=== PATIENT | female | born 1960 | race Caucasian/White ===

== ENCOUNTER 2020-06-02 10:41 | Outpatient (NON) | payer MEDICARE, SELFPAY ==
[2020-06-02 11:04] LABS: Alanine Aminotransferase 19 U/L (14-59); Albumin Level 3.4 g/dL (3.4-5.0); Alkaline Phosphatase 88 U/L (46-116); Anion Gap 3 mmol/L (8-16); Aspartate Amino Transferase < 10 U/L (15-37); Bilirubin,Total 0.4 mg/dL (0.00-1.00); Blood Urea Nitrogen 13 mg/dL (7-18); Calcium 9.2 mg/dL (8.5-10.1); Carbon Dioxide 35 mmol/L (21-32); Chloride 99 mmol/L (98-108); Estimated Glomerular Filt Rate 60; Glucose 216 mg/dL (70-99); Osmolality Calculated 291 mOsm/kg (285-295); Sodium 137 mmol/L (136-145); Total Protein 6.9 g/dL (6.4-8.2)
== END 2020-06-02 10:42 ==
LOC: CHSLAB 10:44
PROVIDERS: Visit Provider Family Medicine
DX: I87.333 Chronic venous hypertension (idiopathic) with ulcer and inflammation of bilateral lower extremity (principal); E11.9 Type 2 diabetes mellitus without complications; I11.0 Hypertensive heart disease with heart failure; I50.42 Chronic combined systolic (congestive) and diastolic (congestive) heart failure
CPT/HCPCS: 36415; 80053

== ENCOUNTER 2020-07-12 10:24 | Outpatient (CLI) | payer MEDICARE, OTHER, SELFPAY ==
--- NOTE | ~2020-07-12 | US_ITS ---
EXAMINATION: US pelvic complete w TV DATE: 07/12/2020 11:36 INDICATION: Personal history of other diseases of the female genital tract, postmenopausal bleeding TECHNIQUE: Multiple transabdominal and endovaginal sonographic images of the pelvis were obtained. COMPARISON: None. FINDINGS: The uterus measures 3.3 x 1.6 x 3.5 cm. The endometrial complex measures 5 mm. The ovaries are not visualized however no adnexal abnormality is seen. There is no free fluid in the pelvis. IMPRESSION: 1. No sonographic correlate for the patient's symptoms. Reviewed, dictated and finalized at location A.
== END 2020-07-12 10:25 | disposition home or self-care (01) ==
LOC: CHSIMG 10:25
PROVIDERS: PCP Family Medicine; Visit Provider Student in an Organized Health Care Education/Training Program
DX: Z87.42 Personal history of other diseases of the female genital tract (principal)
CPT/HCPCS: 76830; 76856

== ENCOUNTER 2020-08-30 09:57 | Outpatient (CLI) | payer MEDICARE, OTHER, SELFPAY ==
--- NOTE | ~2020-08-30 | MM_ITS ---
EXAMINATION: MM screening neno BI w marce HISTORY: Screening mammogram TECHNIQUE: Craniocaudal and mediolateral oblique 3-D tomosynthesis images were obtained and synthetic 2-D images were generated. CAD analysis was submitted and interpreted. COMPARISON: 08/02/2019 BREAST PARENCHYMAL COMPOSITION: The breasts are almost entirely fatty. FINDINGS: There is no evidence of suspicious mass, calcification, or architectural distortion to sugg est malignancy in either breast. There has been no suspicious interval change. IMPRESSION: 1. No mammographic evidence of malignancy. 2. Recommend routine screening mammography in one year. BI-RADS Category 1: Negative Reviewed, dictated and finalized at location A.
== END 2020-08-30 09:58 | disposition home or self-care (01) ==
LOC: CHSIMG 09:59
PROVIDERS: PCP Family Medicine; Visit Provider Student in an Organized Health Care Education/Training Program
DX: Z12.31 Encounter for screening mammogram for malignant neoplasm of breast (principal)
CPT/HCPCS: 77063; 77067

== ENCOUNTER 2020-10-31 09:01 | Outpatient (CLI) | payer SELFPAY | END 2020-10-31 09:02 | disposition home or self-care (01) | PROVIDERS: PCP Family Medicine; Visit Provider Family Medicine | DX: E11.9 Type 2 diabetes mellitus without complications (principal); Z71.3 Dietary counseling and surveillance | CPT/HCPCS: 99199 ==

== ENCOUNTER 2020-11-07 09:35 | Outpatient (CLI) | payer MEDICARE, OTHER, SELFPAY ==
[2020-11-07 15:16] LABS: SARS-CoV-2 RNA PCR Positive (Negative)
== END 2020-11-07 09:36 | disposition home or self-care (01) ==
LOC: CHSLAB 09:38
PROVIDERS: PCP Family Medicine; Visit Provider Family Medicine
DX: U07.1 COVID-19 (principal)
CPT/HCPCS: C9803; U0003; U0005

== ENCOUNTER 2020-11-12 18:30 | Emergency (ER) | payer MEDICARE, OTHER, SELFPAY ==
[2020-11-12] VITALS (11 sets, daily range): BP systolic 100–163; BP diastolic 68–108; PULSE 83–94; RESP 18–32; TEMP 37.1; O2SAT 90–100
--- NOTE | ~2020-11-12 | CT_ITS ---
EXAMINATION: CT diagnostic chest wo con DATE: 11/12/2020 21:04 INDICATION: Shortness of breath. Covid-positive. TECHNIQUE: Computed tomography (CT) of the chest was performed without intravenous contrast. Automate d exposure control and iterative reconstruction technique were employed. Exam dose: 1111.52 mGy-cm t otal exam DLP. COMPARISON: 03/11/2021 view chest FINDINGS: Cardiomegaly. No pericardial or pleural effusion. There is bilateral hilar and mediastinal lymph node prominence, likely reactive. There are prominent bilateral patchy consolidating pulmonary infiltrates suggesting bilateral pneumonia. Degenerative changes of the thoracic spine. No suspicious osteolytic or osteoblastic lesions are note d. IMPRESSION: Extensive patchy bilateral pulmonary consolidating infiltrates consistent with bilateral pneumonia, with probable reactive bilateral hilar or mediastinal adenopathy Cardiomegaly Reviewed, dictated and finalized at Location [facility]. Reviewed, dictated and finalized at location A. IMPRESSION: Extensive patchy bilateral pulmonary consolidating infiltrates con sistent with bilateral pneumonia, with probable reactive bilateral hilar or med iastinal adenopathy Cardiomegaly
--- NOTE | 2020-11-12 18:55 | ECG_ITS ---
Measurements Intervals [place] Rate: 88 P: -14 MO: 176 QRS: -52 QRSD: 82 T: 33 QT: 322 QTc: 391 Interpretive Statements SINUS RHYTHM LOW QRS VOLTAGE IN PRECORDIAL LEADS ANTEROSEPTAL INFARCT, AGE INDETERMINATE INFERIOR INFARCT, AGE INDETERMINATE BASELINE ARTIFACT- I, II, III, AVR, AVL, AVF, V1-V6 ABNORMAL ECG Electronically Signed On 11-13-2020 6:06:50 CDT by Channing Jonas D.O.
[2020-11-12] MEDS: SODIUM CHLORIDE 0.9% IV 500 ML (19:40)
[2020-11-12] MEDS: methylPREDNISolone SOD SUCC 125 MG VIAL IV PUSH (19:40)
[2020-11-12] MEDS: ALBUTEROL SULFATE (*SP) INHALER 2 PUFF INHALATION (20:02)
[2020-11-12 20:05] LABS: Basophils Absolute Auto 0.01 K/mm3 (0.00-0.10); Basophils Percent Auto 0.1 % (0.0-1.0); Eosinophils Absolute Auto 0.01 K/mm3 (0.02-0.50); Eosinophils Percent Auto 0.1 % (1.0-6.0); Hematocrit 40.7 % (35.0-49.0); Hemoglobin 13.1 g/dL (12.0-15.0); Immature Granulocyte Absolute 0.07 K/mm3 (0.00-0.00); Immature Granulocyte Percent A 0.9 % (0.0-0.0); Lymphocytes Percent Auto 8.8 % (18.0-42.0); Mean Corpuscular HGB Conc 32.2 g/dL (32.0-36.0); Mean Corpuscular Hemoglobin 30.8 pg (27.0-31.0); Mean Corpuscular Volume 95.5 fL (78.0-102.0); Monocytes Absolute Auto 0.68 K/mm3 (0.10-0.90); Monocytes Percent Auto 8.5 % (2.0-11.0); Neutrophils Absolute Auto 6.5 K/mm3 (1.7-7.2); Neutrophils Percent Auto 81.6 % (50.0-70.0); Platelet Count Result 243 K/mm3 (150-420); Red Blood Count 4.26 M/mm3 (4.20-5.40); Red Cell Distribution Width 14.3 % (11.6-14.4)
[2020-11-12 20:17] LABS: Alanine Aminotransferase 22 U/L (14-59); Albumin Level 2.8 g/dL (3.4-5.0); Alkaline Phosphatase 58 U/L (46-116); Aspartate Amino Transferase 95 U/L (15-37); Bilirubin,Total 0.5 mg/dL (0.00-1.00); Blood Urea Nitrogen 49 mg/dL (7-18); Calcium 7.8 mg/dL (8.5-10.1); Carbon Dioxide 32 mmol/L (21-32); Estimated CRCL calculation 31 ml/min; Estimated Glomerular Filt Rate 22; Glucose 105 mg/dL (70-99); Total Protein 6.9 g/dL (6.4-8.2)
[2020-11-12] MEDS: AZITHROMYCIN 250 MG TABLET 500 MG PO (22:28)
[2020-11-12] MEDS: cloNIDine HCL 0.2 MG TABLET PO (22:29)
[2020-11-12] MEDS: CALCIUM CARBONATE (TUMS) 500 MG (200 MG ELEMENTAL) 1000 MG PO (22:29)
[2020-11-12 22:35] LABS: Sodium 131 mmol/L (136-145)
[2020-11-12 22:36] LABS: Osmolality Calculated 285 mOsm/kg (285-295); Potassium 4.9 mmol/L (3.5-5.1)
[2020-11-12 22:37] LABS: Anion Gap 8 mmol/L (8-16); Chloride 91 mmol/L (98-108)
--- NOTE | 2020-11-12 23:11 | PC.NURSE ---
2300 PT SWITCHED TO N/C FOR AMBULANCE TRANSFER SAO2 92%
--- NOTE | 2020-11-12 23:26 | ED.SOB ---
HPI - SOB/Dyspnea General Chief Complaint: Shortness of Breath/Dyspnea Stated Complaint: SOB Time Seen by Provider: 11/12/20 18:32 Source: patient, EMS and RN notes reviewed Mode of arrival: EMS Limitations: no limitations History of Present Illness MD elicited complaint: shortness of breath Pertinent past history: pneumonia and other (covid +) Onset (ago): hour(s) (4) Severity: severe Exacerbating factors: nothing Relieving factors: oxygen and bronchodilators Associated symptoms: chest pain and wheezing Treatment prior to arrival: oxygen and bronchodilator Related Data Home oxygen amount: none Home Medications Medication Instructions Recorded Confirmed albuterol sulfate 90 mcg/actuation 2 puff INHALATION Q4H PRN 07/26/20 11/12/20 aerosol inhaler cholecalciferol (vitamin D3) 25 50 mcg PO DAILY 07/26/20 11/12/20 mcg (1,000 unit) capsule clonidine HCl 0.2 mg tablet 0.2 mg PO BID 07/26/20 11/12/20 docusate sodium 100 mg capsule 100 mg PO TID 07/26/20 11/12/20 famotidine 20 mg tablet 20 mg PO BID 07/26/20 11/12/20 fluticasone propionate 50 1 spray INTRANASAL DAILY 07/26/20 11/12/20 mcg/actuation nasal spray,suspension levothyroxine 25 mcg capsule 275 mcg PO DAILY 07/26/20 11/12/20 losartan 100 mg tablet 100 mg PO DAILY 07/26/20 11/12/20 nitrofurantoin macrocrystal 50 mg 50 mg PO DAILY 07/26/20 11/12/20 capsule potassium chloride 20 mEq 40 meq PO BID 07/26/20 11/12/20 tablet,extended release ranolazine 500 mg tablet,extended 1,000 mg PO Q12H 07/26/20 11/12/20 release,12 hr risperidone 4 mg tablet 4 mg PO HS 07/26/20 11/12/20 trazodone 100 mg tablet 200 mg PO QHS PRN 07/26/20 11/12/20 cyanocobalamin (vitamin B-12) 1,000 mcg PO DAILY 11/12/20 11/12/20 duloxetine 90 mg PO DAILY 11/12/20 11/12/20 fluocinolone acetonide oil 3 - 5 drp EACH EAR BID PRN 11/12/20 11/12/20 isosorbide mononitrate 30 mg PO DAILY 11/12/20 11/12/20 lamotrigine 100 mg PO DAILY 11/12/20 11/12/20 lamotrigine 200 mg PO HS 11/12/20 11/12/20 metoprolol tartrate 25 mg PO BID 11/12/20 11/12/20 mupirocin 1 applic TOPICAL BID 11/12/20 11/12/20 nitroglycerin See Rx Instructions .ROUTE .COMPLEX 11/12/20 11/12/20 rosuvastatin 20 mg PO HS 11/12/20 11/12/20 sitagliptin [Januvia] 50 mg PO DAILY 11/12/20 11/12/20 torsemide 20 mg PO BID 11/12/20 11/12/20 Allergies Allergy/AdvReac Type Severity Reaction Status Date / Time dapagliflozin [From [facility]] Allergy Intermediate Unknown Verified 11/12/20 19:54 Penicillins Allergy Unknown Unknown Verified 11/12/20 19:54 Sulfa (Sulfonamide Allergy Unknown Unknown Verified 11/12/20 19:54 Antibiotics) Review of Systems Review of Systems: All systems reviewed & are unremarkable except as noted in HPI and below Respiratory: Respiratory: Reports dyspnea and Reports wheezing PMFSH Past Medical History Medical History Acid reflux Anxiety Arthritis Asthma COPD (chronic obstructive pulmonary disease) Deviated septum Diabetes Heart disease Hypertension Thyroid disorder Surgical History Surgical History History of dilation and curettage History of sinus surgery History of tonsillectomy and adenoidectomy Family History Family History Father Hypertension Heart disease Skin cancer Mother Asthma Diabetes mellitus Hypertension Depression Heart disease Thyroid disorder Sibling Asthma Diabetes mellitus Hypertension Depression Heart disease Son Depression Other Family history of arthritis Family history of chronic obstructive pulmonary disease Family history of mental disorder Social History Social History Smoking status: Former smoker Alcohol intake: current Substance use: never Gender identity (if verbalized by the patient): Female Agree to blood
--- NOTE | 2020-11-12 23:33 | PC.NURSE ---
2320 pt loaded to ems cot with maxislide. tolerated well.
== END 2020-11-12 23:30 | disposition short-term general hospital (02) ==
LOC: CHSED 18:34
PROVIDERS: Emergency Provider Emergency Medicine; PCP Family Medicine
DX: U07.1 COVID-19 (principal); J18.9 Pneumonia, unspecified organism; J44.9 Chronic obstructive pulmonary disease, unspecified; E11.9 Type 2 diabetes mellitus without complications; I10 Essential (primary) hypertension; Z87.891 Personal history of nicotine dependence
CPT/HCPCS: 36415; 36600; 71250; 80053; 85025; 93005; 94640; 96361; 96365; 96375; 99285; A9270; J0696; J2930; J7040

== ENCOUNTER 2020-11-13 01:11 | Inpatient (IN) | payer MEDICARE, OTHER, SELFPAY ==
[2020-11-12 23:50] VITALS: BP 127/58; PULSE 77; RESP 22; TEMP 37; O2SAT 90; BMI 60.8
[2020-11-13] VITALS (24 sets, daily range): BP systolic 102–140; BP diastolic 55–104; PULSE 58–86; RESP 15–32; TEMP 36.1–37; O2SAT 91–98; BMI 60.8
--- NOTE | ~2020-11-13 | XR_ITS ---
EXAMINATION: XR chest 1V portable DATE: 11/15/2020 05:46 INDICATION: Shortness of breath. COVID-19 pneumonia. TECHNIQUE: A single frontal view of the chest was obtained. COMPARISON: Chest 2 views 116/20, chest CT 11/12/2020 FINDINGS: There are patchy airspace opacities in all lung zones bilaterally. No pleural effusion or p neumothorax. Cardiomegaly is noted. IMPRESSION: 1. Diffuse lung disease, consistent with COVID-19 pneumonia. 2. Cardiomegaly. Reviewed, dictated and finalized at location A.
--- NOTE | 2020-11-13 02:02 | ADMGEN ---
This patient, Judy Panchal, was admitted to IMU Room 214-01 at 2350. Patient/family oriented to hospital policies and general routines including ID bracelet, bed and alarms, visiting hours, pain management, procedures, bathroom and other care routines, personal items, smoking policy, room service/diet, and visiting hours. Information on how to activate the Rapid Response Team has been discussed. Patient/Family are encouraged to report perceived risks to care and to ask questions if they do not understand what they are told or what they should do.
--- NOTE | 2020-11-13 02:23 | PM.IMHP ---
H&P: HPI History of Present Illness Date/Time: 11/13/20 02:23 Chief Complaint: Shortness of breath Narrative: This is a 60-year-old female with past medical history significant for morbid obesity, obstructive sleep apnea noncompliant with CPAP machine, type 2 diabetes mellitus, hypertension, hypothyroidism, chronic kidney disease GERD, COPD. Patient comes as a direct transfer from [facility] Emergency Room after the patient presented there due to shortness of breath she tested positive for COVID-19 roughly 5-7 days ago patient is very obtunded and confused on Airvo can not give any history. Patient was found to have diffuse infiltrates on CT of the chest and with acute hypoxic respiratory failure was transferred to our facility due to tenuous respiratory status and for possible ventilator support as needed. Review of Systems Review of Systems: ROS unobtainable: Yes unobtainable due to mental status (Obtunded) PMFSH Past Medical History Medical History Acid reflux Anxiety Arthritis Asthma COPD (chronic obstructive pulmonary disease) Deviated septum Diabetes Heart disease Hypertension Thyroid disorder Surgical History Surgical History History of dilation and curettage History of sinus surgery History of tonsillectomy and adenoidectomy Family History Family History Father Hypertension Heart disease Skin cancer Mother Asthma Diabetes mellitus Hypertension Depression Heart disease Thyroid disorder Sibling Asthma Diabetes mellitus Hypertension Depression Heart disease Son Depression Other Family history of arthritis Family history of chronic obstructive pulmonary disease Family history of mental disorder Social History Social History Smoking packs per day: 1 Smoking cigarettes per day: 20.0 Years smoked: 6 Smoking pack-years: 6.00 Smoking status: Former smoker Tobacco type: cigarettes Alcohol intake: current Drinks per week: 2 Substance use: never Substance use type: does not use Gender identity (if verbalized by the patient): Female Spiritual care concerns: No Agree to blood products: Yes Meds Home Medications and Allergies Home Medications Medication Instructions Recorded Confirmed Type albuterol sulfate 90 mcg/actuation 2 puff INHALATION Q4H PRN 07/26/20 11/13/20 History aerosol inhaler cholecalciferol (vitamin D3) 25 50 mcg PO DAILY 07/26/20 11/13/20 History mcg (1,000 unit) capsule clonidine HCl 0.2 mg tablet 0.2 mg PO BID 07/26/20 11/13/20 History docusate sodium 100 mg capsule 100 mg PO TID 07/26/20 11/13/20 History famotidine 20 mg tablet 20 mg PO BID 07/26/20 11/13/20 History fluticasone propionate 50 1 spray INTRANASAL DAILY 07/26/20 11/13/20 History mcg/actuation nasal spray,suspension levothyroxine 25 mcg capsule 275 mcg PO DAILY 07/26/20 11/13/20 History losartan 100 mg tablet 100 mg PO DAILY 07/26/20 11/13/20 History nitrofurantoin macrocrystal 50 mg 50 mg PO DAILY 07/26/20 11/13/20 History capsule potassium chloride 20 mEq 40 meq PO BID 07/26/20 11/13/20 History tablet,extended release ranolazine 500 mg tablet,extended 1,000 mg PO BID 07/26/20 11/13/20 History release,12 hr risperidone 4 mg tablet 4 mg PO HS 07/26/20 11/13/20 History trazodone 100 mg tablet 200 mg PO HS 07/26/20 11/13/20 History cyanocobalamin (vitamin B-12) 1,000 mcg PO DAILY 11/12/20 11/13/20 History duloxetine 90 mg PO DAILY 11/12/20 11/13/20 History fluocinolone acetonide oil 3 - 5 drp EACH EAR BID PRN 11/12/20 11/13/20 History isosorbide mononitrate 30 mg PO DAILY 11/12/20 11/13/20 History lamotrigine 100 mg PO QAM 11/12/20 11/13/20 History lamotrigine 200 mg PO HS 11/12/20 11/13/20 History metoprolol tartrate 25 mg PO Q1
[2020-11-13 02:49] LABS: Alveolar/Arterial O2 Gradient 407.5 mmHg; Base Excess ABG 0.8 mEq/l (+/-2.0); Carboxyhemoglobin 0.3 % THb (0-2.0); Fractional Inspired Oxygen 80 %; Methemoglobin ABG 0.1 %THb (0-1.5); Modified Allen's Test Pass; Oxygen Content ABG 18.2 %vol (16.0-22.0); Oxygen Saturation ABG 97.8 % (95.0-100.0); Oxyhemoglobin 96.7 % THb (90.0-100.0); PCO2 ABG 49.7 mmHg (35.0-45.0); PO2 ABG 110.7 mmHg (80.0-100.0); PO2 FiO2 Ratio Arterial Blood 1.38 %; Reduced Hemoglobin 2.9 %THb (0-5.0); Site Drawn LEFT RADIAL; Total Hemoglobin 13.3 g/dL (12.0-18.0); pH ABG 7.353 (7.350-7.450)
[2020-11-13 02:50] LABS: Device BIPAP
[2020-11-13 02:52] LABS: Expiratory Pressure 8 cmH2O; Inspiratory Pressure 18 cmH2O
[2020-11-13 02:53] LABS: Hematocrit 39.6 % (37.0-47.0); Hemoglobin 12.8 g/dL (12.0-15.0); Mean Corpuscular HGB Conc 32.3 g/dl (32-36); Mean Corpuscular Hemoglobin 31.3 pg (26-34); Mean Corpuscular Volume 96.8 fl (80-100); Mean Platelet Volume 9.9 fl (7.4-10.4); Platelet Count Result 239 k/mm3 (150-375); Red Blood Count 4.09 M/mm3 (4.2-5.4); Red Cell Distribution Width 14.5 % (11.5-14.5); White Blood Count 6.9 K/mm3 (4.5-10.0)
[2020-11-13 03:08] LABS: Anion Gap 10 mmol/L (8-16); Blood Urea Nitrogen 52 mg/dL (7-17); Calcium 7.7 mg/dL (8.4-10.2); Carbon Dioxide 31 mmol/L (22-30); Chloride 91 mmol/L (98-107); Estimated CRCL calculation 40 ml/min; Estimated Glomerular Filt Rate 29; Glucose 200 mg/dL (65-110); Potassium 4.8 mmol/L (3.4-5.0); Sodium 132 mmol/L (137-145)
[2020-11-13 03:12] LABS: Prothrombin Time 12.6 Seconds (11.1-14.7)
[2020-11-13 03:18] LABS: Alanine Aminotransferase 19 U/L (4-35)
[2020-11-13] MEDS: REMDESIVIR 200 MG/NS 250 ML 200 MG/250 ML BAG 250 MG IVPB (04:12)
--- NOTE | 2020-11-13 05:36 | PHAR ---
REMDESEVIR - DISCUSSED RISK/REWARD WITH DR. CAMPA. PATIENT GFR IS 29, BUT STILL DECIDED TO GO AHEAD WITH TREATMENT DUE TO SEVERITY OF ILLNESS.
[2020-11-13] MEDS: HEPARIN SODIUM 5,000 UNITS/ML VIAL 5000 UNITS SUB-Q ×3 (06:48→21:42)
[2020-11-13 09:20] LABS: Glucose Point of Care 233 mg/dl (65-105)
[2020-11-13] MEDS: FAMOTIDINE 20 MG TABLET PO ×2 (09:30→17:37)
[2020-11-13] MEDS: CHOLECALCIFEROL 1,000 UNITS TABLET 2000 UNITS PO (09:30)
[2020-11-13] MEDS: CYANOCOBALAMIN 1,000 MCG TABLET 1000 MCG PO (09:30)
[2020-11-13] MEDS: RANOLAZINE 500 MG TAB.ER.12H 1000 MG PO ×2 (09:30→17:36)
[2020-11-13] MEDS: DOCUSATE SODIUM 100 MG CAPSULE PO (09:30)
[2020-11-13] MEDS: DULoxetine HCL 30 MG CAPSULE.DR 90 MG PO (09:30)
[2020-11-13] MEDS: lamoTRIgine 100 MG TABLET PO (09:31)
[2020-11-13] MEDS: ISOSORBIDE MONONITRATE 30 MG TAB.ER.24H PO (09:31)
[2020-11-13] MEDS: NITROFURANTOIN MACROCRYSTALS 50 MG CAP PO (09:31)
[2020-11-13] MEDS: cloNIDine HCL 0.2 MG TABLET PO ×2 (09:31→17:36)
[2020-11-13] MEDS: METOPROLOL TARTRATE 25 MG TABLET PO ×2 (09:31→20:35)
[2020-11-13] MEDS: FLUTICASONE PROPIONATE 0.05% NA SPR 16 GM BTL (*BKC) 1 SPRAY NASAL (09:31)
[2020-11-13] MEDS: TOLNAFTATE 1% POWDER 45 GM BTL 1 APPLIC TOPICAL ×2 (09:31→20:36)
[2020-11-13 12:32] LABS: Hemoglobin A1C 7.1 % (<5.7)
[2020-11-13] MEDS: INSULIN ASPART (*BKC) 100 UNITS/ML SUB-Q ×2 (13:01→17:37)
[2020-11-13 14:32] LABS: Glucose Point of Care 259 mg/dl (65-105)
[2020-11-13 17:06] LABS: Glucose Point of Care 269 mg/dl (65-105)
--- NOTE | 2020-11-13 18:12 | PM.IMPN ---
Progress Note: A&P Assessment and Plan (1) Acute on chronic respiratory failure with hypoxia and hypercapnia: Code(s): J96.21 - Acute and chronic respiratory failure with hypoxia; J96.22 - Acute and chronic respiratory failure with hypercapnia Status: Acute Assessment and Plan: The patient is currently on Airvo Will place patient on BiPAP Try and keep oxygen saturation at 92% (2) Pneumonia due to COVID-19 virus: Code(s): U07.1 - COVID-19; J12.82 - Pneumonia due to coronavirus disease 2018 Status: Acute Assessment and Plan: Started on remdesivir and dexamethasone Rocephin and Zithromax for added antibacterial coverage Await cultures (3) Morbid obesity with BMI of 60.0-69.9, adult: Code(s): E66.01 - Morbid (severe) obesity due to excess calories; Z68.44 - Body mass index [BMI] 60.0-69.9, adult Status: Acute Assessment and Plan: Currently NPO Lifestyle and diet modifications (4) Obstructive sleep apnea: Code(s): G47.33 - Obstructive sleep apnea (adult) (pediatric) Status: Acute Assessment and Plan: Noncompliance with CPAP (5) COPD (chronic obstructive pulmonary disease): Code(s): J44.9 - Chronic obstructive pulmonary disease, unspecified Status: Acute Assessment and Plan: Breathing treatments (6) Venous stasis dermatitis of both lower extremities: Code(s): I87.2 - Venous insufficiency (chronic) (peripheral) Status: Acute Assessment and Plan: Compression stockings (7) Hypertension: Code(s): I10 - Essential (primary) hypertension Status: Acute Assessment and Plan: Continue to monitor (8) GERD (gastroesophageal reflux disease): Code(s): K21.9 - Gastro-esophageal reflux disease without esophagitis Status: Acute Assessment and Plan: PPI as needed (9) Intertriginous candidiasis: Code(s): B37.2 - Candidiasis of skin and nail Status: Acute Assessment and Plan: Local care (10) Type 2 diabetes mellitus: Code(s): E11.9 - Type 2 diabetes mellitus without complications Status: Acute Assessment and Plan: Currently NPO Insulin sliding scale as needed Holding Januvia (11) Acute renal failure: Code(s): N17.9 - Acute kidney failure, unspecified Status: Acute Assessment and Plan: Unknown patient's baseline Will be holding losartan and torsemide Beltran catheter in Daily a strict intake and output Daily BMP Continue to monitor Avoid nephrotoxins Subjective Date/time seen: 11/13/20 18:12 Chief Complaint: Shortness of breath Narrative: This is a 60-year-old female with past medical history significant for morbid obesity, obstructive sleep apnea noncompliant with CPAP machine, type 2 diabetes mellitus, hypertension, hypothyroidism, chronic kidney disease GERD, COPD. Patient comes as a direct transfer from [facility] Emergency Room after the patient presented there due to shortness of breath she tested positive for COVID-19 roughly 5-7 days ago patient is very obtunded and confused on Airvo can not give any history. Patient was found to have diffuse infiltrates on CT of the chest and with acute hypoxic respiratory failure was transferred to our facility due to tenuous respiratory status and for possible ventilator support as needed. interval history patient remains clinically stable states feeling much compared to when she arrived not a short of breath, patient is being treated with dexamethasone and remdesivir, will continue to monitor. suspect patient may have community-acquired pneumonia and being treated with Rocephin and azithromycin Review of Systems Review of Systems: All systems reviewed & are unremarkable except as noted in HPI and below Exam Narrative: morbidly obese Patient is comfortable, NAD HEENT: eyes are clear and none icteric LUNGS: normal respiratory effort ABD: distended Lower extremities: no
[2020-11-13] MEDS: ROSUVASTATIN 10 MG TABLET 20 MG PO (20:34)
[2020-11-13] MEDS: lamoTRIgine 100 MG TABLET 200 MG PO (20:34)
[2020-11-13] MEDS: risperiDONE 1 MG TABLET 4 MG PO (20:35)
[2020-11-13] MEDS: INSULIN GLARGINE (*BKC) 100 UNITS/ML 10 UNITS SUB-Q (20:36)
[2020-11-13 21:53] LABS: Glucose Point of Care 292 mg/dl (65-105)
[2020-11-14] VITALS (18 sets, daily range): BP systolic 102–126; BP diastolic 45–80; PULSE 53–72; RESP 20–24; TEMP 36.2–37.1; O2SAT 90–100
[2020-11-14] MEDS: HEPARIN SODIUM 5,000 UNITS/ML VIAL 5000 UNITS SUB-Q ×3 (05:49→22:00)
[2020-11-14] MEDS: LEVOTHYROXINE SODIUM 125 MCG TABLET PO (05:49)
[2020-11-14] MEDS: LEVOTHYROXINE SODIUM 150 MCG TABLET PO (05:49)
[2020-11-14 06:26] LABS: Alanine Aminotransferase 19 U/L (4-35); Estimated CRCL calculation 55 ml/min; Estimated Glomerular Filt Rate 42; Prothrombin Time 12.8 Seconds (11.1-14.7)
[2020-11-14] MEDS: TOLNAFTATE 1% POWDER 45 GM BTL 1 APPLIC TOPICAL ×2 (09:41→20:24)
[2020-11-14] MEDS: FLUTICASONE PROPIONATE 0.05% NA SPR 16 GM BTL (*BKC) 1 SPRAY NASAL (09:41)
[2020-11-14] MEDS: RANOLAZINE 500 MG TAB.ER.12H 1000 MG PO ×2 (09:42→16:53)
[2020-11-14] MEDS: FAMOTIDINE 20 MG TABLET PO ×2 (09:43→16:53)
[2020-11-14] MEDS: cloNIDine HCL 0.2 MG TABLET PO ×2 (09:43→16:53)
[2020-11-14] MEDS: METOPROLOL TARTRATE 25 MG TABLET PO ×2 (09:43→20:15)
[2020-11-14] MEDS: CYANOCOBALAMIN 1,000 MCG TABLET 1000 MCG PO (09:43)
[2020-11-14] MEDS: CHOLECALCIFEROL 1,000 UNITS TABLET 2000 UNITS PO (09:43)
[2020-11-14] MEDS: lamoTRIgine 100 MG TABLET PO (09:43)
[2020-11-14] MEDS: DULoxetine HCL 30 MG CAPSULE.DR 90 MG PO (09:43)
[2020-11-14] MEDS: ISOSORBIDE MONONITRATE 30 MG TAB.ER.24H PO (09:43)
[2020-11-14] MEDS: NITROFURANTOIN MACROCRYSTALS 50 MG CAP PO (09:44)
[2020-11-14] MEDS: INSULIN ASPART (*BKC) 100 UNITS/ML SUB-Q ×3 (09:44→16:53)
[2020-11-14 09:45] LABS: Glucose Point of Care 211 mg/dl (65-105)
[2020-11-14 11:52] LABS: Glucose Point of Care 271 mg/dl (65-105)
[2020-11-14] MEDS: REMDESIVIR 100 MG/NS 250 ML 100 MG/250 ML BAG 250 MG IVPB (14:39)
[2020-11-14 16:39] LABS: Glucose Point of Care 267 mg/dl (65-105)
--- NOTE | 2020-11-14 16:56 | PM.IMPN ---
Progress Note: A&P Assessment and Plan (1) Acute on chronic respiratory failure with hypoxia and hypercapnia: Code(s): J96.21 - Acute and chronic respiratory failure with hypoxia; J96.22 - Acute and chronic respiratory failure with hypercapnia Status: Acute Assessment and Plan: The patient is currently on Airvo Will place patient on BiPAP Try and keep oxygen saturation at 92% order CXr tomorrow (2) Pneumonia due to COVID-19 virus: Code(s): U07.1 - COVID-19; J12.82 - Pneumonia due to coronavirus disease 2019 Status: Acute Assessment and Plan: Started on remdesivir and dexamethasone Rocephin and Zithromax for added antibacterial coverage Await cultures (3) Morbid obesity with BMI of 60.0-69.9, adult: Code(s): E66.01 - Morbid (severe) obesity due to excess calories; Z68.44 - Body mass index [BMI] 60.0-69.9, adult Status: Acute Assessment and Plan: Currently NPO Lifestyle and diet modifications (4) Obstructive sleep apnea: Code(s): G47.33 - Obstructive sleep apnea (adult) (pediatric) Status: Acute Assessment and Plan: Noncompliance with CPAP (5) COPD (chronic obstructive pulmonary disease): Code(s): J44.9 - Chronic obstructive pulmonary disease, unspecified Status: Acute Assessment and Plan: Breathing treatments (6) Venous stasis dermatitis of both lower extremities: Code(s): I87.2 - Venous insufficiency (chronic) (peripheral) Status: Acute Assessment and Plan: Compression stockings (7) Hypertension: Code(s): I10 - Essential (primary) hypertension Status: Acute Assessment and Plan: Continue to monitor (8) GERD (gastroesophageal reflux disease): Code(s): K21.9 - Gastro-esophageal reflux disease without esophagitis Status: Acute Assessment and Plan: PPI as needed (9) Intertriginous candidiasis: Code(s): B37.2 - Candidiasis of skin and nail Status: Acute Assessment and Plan: Local care (10) Type 2 diabetes mellitus: Code(s): E11.9 - Type 2 diabetes mellitus without complications Status: Acute Assessment and Plan: Currently NPO Insulin sliding scale as needed Holding Januvia (11) Acute renal failure: Code(s): N17.9 - Acute kidney failure, unspecified Status: Acute Assessment and Plan: Unknown patient's baseline Will be holding losartan and torsemide Beltran catheter in Daily a strict intake and output Daily BMP Continue to monitor Avoid nephrotoxins Subjective Date/time seen: 11/14/20 16:56 Interval history: 60-year-old female with past medical history significant for morbid obesity, obstructive sleep apnea noncompliant with CPAP machine, type 2 diabetes mellitus, hypertension, hypothyroidism, chronic kidney disease GERD, COPD. Patient comes as a direct transfer from [facility] Emergency Room after the patient presented there due to shortness of breath she tested positive for COVID-19 roughly 5-7 days ago patient is very obtunded and confused on Airvo can not give any history. Pt is currently being treated for covid Review of Systems Review of Systems: All systems reviewed & are unremarkable except as noted in HPI and below Exam Narrative: morbidly obese Patient on high flow oxygen HEENT: eyes are clear and none icteric LUNGS: normal respiratory effort ABDO: distended Lower extremities: no edema SKIN:red sores on her abdominal folds and groin area Neuro: grossly intact normal speech. Objective Data Vital Signs Vital Signs: Vital Signs - 24 hr 11/13/20 18:00 11/13/20 20:00 11/13/20 21:00 Temperature 37.0 C Pulse Rate 74 71 69 Respiratory Rate 25 H 20 Blood Pressure 139/89 Pulse Oximetry 94 94 11/14/20 00:00 11/14/20 02:44 11/14/20 04:00 Temperature 37.1 C 36.4 C Pulse Rate 58 L 59 L 53 L Respiratory Rate 24 H 21 H 22 H Blood Pressure 126/80 102/52 L Pulse
[2020-11-14] MEDS: risperiDONE 1 MG TABLET 4 MG PO (20:13)
[2020-11-14] MEDS: lamoTRIgine 100 MG TABLET 200 MG PO (20:13)
[2020-11-14] MEDS: ROSUVASTATIN 10 MG TABLET 20 MG PO (20:15)
[2020-11-14] MEDS: INSULIN GLARGINE (*BKC) 100 UNITS/ML 10 UNITS SUB-Q (20:17)
[2020-11-14 20:33] LABS: Glucose Point of Care 288 mg/dl (65-105)
[2020-11-15] VITALS (19 sets, daily range): BP systolic 102–138; BP diastolic 50–89; PULSE 55–115; RESP 20–22; TEMP 36.2–36.7; O2SAT 93–99
[2020-11-15] MEDS: LEVOTHYROXINE SODIUM 125 MCG TABLET PO (05:10)
[2020-11-15] MEDS: LEVOTHYROXINE SODIUM 150 MCG TABLET PO (05:10)
[2020-11-15 05:39] LABS: INR 0.9; Prothrombin Time 12.3 Seconds (11.1-14.7)
[2020-11-15 05:54] LABS: Alanine Aminotransferase 21 U/L (4-35); Estimated CRCL calculation 71 ml/min; Estimated Glomerular Filt Rate 56
[2020-11-15] MEDS: HEPARIN SODIUM 5,000 UNITS/ML VIAL 5000 UNITS SUB-Q ×3 (06:14→21:44)
[2020-11-15] MEDS: SALINE 0.65% NAS SOLN 44 ML BTL 1 SPRAY NASAL (08:08)
[2020-11-15] MEDS: TOLNAFTATE 1% POWDER 45 GM BTL 1 APPLIC TOPICAL ×2 (08:09→21:52)
[2020-11-15] MEDS: RANOLAZINE 500 MG TAB.ER.12H 1000 MG PO ×3 (08:09→21:47)
[2020-11-15] MEDS: lamoTRIgine 100 MG TABLET PO (08:10)
[2020-11-15] MEDS: FLUTICASONE PROPIONATE 0.05% NA SPR 16 GM BTL (*BKC) 1 SPRAY NASAL (08:10)
[2020-11-15] MEDS: METOPROLOL TARTRATE 25 MG TABLET PO ×2 (08:10→21:57)
[2020-11-15] MEDS: CHOLECALCIFEROL 1,000 UNITS TABLET 2000 UNITS PO (08:11)
[2020-11-15] MEDS: DULoxetine HCL 30 MG CAPSULE.DR 90 MG PO (08:11)
[2020-11-15] MEDS: FAMOTIDINE 20 MG TABLET PO ×2 (08:11→16:52)
[2020-11-15] MEDS: NITROFURANTOIN MACROCRYSTALS 50 MG CAP PO (08:12)
[2020-11-15 08:52] LABS: Glucose Point of Care 242 mg/dl (65-105)
[2020-11-15] MEDS: INSULIN ASPART (*BKC) 100 UNITS/ML SUB-Q ×3 (09:48→16:51)
[2020-11-15] MEDS: REMDESIVIR 100 MG/NS 250 ML 100 MG/250 ML BAG 250 MG IVPB (11:50)
[2020-11-15] MEDS: ISOSORBIDE MONONITRATE 30 MG TAB.ER.24H PO (11:50)
[2020-11-15] MEDS: cloNIDine HCL 0.2 MG TABLET PO ×2 (11:51→16:52)
[2020-11-15] MEDS: CYANOCOBALAMIN 1,000 MCG TABLET 1000 MCG PO (11:51)
[2020-11-15 13:09] LABS: Glucose Point of Care 325 mg/dl (65-105)
--- NOTE | 2020-11-15 16:10 | PM.IMPN ---
Progress Note: A&P Assessment and Plan (1) Acute on chronic respiratory failure with hypoxia and hypercapnia: Code(s): J96.21 - Acute and chronic respiratory failure with hypoxia; J96.22 - Acute and chronic respiratory failure with hypercapnia Status: Acute Assessment and Plan: The patient is currently on Airvo Will place patient on BiPAP Try and keep oxygen saturation at 92% order CXr tomorrow (2) Pneumonia due to COVID-19 virus: Code(s): U07.1 - COVID-19; J12.82 - Pneumonia due to coronavirus disease 2019 Status: Acute Assessment and Plan: Started on remdesivir and dexamethasone Rocephin and Zithromax for added antibacterial coverage Await cultures (3) Morbid obesity with BMI of 60.0-69.9, adult: Code(s): E66.01 - Morbid (severe) obesity due to excess calories; Z68.44 - Body mass index [BMI] 60.0-69.9, adult Status: Acute Assessment and Plan: Currently NPO Lifestyle and diet modifications (4) Obstructive sleep apnea: Code(s): G47.33 - Obstructive sleep apnea (adult) (pediatric) Status: Acute Assessment and Plan: Noncompliance with CPAP (5) COPD (chronic obstructive pulmonary disease): Code(s): J44.9 - Chronic obstructive pulmonary disease, unspecified Status: Acute Assessment and Plan: Breathing treatments (6) Venous stasis dermatitis of both lower extremities: Code(s): I87.2 - Venous insufficiency (chronic) (peripheral) Status: Acute Assessment and Plan: Compression stockings (7) Hypertension: Code(s): I10 - Essential (primary) hypertension Status: Acute Assessment and Plan: Continue to monitor (8) GERD (gastroesophageal reflux disease): Code(s): K21.9 - Gastro-esophageal reflux disease without esophagitis Status: Acute Assessment and Plan: PPI as needed (9) Intertriginous candidiasis: Code(s): B37.2 - Candidiasis of skin and nail Status: Acute Assessment and Plan: Local care (10) Type 2 diabetes mellitus: Code(s): E11.9 - Type 2 diabetes mellitus without complications Status: Acute Assessment and Plan: Currently NPO Insulin sliding scale as needed Holding Januvia (11) Acute renal failure: Code(s): N17.9 - Acute kidney failure, unspecified Status: Acute Assessment and Plan: Unknown patient's baseline Will be holding losartan and torsemide Beltran catheter in Daily a strict intake and output Daily BMP Continue to monitor Avoid nephrotoxins 11/15/2020 Respiratory status rapidly improving Continue current medical regimen for coronavirus 19 DC Beltran catheter when able Consult PT OT Encourage mobilization of patient Subjective Date/time seen: 11/15/20 17:10 pt improved able to be weaned from airvo now on 12L Exam Narrative: morbidly obese HEENT: eyes are clear and none icteric, EOMI LUNGS: normal respiratory effort, speaking in full sentences without distress ABD: soft, NT, ND Lower extremities: no edema Neuro: CN grossly intact normal speech. no no focal neurological deficits appreciated Objective Data Vital Signs Vital Signs: Vital Signs - 24 hr 11/14/20 22:19 11/14/20 23:46 11/14/20 23:47 Temperature 97.8 F Pulse Rate 67 Respiratory Rate 22 H Blood Pressure 106/53 L Pulse Oximetry 93 96 91 11/15/20 00:00 11/15/20 04:00 11/15/20 04:22 Temperature 97.9 F Pulse Rate 55 L 56 L Respiratory Rate 22 H Blood Pressure 102/50 L Pulse Oximetry 95 94 11/15/20 05:43 11/15/20 08:00 11/15/20 09:36 Temperature 97.1 F L Pulse Rate 65 66 Respiratory Rate 20 Blood Pressure 130/87 Pulse Oximetry 95 95 11/15/20 10:00 11/15/20 12:00 11/15/20 12:41 Temperature 97.6 F Pulse Rate 59 L 61 58 L Respiratory Rate Blood Pressure 121/81 Pulse Oximetry 99 99 11/15/20 14:00 11/15/20 15:44 11/15/20 15:59 Temperature 97.6 F Puls
[2020-11-15 16:38] LABS: Glucose Point of Care 313 mg/dl (65-105)
[2020-11-15 20:21] LABS: Glucose Point of Care 329 mg/dl (65-105)
[2020-11-15] MEDS: lamoTRIgine 100 MG TABLET 200 MG PO (21:45)
[2020-11-15] MEDS: INSULIN GLARGINE (*BKC) 100 UNITS/ML 10 UNITS SUB-Q (21:46)
[2020-11-15] MEDS: ROSUVASTATIN 10 MG TABLET 20 MG PO (21:56)
[2020-11-15] MEDS: risperiDONE 1 MG TABLET 4 MG PO (21:57)
[2020-11-15] MEDS: SODIUM CHLORIDE NASAL GEL 14.1 GM 1 APPLIC NASAL (21:58)
[2020-11-15 23:51] LABS: Glucose Point of Care 258 mg/dl (65-105)
[2020-11-16] VITALS (17 sets, daily range): BP systolic 104–154; BP diastolic 54–88; PULSE 56–78; RESP 12–20; TEMP 36.4–37.1; O2SAT 92–100
[2020-11-16 05:41] LABS: INR 0.9; Prothrombin Time 12.5 Seconds (11.1-14.7)
[2020-11-16 05:47] LABS: Alanine Aminotransferase 18 U/L (4-35); Estimated CRCL calculation 78 ml/min; Estimated Glomerular Filt Rate > 60
[2020-11-16] MEDS: LEVOTHYROXINE SODIUM 125 MCG TABLET PO (05:49)
[2020-11-16] MEDS: LEVOTHYROXINE SODIUM 150 MCG TABLET PO (05:49)
[2020-11-16] MEDS: HEPARIN SODIUM 5,000 UNITS/ML VIAL 5000 UNITS SUB-Q ×3 (05:50→22:24)
--- NOTE | 2020-11-16 09:23 | PCDIET ---
Nutrition Follow-Up Complete: Nutrition Diagnosis: Predicted suboptimal oral intake related to COVID as evidenced by minimal oral intake thus far. Nutrition Goal: Patient to meet estimated nutritional needs. Goal met. Patient consuming 75-100% of meals and reports very good appetite. Spoke with patient via phone due to isolation precautions. Patient denies nutrition related concerns or complaints at this time. Last recorded weight is 145.4 kg which is slightly down from last review. -I/O. Bowel Motility: Last documented BM on 11/14/20 x 2. Labs Reviewed: Glu (258) Meds Noted: Zithromax, Rocephin, Catapres, Vitamin B12, Decadron, Pepcid, Novolog, Lantus, Imdur, Synthroid, Lopressor, Macrodantin, Ranexa, Remdesivir, Risperdal, Crestor, Vitamin D Additional Notes: Deep tissue area to sacrum. Lower abdomen and groin macerated. Will continue to monitor with same goal. Nutrition Monitoring and Evaluation: Follow up every 7 days.
[2020-11-16 09:27] LABS: Glucose Point of Care 152 mg/dl (65-105)
[2020-11-16] MEDS: FLUTICASONE PROPIONATE 0.05% NA SPR 16 GM BTL (*BKC) 1 SPRAY NASAL (09:29)
[2020-11-16] MEDS: FAMOTIDINE 20 MG TABLET PO ×2 (09:30→18:00)
[2020-11-16] MEDS: CHOLECALCIFEROL 1,000 UNITS TABLET 2000 UNITS PO (09:30)
[2020-11-16] MEDS: METOPROLOL TARTRATE 25 MG TABLET PO ×2 (09:30→22:25)
[2020-11-16] MEDS: CYANOCOBALAMIN 1,000 MCG TABLET 1000 MCG PO (09:31)
[2020-11-16] MEDS: NITROFURANTOIN MACROCRYSTALS 50 MG CAP PO (09:31)
[2020-11-16] MEDS: ISOSORBIDE MONONITRATE 30 MG TAB.ER.24H PO (09:31)
[2020-11-16] MEDS: cloNIDine HCL 0.2 MG TABLET PO ×2 (09:31→18:00)
[2020-11-16] MEDS: DULoxetine HCL 30 MG CAPSULE.DR 90 MG PO (09:31)
[2020-11-16] MEDS: TOLNAFTATE 1% POWDER 45 GM BTL 1 APPLIC TOPICAL ×2 (09:32→22:30)
[2020-11-16] MEDS: ALBUTEROL SULFATE (*SP) AEROSOL 1 PUFF 2 PUFF INHALATION (10:43)
[2020-11-16] MEDS: REMDESIVIR 100 MG/NS 250 ML 100 MG/250 ML BAG 250 MG IVPB (11:22)
[2020-11-16] MEDS: INSULIN ASPART (*BKC) 100 UNITS/ML SUB-Q ×2 (12:41→17:59)
[2020-11-16 12:42] LABS: Glucose Point of Care 247 mg/dl (65-105)
[2020-11-16] MEDS: lamoTRIgine 100 MG TABLET PO (12:42)
[2020-11-16 17:07] LABS: Glucose Point of Care 302 mg/dl (65-105)
[2020-11-16] MEDS: RANOLAZINE 500 MG TAB.ER.12H 1000 MG PO (18:00)
--- NOTE | 2020-11-16 18:46 | PM.IMPN ---
Progress Note: A&P Assessment and Plan (1) Acute on chronic respiratory failure with hypoxia and hypercapnia: Code(s): J96.21 - Acute and chronic respiratory failure with hypoxia; J96.22 - Acute and chronic respiratory failure with hypercapnia Status: Acute Assessment and Plan: The patient is currently on Airvo Will place patient on BiPAP Try and keep oxygen saturation at 92% order CXr tomorrow (2) Pneumonia due to COVID-19 virus: Code(s): U07.1 - COVID-19; J12.82 - Pneumonia due to coronavirus disease 2019 Status: Acute Assessment and Plan: Started on remdesivir and dexamethasone Rocephin and Zithromax for added antibacterial coverage Await cultures (3) Morbid obesity with BMI of 60.0-69.9, adult: Code(s): E66.01 - Morbid (severe) obesity due to excess calories; Z68.44 - Body mass index [BMI] 60.0-69.9, adult Status: Acute Assessment and Plan: Currently NPO Lifestyle and diet modifications (4) Obstructive sleep apnea: Code(s): G47.33 - Obstructive sleep apnea (adult) (pediatric) Status: Acute Assessment and Plan: Noncompliance with CPAP (5) COPD (chronic obstructive pulmonary disease): Code(s): J44.9 - Chronic obstructive pulmonary disease, unspecified Status: Acute Assessment and Plan: Breathing treatments (6) Venous stasis dermatitis of both lower extremities: Code(s): I87.2 - Venous insufficiency (chronic) (peripheral) Status: Acute Assessment and Plan: Compression stockings (7) Hypertension: Code(s): I10 - Essential (primary) hypertension Status: Acute Assessment and Plan: Continue to monitor (8) GERD (gastroesophageal reflux disease): Code(s): K21.9 - Gastro-esophageal reflux disease without esophagitis Status: Acute Assessment and Plan: PPI as needed (9) Intertriginous candidiasis: Code(s): B37.2 - Candidiasis of skin and nail Status: Acute Assessment and Plan: Local care (10) Type 2 diabetes mellitus: Code(s): E11.9 - Type 2 diabetes mellitus without complications Status: Acute Assessment and Plan: Currently NPO Insulin sliding scale as needed Holding Januvia (11) Acute renal failure: Code(s): N17.9 - Acute kidney failure, unspecified Status: Acute Assessment and Plan: Unknown patient's baseline Will be holding losartan and torsemide Sherman catheter in Daily a strict intake and output Daily BMP Continue to monitor Avoid nephrotoxins 11/15/2020 Respiratory status rapidly improving Continue current medical regimen for coronavirus 19 DC Sherman catheter when able Consult PT OT Encourage mobilization of patient 11/16/20 4L NC doing very well still w sherman catheter anticipate dc cath in am and up to chair and bedside commode dc planning Subjective Date/time seen: 11/16/20 18:46 pt doing ok asks about dc planning and risk of relapse, pt is advised we have had some pts return to hospital after dc requiring ongoing care after initial treatment concluded but this is not very common. Exam Narrative: morbidly obese HEENT: eyes are clear and none icteric, EOMI LUNGS: normal respiratory effort, speaking in full sentences without distress no on NC ABD: soft, NT, ND Lower extremities: no edema chronic venous stasis changes Neuro: CN grossly intact normal speech. no no focal neurological deficits appreciated Objective Data Vital Signs Vital Signs: Vital Signs - 24 hr 11/15/20 20:00 11/15/20 20:52 11/15/20 21:57 Temperature 97.9 F Pulse Rate 67 60 64 Respiratory Rate 20 Blood Pressure 130/70 Pulse Oximetry 96 99 11/15/20 22:00 11/15/20 23:51 11/16/20 00:00 Temperature 98.0 F Pulse Rate 64 115 H 56 L Respiratory Rate 20 Blood Pressure 131/89 Pulse Oximetry 96 96 11/16/20 02:00 11/16/20 02:25 11/16/20 04:00 Temperature 98.0 F Pulse Rate 6
[2020-11-16 20:49] LABS: Glucose Point of Care 338 mg/dl (65-105)
[2020-11-16] MEDS: INSULIN GLARGINE (*BKC) 100 UNITS/ML 10 UNITS SUB-Q (22:23)
[2020-11-16] MEDS: risperiDONE 1 MG TABLET 4 MG PO (22:25)
[2020-11-16] MEDS: lamoTRIgine 100 MG TABLET 200 MG PO (22:26)
[2020-11-16] MEDS: ROSUVASTATIN 10 MG TABLET 20 MG PO (22:27)
[2020-11-16] MEDS: SODIUM CHLORIDE NASAL GEL 14.1 GM 1 APPLIC NASAL (22:28)
[2020-11-17] VITALS (10 sets, daily range): BP systolic 129–165; BP diastolic 80–98; PULSE 57–74; RESP 18–20; TEMP 36.1–37.2; O2SAT 91–96
[2020-11-17 05:16] LABS: Prothrombin Time 13.1 Seconds (11.1-14.7)
[2020-11-17 05:17] LABS: Alanine Aminotransferase 17 U/L (4-35); Estimated CRCL calculation 98 ml/min; Estimated Glomerular Filt Rate > 60
[2020-11-17] MEDS: LEVOTHYROXINE SODIUM 125 MCG TABLET PO (05:49)
[2020-11-17] MEDS: LEVOTHYROXINE SODIUM 150 MCG TABLET PO (05:49)
[2020-11-17] MEDS: HEPARIN SODIUM 5,000 UNITS/ML VIAL 5000 UNITS SUB-Q ×3 (05:49→22:38)
--- NOTE | 2020-11-17 07:02 | PC.NURSE ---
Report given to SARAH Sebastian at 0650. All questions answered and plan of care reviewed. Patient to go to room 310.
[2020-11-17] MEDS: cloNIDine HCL 0.2 MG TABLET PO ×2 (08:59→16:45)
[2020-11-17] MEDS: NITROFURANTOIN MACROCRYSTALS 50 MG CAP PO (08:59)
[2020-11-17] MEDS: CHOLECALCIFEROL 1,000 UNITS TABLET 2000 UNITS PO (08:59)
[2020-11-17] MEDS: CYANOCOBALAMIN 1,000 MCG TABLET 1000 MCG PO (08:59)
[2020-11-17] MEDS: FAMOTIDINE 20 MG TABLET PO ×2 (08:59→16:45)
[2020-11-17] MEDS: DULoxetine HCL 30 MG CAPSULE.DR 90 MG PO (08:59)
[2020-11-17] MEDS: FLUTICASONE PROPIONATE 0.05% NA SPR 16 GM BTL (*BKC) 1 SPRAY NASAL (09:00)
[2020-11-17] MEDS: METOPROLOL TARTRATE 25 MG TABLET PO ×2 (09:00→20:17)
[2020-11-17] MEDS: lamoTRIgine 100 MG TABLET PO (09:00)
[2020-11-17] MEDS: ISOSORBIDE MONONITRATE 30 MG TAB.ER.24H PO (09:00)
[2020-11-17] MEDS: RANOLAZINE 500 MG TAB.ER.12H 1000 MG PO ×2 (09:00→16:46)
[2020-11-17 09:02] LABS: Glucose Point of Care 136 mg/dl (65-105)
--- NOTE | 2020-11-17 09:08 | PM.IMPN ---
Progress Note: A&P Assessment and Plan (1) Acute on chronic respiratory failure with hypoxia and hypercapnia: Code(s): J96.21 - Acute and chronic respiratory failure with hypoxia; J96.22 - Acute and chronic respiratory failure with hypercapnia Status: Acute Assessment and Plan: The patient is currently on Airvo Will place patient on BiPAP Try and keep oxygen saturation at 92% order CXr tomorrow (2) Pneumonia due to COVID-19 virus: Code(s): U07.1 - COVID-19; J12.82 - Pneumonia due to coronavirus disease 2019 Status: Acute Assessment and Plan: Started on remdesivir and dexamethasone Rocephin and Zithromax for added antibacterial coverage Await cultures (3) Morbid obesity with BMI of 60.0-69.9, adult: Code(s): E66.01 - Morbid (severe) obesity due to excess calories; Z68.44 - Body mass index [BMI] 60.0-69.9, adult Status: Acute Assessment and Plan: Currently NPO Lifestyle and diet modifications (4) Obstructive sleep apnea: Code(s): G47.33 - Obstructive sleep apnea (adult) (pediatric) Status: Acute Assessment and Plan: Noncompliance with CPAP (5) COPD (chronic obstructive pulmonary disease): Code(s): J44.9 - Chronic obstructive pulmonary disease, unspecified Status: Acute Assessment and Plan: Breathing treatments (6) Venous stasis dermatitis of both lower extremities: Code(s): I87.2 - Venous insufficiency (chronic) (peripheral) Status: Acute Assessment and Plan: Compression stockings (7) Hypertension: Code(s): I10 - Essential (primary) hypertension Status: Acute Assessment and Plan: Continue to monitor (8) GERD (gastroesophageal reflux disease): Code(s): K21.9 - Gastro-esophageal reflux disease without esophagitis Status: Acute Assessment and Plan: PPI as needed (9) Intertriginous candidiasis: Code(s): B37.2 - Candidiasis of skin and nail Status: Acute Assessment and Plan: Local care (10) Type 2 diabetes mellitus: Code(s): E11.9 - Type 2 diabetes mellitus without complications Status: Acute Assessment and Plan: Currently NPO Insulin sliding scale as needed Holding Januvia (11) Acute renal failure: Code(s): N17.9 - Acute kidney failure, unspecified Status: Acute Assessment and Plan: Unknown patient's baseline Will be holding losartan and torsemide Sherman catheter in Daily a strict intake and output Daily BMP Continue to monitor Avoid nephrotoxins 11/15/2020 Respiratory status rapidly improving Continue current medical regimen for coronavirus 19 DC Sherman catheter when able Consult PT OT Encourage mobilization of patient 11/16/20 4L NC doing very well still w sherman catheter anticipate dc cath in am and up to chair and bedside commode dc planning 11/17/20 cont to improve O2 requirements down to 2.5L cont to wean as able bedside commode dc sherman catheter mobilize pt c/s PT OT c/s CM for SNF placement Subjective Date/time seen: 11/17/20 09:08 Patient continues to improve now down to 2.5 L via nasal cannula. When discussed with patient her overall general improvement and decreasing oxygen requirements patient affect and mood seem to be noncongruent to news of improvement. pt would like to be evaluated for SNF Exam Narrative: morbidly obese HEENT: eyes are clear and none icteric, EOMI LUNGS: normal respiratory effort, speaking in full sentences without distress no on NC ABD: soft, NT, ND Lower extremities: no edema chronic venous stasis changes Neuro: CN grossly intact normal speech. no no focal neurological deficits appreciated Objective Data Vital Signs Vital Signs: Vital Signs - 24 hr 11/16/20 10:00 11/16/20 10:04 11/16/20 10:36 Temperature Pulse Rate 63 Respiratory Rate Blood Pressure Pulse Oximetry 97 93 11/16/20 12:00 11/16/20 14:00
[2020-11-17] MEDS: TOLNAFTATE 1% POWDER 45 GM BTL 1 APPLIC TOPICAL ×2 (09:15→20:33)
[2020-11-17] MEDS: REMDESIVIR 100 MG/NS 250 ML 100 MG/250 ML BAG 250 MG IVPB (11:45)
[2020-11-17] MEDS: INSULIN ASPART (*BKC) 100 UNITS/ML SUB-Q ×2 (11:45→18:39)
[2020-11-17 12:14] LABS: Glucose Point of Care 289 mg/dl (65-105)
--- NOTE | 2020-11-17 16:36 | PCRCNOTE ---
home o2 eval was done in place of 6 min walk. pt is not able to walk, up to edge of bed required 4 L. 2 L at Rest and 4 L with exertion. No home o2 has been set up on pt with DME at this time. Unsure of discharge destination? Spoke to charge nurse, no D/C anticipated at this time. Home O2 Eval at 1615 is as follows: 87% R/A sat , Increased to 2 L 93% Activity to edge of bed, 87% on 2L, increased to 4L, sat 91% recover, resting sat on 2l 94% Resting requires 2 L, Activity 4L.
[2020-11-17 16:57] LABS: Glucose Point of Care 240 mg/dl (65-105)
[2020-11-17] MEDS: lamoTRIgine 100 MG TABLET 200 MG PO (20:17)
[2020-11-17] MEDS: risperiDONE 1 MG TABLET 4 MG PO (20:17)
[2020-11-17] MEDS: ROSUVASTATIN 10 MG TABLET 20 MG PO (20:18)
[2020-11-17 22:47] LABS: Glucose Point of Care 259 mg/dl (65-105)
[2020-11-18] VITALS (11 sets, daily range): BP systolic 111–156; BP diastolic 57–96; PULSE 54–75; RESP 12–20; TEMP 36.5–36.8; O2SAT 93–96
[2020-11-18] MEDS: LEVOTHYROXINE SODIUM 150 MCG TABLET PO (06:30)
[2020-11-18] MEDS: LEVOTHYROXINE SODIUM 125 MCG TABLET PO (06:30)
[2020-11-18] MEDS: HEPARIN SODIUM 5,000 UNITS/ML VIAL 5000 UNITS SUB-Q ×3 (06:30→21:38)
[2020-11-18 07:43] LABS: Glucose Point of Care 134 mg/dl (65-105)
[2020-11-18] MEDS: FLUTICASONE PROPIONATE 0.05% NA SPR 16 GM BTL (*BKC) 1 SPRAY NASAL (08:30)
[2020-11-18] MEDS: AZITHROMYCIN 250 MG TABLET 500 MG PO (08:30)
[2020-11-18] MEDS: METOPROLOL TARTRATE 25 MG TABLET PO ×2 (08:31→21:37)
[2020-11-18] MEDS: CHOLECALCIFEROL 1,000 UNITS TABLET 2000 UNITS PO (08:31)
[2020-11-18] MEDS: cloNIDine HCL 0.2 MG TABLET PO ×2 (08:32→17:37)
[2020-11-18] MEDS: lamoTRIgine 100 MG TABLET PO (08:32)
[2020-11-18] MEDS: CYANOCOBALAMIN 1,000 MCG TABLET 1000 MCG PO (08:32)
[2020-11-18] MEDS: FAMOTIDINE 20 MG TABLET PO ×2 (08:32→17:37)
[2020-11-18] MEDS: DULoxetine HCL 30 MG CAPSULE.DR 90 MG PO (08:32)
[2020-11-18] MEDS: RANOLAZINE 500 MG TAB.ER.12H 1000 MG PO ×2 (08:32→17:36)
[2020-11-18] MEDS: ISOSORBIDE MONONITRATE 30 MG TAB.ER.24H PO (08:32)
[2020-11-18] MEDS: NITROFURANTOIN MACROCRYSTALS 50 MG CAP PO (08:32)
[2020-11-18] MEDS: TOLNAFTATE 1% POWDER 45 GM BTL 1 APPLIC TOPICAL (08:35)
[2020-11-18 10:32] LABS: Basophils Absolute Auto 0.1 K/mm3 (0.0-0.1); Basophils Percent Auto 0.7 % (0.2-1.2); Eosinophils Absolute Auto 0.1 K/mm3 (0-0.3); Eosinophils Percent Auto 1.3 % (0-4.4); Hematocrit 40.3 % (37.0-47.0); Hemoglobin 13.1 g/dL (12.0-15.0); Immature Granulocyte Absolute 0.48 K/mm3 (0.00-0.031); Immature Granulocyte Percent A 6.3 % (0-0.5); Lymphocytes Absolute Auto 0.86 K/mm3 (0.9-3.2); Lymphocytes Percent Auto 11.4 % (18.3-44.2); Mean Corpuscular HGB Conc 32.5 g/dl (32-36); Mean Corpuscular Hemoglobin 31.9 pg (26-34); Mean Corpuscular Volume 98.1 fl (80-100); Mean Platelet Volume 9.2 fl (7.4-10.4); Monocytes Absolute Auto 0.5 K/mm3 (0.1-0.6); Monocytes Percent Auto 7.1 % (2.6-8.5); Neutrophils Absolute Auto 5.5 K/mm3 (1.3-6.7); Neutrophils Percent Auto 73.2 % (45.5-73.1); Platelet Count Result 325 k/mm3 (150-375); Red Blood Count 4.11 M/mm3 (4.2-5.4); Red Cell Distribution Width 14.2 % (11.5-14.5); White Blood Count 7.6 K/mm3 (4.5-10.0)
[2020-11-18 10:49] LABS: D Dimer 1.52 ug/mL (<0.48)
[2020-11-18 10:52] LABS: Alanine Aminotransferase 18 U/L (4-35); Albumin Level 3.3 g/dL (3.5-5.1); Alkaline Phosphatase 57 U/L (38-126); Anion Gap 6 mmol/L (8-16); Aspartate Amino Transferase 26 U/L (14-36); Bilirubin,Total 0.4 mg/dL (0.2-1.3); Blood Urea Nitrogen 16 mg/dL (7-17); CRP 2.6 mg/dL (<1.0); Calcium 8.2 mg/dL (8.4-10.2); Carbon Dioxide 35 mmol/L (22-30); Chloride 96 mmol/L (98-107); Estimated CRCL calculation 100 ml/min; Estimated Glomerular Filt Rate > 60; Glucose 243 mg/dL (65-110); Magnesium 1.8 mg/dL (1.6-2.3); Potassium 4.4 mmol/L (3.4-5.0); Sodium 137 mmol/L (137-145)
[2020-11-18 11:52] LABS: Glucose Point of Care 251 mg/dl (65-105)
[2020-11-18] MEDS: INSULIN ASPART (*BKC) 100 UNITS/ML SUB-Q ×2 (12:43→17:36)
[2020-11-18 17:11] LABS: Glucose Point of Care 282 mg/dl (65-105)
--- NOTE | 2020-11-18 18:30 | PM.IMPN ---
Progress Note: A&P Assessment and Plan (1) Acute on chronic respiratory failure with hypoxia and hypercapnia: Code(s): J96.21 - Acute and chronic respiratory failure with hypoxia; J96.22 - Acute and chronic respiratory failure with hypercapnia Status: Acute Assessment and Plan: The patient is currently on Airvo Will place patient on BiPAP Try and keep oxygen saturation at 92% order CXr tomorrow (2) Pneumonia due to COVID-19 virus: Code(s): U07.1 - COVID-19; J12.82 - Pneumonia due to coronavirus disease 2019 Status: Acute Assessment and Plan: Started on remdesivir and dexamethasone Rocephin and Zithromax for added antibacterial coverage Await cultures (3) Morbid obesity with BMI of 60.0-69.9, adult: Code(s): E66.01 - Morbid (severe) obesity due to excess calories; Z68.44 - Body mass index [BMI] 60.0-69.9, adult Status: Acute Assessment and Plan: Currently NPO Lifestyle and diet modifications (4) Obstructive sleep apnea: Code(s): G47.33 - Obstructive sleep apnea (adult) (pediatric) Status: Acute Assessment and Plan: Noncompliance with CPAP (5) COPD (chronic obstructive pulmonary disease): Code(s): J44.9 - Chronic obstructive pulmonary disease, unspecified Status: Acute Assessment and Plan: Breathing treatments (6) Venous stasis dermatitis of both lower extremities: Code(s): I87.2 - Venous insufficiency (chronic) (peripheral) Status: Acute Assessment and Plan: Compression stockings (7) Hypertension: Code(s): I10 - Essential (primary) hypertension Status: Acute Assessment and Plan: Continue to monitor (8) GERD (gastroesophageal reflux disease): Code(s): K21.9 - Gastro-esophageal reflux disease without esophagitis Status: Acute Assessment and Plan: PPI as needed (9) Intertriginous candidiasis: Code(s): B37.2 - Candidiasis of skin and nail Status: Acute Assessment and Plan: Local care (10) Type 2 diabetes mellitus: Code(s): E11.9 - Type 2 diabetes mellitus without complications Status: Acute Assessment and Plan: Currently NPO Insulin sliding scale as needed Holding Januvia (11) Acute renal failure: Code(s): N17.9 - Acute kidney failure, unspecified Status: Acute Assessment and Plan: Unknown patient's baseline Will be holding losartan and torsemide Sherman catheter in Daily a strict intake and output Daily BMP Continue to monitor Avoid nephrotoxins 11/15/2020 Respiratory status rapidly improving Continue current medical regimen for coronavirus 19 DC Sherman catheter when able Consult PT OT Encourage mobilization of patient 11/16/20 4L NC doing very well still w sherman catheter anticipate dc cath in am and up to chair and bedside commode dc planning 11/17/20 cont to improve O2 requirements down to 2.5L cont to wean as able bedside commode dc sherman catheter mobilize pt c/s PT OT c/s CM for SNF placement 11/18/20 pt now on RA doing well BG not at goal cont to monitor encouraged to work w PT to SNF soon Subjective Date/time seen: 11/18/20 18:30 pt doing very well on RA with her NC next to her ear. discussed w RN will wean pt and monitor overnight Exam Narrative: morbidly obese HEENT: eyes are clear and none icteric, EOMI LUNGS: normal respiratory effort, speaking in full sentences without distress not on NC ABD: soft, NT, ND Lower extremities: no edema chronic venous stasis changes Neuro: CN grossly intact normal speech. no focal neurological deficits appreciated Objective Data Vital Signs Vital Signs: Vital Signs - 24 hr 11/17/20 20:00 11/18/20 00:00 11/18/20 04:00 Temperature 96.9 F L 97.7 F Pulse Rate 67 54 L 54 L Respiratory Rate 18 18 Blood Pressure 141/82 H 152/83 H Pulse Oximetry 91 96 11/18/20 06:00 11/18/20 07:52 11/18/20 08:30 Temperatu
[2020-11-18] MEDS: lamoTRIgine 100 MG TABLET 200 MG PO (21:37)
[2020-11-18] MEDS: risperiDONE 1 MG TABLET 4 MG PO (21:37)
[2020-11-18] MEDS: ROSUVASTATIN 10 MG TABLET 20 MG PO (21:37)
[2020-11-18] MEDS: NIFEdipine 30 MG TAB.ER.24 PO (21:38)
[2020-11-18] MEDS: INSULIN GLARGINE (*BKC) 100 UNITS/ML 12 UNITS SUB-Q (21:44)
[2020-11-19] VITALS (9 sets, daily range): BP systolic 124–166; BP diastolic 67–92; PULSE 59–72; RESP 12–20; TEMP 36.1–36.6; O2SAT 90–97
[2020-11-19 04:10] LABS: Glucose Point of Care 245 mg/dl (65-105)
[2020-11-19] MEDS: LEVOTHYROXINE SODIUM 150 MCG TABLET PO (05:22)
[2020-11-19] MEDS: LEVOTHYROXINE SODIUM 125 MCG TABLET PO (05:22)
[2020-11-19] MEDS: HEPARIN SODIUM 5,000 UNITS/ML VIAL 5000 UNITS SUB-Q ×2 (05:22→13:43)
[2020-11-19 07:59] LABS: Glucose Point of Care 131 mg/dl (65-105)
--- NOTE | 2020-11-19 08:06 | PM.IMPN ---
Progress Note: A&P Assessment and Plan (1) Acute on chronic respiratory failure with hypoxia and hypercapnia: Code(s): J96.21 - Acute and chronic respiratory failure with hypoxia; J96.22 - Acute and chronic respiratory failure with hypercapnia Status: Acute Assessment and Plan: The patient is currently on Airvo Will place patient on BiPAP Try and keep oxygen saturation at 92% order CXr tomorrow (2) Pneumonia due to COVID-19 virus: Code(s): U07.1 - COVID-19; J12.82 - Pneumonia due to coronavirus disease 2019 Status: Acute Assessment and Plan: Started on remdesivir and dexamethasone Rocephin and Zithromax for added antibacterial coverage Await cultures (3) Morbid obesity with BMI of 60.0-69.9, adult: Code(s): E66.01 - Morbid (severe) obesity due to excess calories; Z68.44 - Body mass index [BMI] 60.0-69.9, adult Status: Acute Assessment and Plan: Currently NPO Lifestyle and diet modifications (4) Obstructive sleep apnea: Code(s): G47.33 - Obstructive sleep apnea (adult) (pediatric) Status: Acute Assessment and Plan: Noncompliance with CPAP (5) COPD (chronic obstructive pulmonary disease): Code(s): J44.9 - Chronic obstructive pulmonary disease, unspecified Status: Acute Assessment and Plan: Breathing treatments (6) Venous stasis dermatitis of both lower extremities: Code(s): I87.2 - Venous insufficiency (chronic) (peripheral) Status: Acute Assessment and Plan: Compression stockings (7) Hypertension: Code(s): I10 - Essential (primary) hypertension Status: Acute Assessment and Plan: Continue to monitor (8) GERD (gastroesophageal reflux disease): Code(s): K21.9 - Gastro-esophageal reflux disease without esophagitis Status: Acute Assessment and Plan: PPI as needed (9) Intertriginous candidiasis: Code(s): B37.2 - Candidiasis of skin and nail Status: Acute Assessment and Plan: Local care (10) Type 2 diabetes mellitus: Code(s): E11.9 - Type 2 diabetes mellitus without complications Status: Acute Assessment and Plan: Currently NPO Insulin sliding scale as needed Holding Januvia (11) Acute renal failure: Code(s): N17.9 - Acute kidney failure, unspecified Status: Acute Assessment and Plan: Unknown patient's baseline Will be holding losartan and torsemide Sherman catheter in Daily a strict intake and output Daily BMP Continue to monitor Avoid nephrotoxins 11/15/2020 Respiratory status rapidly improving Continue current medical regimen for coronavirus 19 DC Sherman catheter when able Consult PT OT Encourage mobilization of patient 11/16/20 4L NC doing very well still w sherman catheter anticipate dc cath in am and up to chair and bedside commode dc planning 11/17/20 cont to improve O2 requirements down to 2.5L cont to wean as able bedside commode dc sherman catheter mobilize pt c/s PT OT c/s CM for SNF placement 11/18/20 pt now on RA doing well BG not at goal cont to monitor encouraged to work w PT to SNF soon Subjective Date/time seen: 11/19/20 08:06 Exam Narrative: morbidly obese HEENT: eyes are clear and none icteric, EOMI LUNGS: normal respiratory effort, speaking in full sentences without distress not on NC ABD: soft, NT, ND Lower extremities: no edema chronic venous stasis changes Neuro: CN grossly intact normal speech. no focal neurological deficits appreciated Objective Data Vital Signs Vital Signs: Vital Signs - 24 hr 11/18/20 08:30 11/18/20 08:31 11/18/20 11:59 Temperature 97.8 F Pulse Rate 67 72 62 Respiratory Rate 12 Blood Pressure 156/92 H Pulse Oximetry 93 93 11/18/20 12:00 11/18/20 16:00 11/18/20 16:41 Temperature 98.0 F Pulse Rate 60 71 68 Respiratory Rate 12 Blood Pressure 153/96 H Pulse Oximetry 96 11/18/20 20:00 09
[2020-11-19] MEDS: lamoTRIgine 100 MG TABLET PO (09:11)
[2020-11-19] MEDS: FLUTICASONE PROPIONATE 0.05% NA SPR 16 GM BTL (*BKC) 1 SPRAY NASAL (09:11)
[2020-11-19] MEDS: NIFEdipine 30 MG TAB.ER.24 PO (09:12)
[2020-11-19] MEDS: CYANOCOBALAMIN 1,000 MCG TABLET 1000 MCG PO (09:12)
[2020-11-19] MEDS: CHOLECALCIFEROL 1,000 UNITS TABLET 2000 UNITS PO (09:12)
[2020-11-19] MEDS: ISOSORBIDE MONONITRATE 30 MG TAB.ER.24H PO (09:12)
[2020-11-19] MEDS: RANOLAZINE 500 MG TAB.ER.12H 1000 MG PO ×2 (09:12→16:35)
[2020-11-19] MEDS: AZITHROMYCIN 250 MG TABLET 500 MG PO (09:12)
[2020-11-19] MEDS: METOPROLOL TARTRATE 25 MG TABLET PO ×2 (09:12→20:57)
[2020-11-19] MEDS: DULoxetine HCL 30 MG CAPSULE.DR 90 MG PO (09:12)
[2020-11-19] MEDS: FAMOTIDINE 20 MG TABLET PO ×2 (09:13→16:35)
[2020-11-19] MEDS: cloNIDine HCL 0.2 MG TABLET PO ×2 (09:13→16:34)
[2020-11-19] MEDS: NITROFURANTOIN MACROCRYSTALS 50 MG CAP PO (09:13)
[2020-11-19] MEDS: TOLNAFTATE 1% POWDER 45 GM BTL 1 APPLIC TOPICAL ×2 (09:17→20:58)
[2020-11-19] MEDS: INSULIN GLARGINE (*BKC) 100 UNITS/ML 12 UNITS SUB-Q ×2 (09:19→20:49)
--- NOTE | 2020-11-19 11:02 | PM.DS ---
DS: Admitting Diagnosis Discharge Date 11/19/20 Admitting Diagnosis (1) Acute on chronic respiratory failure with hypoxia and hypercapnia: Code(s): J96.21 - Acute and chronic respiratory failure with hypoxia; J96.22 - Acute and chronic respiratory failure with hypercapnia Status: Acute Assessment and Plan: The patient is currently on Airvo Will place patient on BiPAP Try and keep oxygen saturation at 92% (2) Pneumonia due to COVID-19 virus: Code(s): U07.1 - COVID-19; J12.82 - Pneumonia due to coronavirus disease 2019 Status: Acute Assessment and Plan: Started on remdesivir and dexamethasone Rocephin and Zithromax for added antibacterial coverage Await cultures (3) Morbid obesity with BMI of 60.0-69.9, adult: Code(s): E66.01 - Morbid (severe) obesity due to excess calories; Z68.44 - Body mass index [BMI] 60.0-69.9, adult Status: Acute Assessment and Plan: Currently NPO Lifestyle and diet modifications (4) Obstructive sleep apnea: Code(s): G47.33 - Obstructive sleep apnea (adult) (pediatric) Status: Acute Assessment and Plan: Noncompliance with CPAP (5) COPD (chronic obstructive pulmonary disease): Code(s): J44.9 - Chronic obstructive pulmonary disease, unspecified Status: Acute Assessment and Plan: Breathing treatments (6) Venous stasis dermatitis of both lower extremities: Code(s): I87.2 - Venous insufficiency (chronic) (peripheral) Status: Acute Assessment and Plan: Compression stockings (7) Hypertension: Code(s): I10 - Essential (primary) hypertension Status: Acute Assessment and Plan: Continue to monitor (8) GERD (gastroesophageal reflux disease): Code(s): K21.9 - Gastro-esophageal reflux disease without esophagitis Status: Acute Assessment and Plan: PPI as needed (9) Intertriginous candidiasis: Code(s): B37.2 - Candidiasis of skin and nail Status: Acute Assessment and Plan: Local care (10) Type 2 diabetes mellitus: Code(s): E11.9 - Type 2 diabetes mellitus without complications Status: Acute Assessment and Plan: Currently NPO Insulin sliding scale as needed Holding Januvia (11) Acute renal failure: Code(s): N17.9 - Acute kidney failure, unspecified Status: Acute Assessment and Plan: Unknown patient's baseline Will be holding losartan and torsemide Bel[place]an catheter in Daily a strict intake and output Daily BMP Continue to monitor Avoid nephrotoxins DS: Discharge Diagnosis Discharge Diagnosis (1) Acute renal failure: Code(s): N17.9 - Acute kidney failure, unspecified Status: Acute (2) GERD (gastroesophageal reflux disease): Code(s): K21.9 - Gastro-esophageal reflux disease without esophagitis Status: Acute (3) Obstructive sleep apnea: Code(s): G47.33 - Obstructive sleep apnea (adult) (pediatric) Status: Acute (4) COPD (chronic obstructive pulmonary disease): Code(s): J44.9 - Chronic obstructive pulmonary disease, unspecified Status: Acute (5) Hypertension: Code(s): I10 - Essential (primary) hypertension Status: Acute (6) Venous stasis dermatitis of both lower extremities: Code(s): I87.2 - Venous insufficiency (chronic) (peripheral) Status: Acute (7) Intertriginous candidiasis: Code(s): B37.2 - Candidiasis of skin and nail Status: Acute (8) Pneumonia due to COVID-19 virus: Code(s): U07.1 - COVID-19; J12.82 - Pneumonia due to coronavirus disease 2019 Status: Acute (9) Morbid obesity with BMI of 60.0-69.9, adult: Code(s): E66.01 - Morbid (severe) obesity due to excess calories; Z68.44 - Body mass index [BMI] 60.0-69.9, adult Status: Acute (10) Type 2 diabetes mellitus: Code(s): E11.9 - Type 2 diabetes mellitus without complications Status: Acute (11) Acute on chronic respiratory fa
[2020-11-19 12:17] LABS: Glucose Point of Care 294 mg/dl (65-105)
[2020-11-19] MEDS: INSULIN ASPART (*BKC) 100 UNITS/ML SUB-Q ×2 (12:27→17:40)
[2020-11-19 16:50] LABS: Glucose Point of Care 250 mg/dl (65-105)
[2020-11-19] MEDS: ROSUVASTATIN 10 MG TABLET 20 MG PO (20:57)
[2020-11-19] MEDS: lamoTRIgine 100 MG TABLET 200 MG PO (20:57)
[2020-11-19] MEDS: risperiDONE 1 MG TABLET 4 MG PO (20:57)
[2020-11-19] MEDS: SODIUM CHLORIDE NASAL GEL 14.1 GM 1 APPLIC NASAL (20:58)
[2020-11-19 21:15] LABS: Glucose Point of Care 270 mg/dl (65-105)
[2020-11-20] VITALS: BP 114/70; PULSE 65; RESP 18; TEMP 36.4; O2SAT 94
[2020-11-20 04:00] VITALS: BP 157/86; PULSE 68; RESP 20; TEMP 36.6; O2SAT 91
[2020-11-20] MEDS: LEVOTHYROXINE SODIUM 125 MCG TABLET PO (06:18)
[2020-11-20] MEDS: HEPARIN SODIUM 5,000 UNITS/ML VIAL 5000 UNITS SUB-Q (06:18)
[2020-11-20] MEDS: LEVOTHYROXINE SODIUM 150 MCG TABLET PO (06:18)
--- NOTE | 2020-11-20 07:40 | PC.NURSE ---
patient was supposed to go via EMS. EMS gave new time of 2am last night. Facility stated that they could not take patient until 8am. [facility] called and rescheduled for 8am. Patient notified and agrees with plan/
[2020-11-20 07:52] LABS: Glucose Point of Care 111 mg/dl (65-105)
[2020-11-20] MEDS: lamoTRIgine 100 MG TABLET PO (07:55)
[2020-11-20] MEDS: CHOLECALCIFEROL 1,000 UNITS TABLET 2000 UNITS PO (07:55)
[2020-11-20] MEDS: RANOLAZINE 500 MG TAB.ER.12H 1000 MG PO (07:55)
[2020-11-20] MEDS: DULoxetine HCL 30 MG CAPSULE.DR 90 MG PO (07:55)
[2020-11-20] MEDS: FAMOTIDINE 20 MG TABLET PO (07:55)
[2020-11-20] MEDS: cloNIDine HCL 0.2 MG TABLET PO (07:55)
[2020-11-20] MEDS: NITROFURANTOIN MACROCRYSTALS 50 MG CAP PO (07:55)
[2020-11-20 07:56] VITALS: PULSE 74
[2020-11-20] MEDS: NIFEdipine 30 MG TAB.ER.24 PO (07:56)
[2020-11-20] MEDS: ISOSORBIDE MONONITRATE 30 MG TAB.ER.24H PO (07:56)
[2020-11-20] MEDS: AZITHROMYCIN 250 MG TABLET 500 MG PO (07:56)
[2020-11-20] MEDS: METOPROLOL TARTRATE 25 MG TABLET PO (07:56)
[2020-11-20] MEDS: FLUTICASONE PROPIONATE 0.05% NA SPR 16 GM BTL (*BKC) 1 SPRAY NASAL (07:56)
[2020-11-20] MEDS: CYANOCOBALAMIN 1,000 MCG TABLET 1000 MCG PO (07:56)
[2020-11-20] MEDS: INSULIN GLARGINE (*BKC) 100 UNITS/ML 12 UNITS SUB-Q (08:04)
[2020-11-20] MEDS: TOLNAFTATE 1% POWDER 45 GM BTL 1 APPLIC TOPICAL (08:06)
== END 2020-11-20 08:23 | DRG 177 ==
LOC: ANHIMU 14:30 → ANH3MEDSUR 11-19 11:02 → ANHIMU 11-22 16:16
PROVIDERS: Family Medicine; Admitting Provider Internal Medicine; PCP Family Medicine; Visit Provider Hospitalist
DX: U07.1 COVID-19 (principal); J12.82 Pneumonia due to coronavirus disease 2019; J96.21 Acute and chronic respiratory failure with hypoxia; J96.22 Acute and chronic respiratory failure with hypercapnia; Z68.44 Body mass index [BMI] 60.0-69.9, adult; N17.9 Acute kidney failure, unspecified; I12.9 Hypertensive chronic kidney disease with stage 1 through stage 4 chronic kidney disease, or unspecified chronic kidney disease; E11.22 Type 2 diabetes mellitus with diabetic chronic kidney disease; N18.9 Chronic kidney disease, unspecified; E66.01 Morbid (severe) obesity due to excess calories; G47.33 Obstructive sleep apnea (adult) (pediatric); J44.9 Chronic obstructive pulmonary disease, unspecified; I87.2 Venous insufficiency (chronic) (peripheral); K21.9 Gastro-esophageal reflux disease without esophagitis; B37.2 Candidiasis of skin and nail; E11.9 Type 2 diabetes mellitus without complications; Z91.19 Patient's noncompliance with other medical treatment and regimen; E03.9 Hypothyroidism, unspecified
CPT/HCPCS: 36415; 36600; 71045; 80048; 80053; 82375; 82565; 82805; 82948; 83036; 83050; 83735; 84460; 85025; 85027; 85380; 85610; 86140; 87040; 87086; 87088; 94002; 94003; 94640; 97110; 97161; 97165; 97530; A9270; J0456; J0696; J1100; J1644; J1815

== ENCOUNTER 2021-07-03 13:03 | Outpatient (CLI) | payer MEDICARE, OTHER, SELFPAY ==
--- NOTE | ~2021-07-03 | US_ITS ---
EXAMINATION: US pelvic complete w TV DATE: 07/03/2021 14:16 INDICATION: Postmenopausal bleeding. Comparison:Ultrasound dated 07/12/2020 TECHNIQUE: Multiple transabdominal and endovaginal sonographic images of the pelvis performed. FINDINGS: The uterus measures 10.4 x 2.5 x 3.2 cm. The endometrial complex measures 5 mm. The right ovary measures 2 x 1.9 x 1.5 cm and the left ovary is not visualized. No adnexal masses are seen. There are small follicles in each ovary. Normal doppler signal in both ovaries. There is no free fluid in the pelvis. There are no abnormal masses seen on either side. IMPRESSION: 1. Thickened endomtrial complex. The differential diagnosis includes endometrial hyperplasia, polyp a nd carcinoma. Biopsy is recommended. Reviewed, dictated and finalized at location A. IMPRESSION: 1. Thickened endomtrial complex. The differential diagnosis includes endometria l hyperplasia, polyp and carcinoma. Biopsy is recommended.
== END 2021-07-03 13:04 | disposition home or self-care (01) ==
LOC: CHSIMG 13:05
PROVIDERS: PCP Family Medicine; Visit Provider Student in an Organized Health Care Education/Training Program
DX: N95.0 Postmenopausal bleeding (principal)
CPT/HCPCS: 76830; 76856

== ENCOUNTER 2021-08-16 10:13 | Outpatient (CLI) | payer SELFPAY | END 2021-08-16 10:14 | disposition home or self-care (01) | PROVIDERS: PCP Family Medicine; Visit Provider Family Medicine | DX: E11.9 Type 2 diabetes mellitus without complications (principal) | CPT/HCPCS: 99199 ==

== ENCOUNTER 2021-09-07 06:57 | Inpatient (IN) | payer MEDICARE, OTHER, SELFPAY ==
[2021-09-07] VITALS (7 sets, daily range): BP systolic 118–198; BP diastolic 48–96; PULSE 67–84; RESP 16–20; TEMP 36.6–37.3; O2SAT 90–99; BMI 56.8
--- NOTE | ~2021-09-07 | CT_ITS ---
EXAMINATION: CT brain wo con DATE: 09/07/2021 07:22 INDICATION: Altered mental status. TECHNIQUE: Computed tomography (CT) of the head was performed without intravenous contrast. The mA wa s adjusted according to patient size. Iterative reconstruction technique was employed. The dose-lengt h product was 605.33 mGy-cm. COMPARISON: None FINDINGS: There is no intracranial hemorrhage, acute infarction, or abnormal intracranial mass lesion . The ventricles are normal in size. The orbits are normal. There is mild mucosal thickening in the p aranasal sinuses. The mastoid air cells are normal. IMPRESSION: 1. Normal brain. Reviewed, dictated and finalized at location A. IMPRESSION: 1. Normal brain.
--- NOTE | ~2021-09-07 | XR_ITS ---
EXAMINATION: XR chest 1V portable DATE: 09/07/2021 10:35 INDICATION: Congestive heart failure TECHNIQUE: frontal view of the chest was obtained. COMPARISON: Chest radiograph dated 11/15/2020 FINDINGS: Focal mild airspace opacity at the left lower lung zone along the left heart border. No other airspac e opacities, pleural effusion or pneumothorax. Cardiomegaly. IMPRESSION: 1. Mild airspace opacity left lower lung zone which could represent atelectasis, pneumonia or asymmet yolie mild pulmonary edema. 2. Cardiomegaly. Reviewed, dictated and finalized at location B. IMPRESSION: 1. Mild airspace opacity left lower lung zone which could represent atelectasis , pneumonia or asymmetric mild pulmonary edema. 2. Cardiomegaly.
--- NOTE | ~2021-09-07 | XR_ITS ---
EXAMINATION: XR chest 1V portable Exam Date/Time: 09/09/2021 8:30 CDT HISTORY: hypoxia Comparison: 09/07/2021. RESULT: Lines, tubes, and devices: None. Lungs and pleura: Increasing bibasilar opacities with some evidence of volume loss. Cardiomediastinal silhouette: Stable cardiomediastinal silhouette. Other: No acute osseous or upper abdominal finding. IMPRESSION: Worsening bibasilar opacities, may reflect atelectasis and/or the consolidation of pneumonia, includi ng atypical/viral infection. Reviewed, dictated and finalized at location K. IMPRESSION: Worsening bibasilar opacities, may reflect atelectasis and/or the consolidation of pneumonia, including atypical/viral infection.
--- NOTE | ~2021-09-07 | CT_ITS ---
EXAMINATION: CT abdomen pelvis wo con DATE: 09/09/2021 08:18 INDICATION: Nausea and vomiting TECHNIQUE: Computed tomography (CT) of the abdomen and pelvis was performed without intravenous contr ast. Automated exposure control and iterative reconstruction technique were employed. Exam dose: 153 1.38 mGy-cm total exam DLP. COMPARISON: None. FINDINGS: There is bilateral posterior basilar lower lobe infiltrate and/or atelectasis. Limited evaluation of the lower lung zones due to considerable respiratory motion. Cardiomegaly. No pericardial or pleural effusion. There is streak artifact from the upper extremities which overlie the abdomen, also limiting the exam ination. No apparent hepatic, splenic, pancreatic, adrenal or renal space-occupying mass lesion is evident. No bile duct or pancreatic duct dilatation is detected. No urinary tract calculus or hydroureteronephrosis. Normal caliber of the abdominal aorta. No intraperitoneal or retroperitoneal or pelvic mass lesion or adenopathy or ascites is noted. There is a Beltran catheter within the urinary bladder evacuation of t he bladder, which is not optimally evaluated. The uterus and adnexal areas are unremarkable. There are diverticula of the colon; no CT evidence of diverticulitis. There is a large lower midline ventral abdominal wall hernia containing nonobstructed small bowel. No bowel obstruction or intraperitoneal free air. No suspicious osteolytic or osteoblastic lesions. Degenerative changes of the thoracic and lumbar spine and bilateral hip osteoarthritis. IMPRESSION: Large lower midline ventral abdominal wall hernia containing small bowel, without adolph ulation or obstruction Cardiomegaly Diverticulosis of the colon Posterior basilar bilateral lower lobe infiltrate and/atelectasis Reviewed, dictated and finalized at Location A. Reviewed, dictated and finalized at location A. IMPRESSION: Large lower midline ventral abdominal wall hernia containing small bowel, without strangulation or obstruction Cardiomegaly Diverticulosis of the colon Posterior basilar bilateral lower lobe infiltrate and/atelectasis
--- NOTE | 2021-09-07 07:03 | ECG_ITS ---
Measurements Intervals [place] Rate: 76 P: -6 VT: 196 QRS: -34 QRSD: 93 T: 12 QT: 385 QTc: 435 Interpretive Statements SINUS RHYTHM LOW QRS VOLTAGE IN PRECORDIAL LEADS ANTEROSEPTAL INFARCT, AGE INDETERMINATE INFERIOR INFARCT, AGE INDETERMINATE ABNORMAL ECG Electronically Signed On 09-07-2021 18:44:00 CDT by Channing Jonas D.O.
--- NOTE | 2021-09-07 07:04 | ED.GENADULT ---
HPI - General Adult General Chief complaint: Weakness Stated complaint: AMBULANCE History of Present Illness HPI narrative: Judy presented to the ED via EMS for AMS and weakness. for the last few days she has had progressive weakness and confusion and has not taken her meds. She reports chills and mild dysuria. She kristina CP, SOB, N/V and diarrhea. Related Data Home Medications Medication Instructions Recorded Confirmed albuterol sulfate 90 mcg/actuation 2 puff inhalation Q4H PRN 07/26/20 09/07/21 aerosol inhaler Shortness Of Breath cholecalciferol (vitamin D3) 25 50 mcg PO DAILY 07/26/20 09/07/21 mcg (1,000 unit) capsule clonidine HCl 0.2 mg tablet 0.2 mg PO BID 07/26/20 09/07/21 docusate sodium 100 mg capsule 100 mg PO TID 07/26/20 09/07/21 (Colace) famotidine 20 mg tablet 20 mg PO BID 07/26/20 09/07/21 fluticasone propionate 50 1 spray intranasal DAILY 07/26/20 09/07/21 mcg/actuation nasal spray,suspension losartan 100 mg tablet 100 mg PO DAILY 07/26/20 09/07/21 nitrofurantoin macrocrystal 50 mg 50 mg PO DAILY 07/26/20 09/07/21 capsule potassium chloride 20 mEq 40 meq PO BID 07/26/20 09/07/21 tablet,extended release ranolazine 500 mg tablet,extended 1,000 mg PO BID 07/26/20 09/07/21 release,12 hr risperidone 4 mg tablet 4 mg PO HS 07/26/20 09/07/21 trazodone 100 mg tablet 200 mg PO HS 07/26/20 09/07/21 cyanocobalamin (vitamin B-12) 1,000 mcg PO DAILY 11/12/20 09/07/21 1,000 mcg capsule duloxetine 30 mg capsule,delayed 90 mg PO DAILY 11/12/20 09/07/21 release fluocinolone acetonide oil 0.01 % 3 - 5 drp EACH EAR BID PRN Itching 11/12/20 09/07/21 ear drops isosorbide mononitrate 30 mg 30 mg PO DAILY 11/12/20 09/07/21 tablet,extended release 24 hr lamotrigine 100 mg tablet 100 mg PO QAM 11/12/20 09/07/21 lamotrigine 100 mg tablet 200 mg PO HS 11/12/20 09/07/21 metoprolol tartrate 25 mg tablet 25 mg PO Q12H 11/12/20 09/07/21 nitroglycerin 0.4 mg sublingual 0.4 mg sublingual Q5M PRN Chest 11/12/20 09/07/21 tablet Pain rosuvastatin 20 mg tablet 20 mg PO HS 11/12/20 09/07/21 sitagliptin 100 mg tablet (Januvia) 50 mg PO DAILY 11/12/20 09/07/21 torsemide 20 mg tablet 40 mg PO DAILY 11/12/20 09/07/21 Alkalol Nasal Wash See Rx Instructions .Route .COMPLEX 11/13/20 09/07/21 aspirin 81 mg tablet 81 mg PO DAILY 09/07/21 09/07/21 fluticasone 250 mcg-salmeterol 50 1 inh inhalation Q12H 09/07/21 09/07/21 mcg/dose blistr powdr for inhalation (Advair Diskus) levothyroxine 175 mcg tablet 175 mcg PO DAILY 09/07/21 09/07/21 loratadine 10 mg tablet (Claritin) 10 mg PO DAILY PRN Allergy Symptoms 09/07/21 09/07/21 Allergies Allergy/AdvReac Type Severity Reaction Status Date / Time dapagliflozin [From [facility]] Allergy Intermediate Unknown Verified 09/07/21 07:12 Penicillins Allergy Unknown Unknown Verified 09/07/21 07:12 Sulfa (Sulfonamide Allergy Unknown Unknown Verified 09/07/21 07:12 Antibiotics) Review of Systems Constitutional: Constitutional: Reports no additional constitutional complaints Eyes: Eyes: Reports no additional eye complaints ENT: Reports system reviewed and no additional complaints, except as documented Cardiovascular: Cardiovascular: Reports no additional cardiovascular complaints Respiratory: Respiratory: Reports no additional respiratory complaints Gastrointestinal: Gastrointestinal: Reports no additional gastrointestinal complaints Genitourinary: Genitourinary: Reports no additional female genitourinary complaints Musculoskeletal: Musculoskeletal: Reports no additional musculoskeletal complaints Integumentary/Breasts: Skin/Breast: Reports system reviewed and no additional complaints, except as docu Neurologic: Reports system reviewed and no additional complaints, except as documented Psychiatric: Psychiatric: Reports no additional psychiatric complaints Endocrine: Endocrine: Reports no additional endocrine complaints Hematologic/Lymphatic: Hematologic/Lymphatic: R
[2021-09-07 07:31] LABS: Basophils Absolute Auto 0.04 K/mm3 (0.00-0.10); Basophils Percent Auto 0.4 % (0.0-1.0); Eosinophils Absolute Auto 0.24 K/mm3 (0.02-0.50); Eosinophils Percent Auto 2.3 % (1.0-6.0); Hematocrit 45.9 % (35.0-49.0); Hemoglobin 14.8 g/dL (12.0-15.0); Immature Granulocyte Absolute 0.06 K/mm3 (0.00-0.00); Immature Granulocyte Percent A 0.6 % (0.0-0.0); Lymphocytes Absolute Auto 0.82 K/mm3 (1.10-4.50); Mean Corpuscular HGB Conc 32.2 g/dL (32.0-36.0); Mean Corpuscular Hemoglobin 30.5 pg (27.0-31.0); Mean Corpuscular Volume 94.6 fL (78.0-102.0); Mean Platelet Volume 9.5 fl (9.2-11.8); Monocytes Absolute Auto 1.15 K/mm3 (0.10-0.90); Monocytes Percent Auto 11.2 % (2.0-11.0); Neutrophils Percent Auto 77.5 % (50.0-70.0); Platelet Count Result 238 K/mm3 (150-420); Red Blood Count 4.85 M/mm3 (4.20-5.40); Red Cell Distribution Width 14.2 % (11.6-14.4); White Blood Count 10.3 K/mm3 (4.8-10.8)
[2021-09-07 07:50] LABS: Lactic Acid Reflex 1.1 mmol/L (0.4-2.0)
--- NOTE | 2021-09-07 08:00 | PC.NURSE ---
pt repositioned. moist bright pink areas noted under left breast, right groin, sup. pubic region, and alicia area. all sites cleaned with patient bath wipes.
[2021-09-07 08:02] LABS: Add Urine Microscopic? YES; Bilirubin Urine 1+ (Negative); Blood Urine 1+ (Negative); Color Urine Light Yellow (Yellow); Glucose Urine UA Negative (Negative); Ketones Urine 1+ (Negative); Leukocyte Esterase Ur 3+ (Negative); Nitrate Urine Positive (Negative); Protein Urine Trace (Negative); Urobilinogen Urine 0.2 mg/dL (0.2-1.0)
[2021-09-07 08:02] LABS: Alanine Aminotransferase 14 U/L (14-59); Albumin Level 3.6 g/dL (3.4-5.0); Alkaline Phosphatase 73 U/L (46-116); Ammonia 12 umol/L (11-32); Anion Gap 7 mmol/L (8-16); Aspartate Amino Transferase 11 U/L (15-37); Bilirubin,Total 0.6 mg/dL (0.00-1.00); Blood Urea Nitrogen 18 mg/dL (7-18); Carbon Dioxide 30 mmol/L (21-32); Chloride 100 mmol/L (98-108); Creatine Kinase 375 U/L (26-192); Estimated Glomerular Filt Rate 51; Glucose 125 mg/dL (70-99); Lipase 36 U/L (73-393); Magnesium 1.9 mg/dL (1.8-2.4); NT Pro B Type Natriuretic Pept 250 pg/mL (0-125); Osmolality Calculated 286 mOsm/kg (285-295); Potassium 4.3 mmol/L (3.5-5.1); Sodium 137 mmol/L (136-145)
[2021-09-07 08:03] LABS: Ethanol < 3 mg/dL (0-6); Troponin I 8.4 ng/L (0.00-60.4)
[2021-09-07 08:03] LABS: Thyroid Stimulating Hormone 20.97 uIU/mL (0.36-3.74)
[2021-09-07] MEDS: MICONAZOLE NITRATE 2% CREAM 30 GM TUBE 1 APPLIC TOPICAL ×2 (08:06→20:58)
[2021-09-07 08:07] LABS: Appearance Urine Cloudy (Clear); Squamous Epithelial Cell Urine Rare /hpf (Few); WBC Urine >75 /hpf (0-3)
[2021-09-07 08:08] LABS: Bacteria Urine 2+ /hpf
[2021-09-07 08:11] LABS: Amphetamine Screen Urine Negative (Negative); Barbiturate Screen Urine Negative (Negative); Benzodiazepines Screen Urine Negative (Negative); Cannabinoid Screen Urine Negative (Negative); Cocaine Screen Urine Negative (Negative); Methadone Screen Urine Negative (Negative); Opiate Screen Urine Negative (Negative); Phencyclidine Screen Urine Negative (Negative)
[2021-09-07 08:25] LABS: SARS-CoV-2 Ag Negative (Negative)
[2021-09-07] MEDS: LEVOTHYROXINE SODIUM 100 MCG, LEVOTHYROXINE SODIUM 50 MCG 150 MCG PO (08:36)
--- NOTE | 2021-09-07 09:10 | PC.NURSE ---
Patient arrived on unit via stretcher and was admitted to room 209. Transfer required 3 assist and maxi slide. Patient bed ridden with use of BSC for bowel movements. Urinary catheter in place and draining. Patient A/O x person, place and time, but occasionally says things that indicate confusion. Orientated to room and call light.
[2021-09-07] MEDS: ENOXAPARIN 40 MG/0.4 ML SYRINGE SUB-Q (10:39)
[2021-09-07] MEDS: SODIUM CHLORIDE 0.9% IV 1,000 ML 75 ML IV CONT ×2 (10:39→23:57)
[2021-09-07] MEDS: lamoTRIgine 100 MG TABLET PO (10:39)
[2021-09-07] MEDS: PANTOPRAZOLE SOD SESQUIHYDRATE 20 MG TAB PO (10:39)
[2021-09-07 11:41] LABS: Glucose Point of Care 111 mg/dl (65-105)
--- NOTE | 2021-09-07 13:26 | PC.NURSE ---
Patient expressed to ad writer that she is anxious that hospital staff may be plotting to sent her to a psychiatric facility. Patient stated that she is hearing someone tell her this and that she is hearing someone tell her that she has done something wrong. Patient questioned ad writer about forms patient has been signing, stating that she thinks these forms are to get her into a psychiatric hospital. Market Development Executive assured patient that staff was not planning any thing like that and that patient is hospitalized for the purpose of UTI with confusion, and to ensure patient is taking her medications as prescribed. Patient also expressed that she is seeing someone standing outside of her window. Market Development Executive opened the window blind and reinforced that she is on the second floor, therefore, no one can be standing outside her window. Patient seemed reassured, however patient is visibly shaking.
--- NOTE | 2021-09-07 13:33 | PC.NURSE ---
Hospitalist contacted regarding need for anxiety medication, patient becoming paranoid and anxious
[2021-09-07] MEDS: LORazepam INJ (*CRX) 2 MG/ML VIAL 0.5 MG IV PUSH (16:38)
[2021-09-07] MEDS: DOCUSATE SODIUM 100 MG CAPSULE PO ×2 (16:39→16:42)
[2021-09-07] MEDS: FAMOTIDINE 20 MG TABLET PO (16:39)
[2021-09-07] MEDS: POTASSIUM CHLORIDE 20 MEQ TABLET 40 MEQ PO (16:39)
[2021-09-07 16:50] LABS: Glucose Point of Care 114 mg/dl (65-105)
--- NOTE | 2021-09-07 17:12 | PC.NURSE ---
Patient anxious and shaking. BP was elevated at 198/96. Lithographic Press Operator administered ativan IV and re checked BP. BP currently 146/88
[2021-09-07] MEDS: risperiDONE 1 MG TABLET 4 MG PO (20:53)
[2021-09-07] MEDS: ROSUVASTATIN 10 MG TABLET 20 MG PO (20:54)
[2021-09-07] MEDS: traZODone HCL 50 MG TABLET 200 MG PO (20:55)
[2021-09-07] MEDS: lamoTRIgine 100 MG TABLET 200 MG PO (20:56)
[2021-09-07 20:57] LABS: Glucose Point of Care 124 mg/dl (65-105)
[2021-09-07] MEDS: RANOLAZINE 500 MG TAB.ER.12H 1000 MG PO (20:57)
[2021-09-07] MEDS: cloNIDine HCL 0.2 MG TABLET PO (20:57)
--- NOTE | 2021-09-07 21:33 | PC.NURSE ---
Pt performed oral care independently, but was brought supplies to bed. Call light within reach.
[2021-09-08 05:08] LABS: Hematocrit 41.8 % (35.0-49.0); Hemoglobin 13.5 g/dL (12.0-15.0); Mean Corpuscular HGB Conc 32.3 g/dL (32.0-36.0); Mean Corpuscular Hemoglobin 30.8 pg (27.0-31.0); Mean Corpuscular Volume 95.4 fL (78.0-102.0); Mean Platelet Volume 9.3 fl (9.2-11.8); Platelet Count Result 212 K/mm3 (150-420); Red Blood Count 4.38 M/mm3 (4.20-5.40); Red Cell Distribution Width 14.3 % (11.6-14.4); White Blood Count 7.6 K/mm3 (4.8-10.8)
[2021-09-08 05:25] LABS: Alanine Aminotransferase 13 U/L (14-59); Albumin Level 2.9 g/dL (3.4-5.0); Alkaline Phosphatase 67 U/L (46-116); Anion Gap 6 mmol/L (8-16); Aspartate Amino Transferase 14 U/L (15-37); Bilirubin,Total 0.4 mg/dL (0.00-1.00); Blood Urea Nitrogen 9 mg/dL (7-18); Calcium 8.3 mg/dL (8.5-10.1); Carbon Dioxide 32 mmol/L (21-32); Chloride 101 mmol/L (98-108); Estimated CRCL calculation 75 ml/min; Estimated Glomerular Filt Rate > 60; Glucose 140 mg/dL (70-99); Magnesium 1.7 mg/dL (1.8-2.4); Osmolality Calculated 288 mOsm/kg (285-295); Potassium 3.8 mmol/L (3.5-5.1); Sodium 139 mmol/L (136-145)
[2021-09-08] MEDS: LEVOTHYROXINE SODIUM 100 MCG, LEVOTHYROXINE SODIUM 75 MCG 175 MCG PO (05:35)
[2021-09-08 07:49] LABS: Glucose Point of Care 127 mg/dl (65-105)
[2021-09-08 08:00] VITALS: BP 161/93; PULSE 83; RESP 16; TEMP 36.9; O2SAT 93
--- NOTE | 2021-09-08 08:47 | PM.IMHP ---
H&P: HPI History of Present Illness Date/Time: 09/08/21 08:47 Chief Complaint: Weakness Narrative: This is a 61-year-old female who presented to our emergency department via EMS due to weakness. Patient has a past medical history of GERD, anxiety, arthritis, asthma, COPD, diabetes, heart disease, hypertension, thyroid disorder. According to the patient for the last couple of days she has been hallucinating. She also notes that she had not been taking her medication properly due to confusion. Patient notes that she was getting her medication mixed up. She notes that occasionally her helps her with the medication but she did not receive help at this time. Patient notes that her situation has improved since her admission she does continue to have hallucination. Patient is alert and orientated x3 today. Her motility has decreased at home she could at least pivot. Today she requires max assistance to pivot. During arrival patient had poor hygiene. Vital signs 161/93, 83, 16, 98.4, 93% on room air, WBC 7.6, hemoglobin 13.5, hematocrit 41.8, platelets 212, sodium 139, potassium 3.8, BUN 9, creatinine 0.88, glucose 140, calcium 8.3, lactic acid 1.1, magnesium 1.9, total bilirubin 0.6, AST 11, ALT 14, ammonia 12, troponin 8.4, BUN to 50, TSH 20.97 UA with nitrate leukocyte Estrace and protein toxicology negative COVID-negative CT of the head unremarkable EKG sinus rhythm with a heart rate of 76. Patient will be admitted for UTI, encephalopathy and acute kidney injury. Patient will more than likely transition to swing bed if she qualifies. The patient denies SOB, CP, palpitation, extremity numbness, lightheadedness, dizziness, constipation, diarrhea, chills, or fever. Review of Systems Review of Systems: A 14 organ system Review of Systems was performed and pertinent positives included in the HPI, otherwise remaining ROS is negative. [facility] Past Medical History Medical History Acid reflux Anxiety Arthritis Asthma COPD (chronic obstructive pulmonary disease) Deviated septum Diabetes Heart disease Hypertension Thyroid disorder Surgical History Surgical History History of dilation and curettage History of sinus surgery History of tonsillectomy and adenoidectomy Family History Family History Father Hypertension Heart disease Skin cancer Mother Asthma Diabetes mellitus Hypertension Depression Heart disease Thyroid disorder Sibling Asthma Diabetes mellitus Hypertension Depression Heart disease Son Depression Other Family history of arthritis Family history of chronic obstructive pulmonary disease Family history of mental disorder Social History Social History Smoking packs per day: 1 Smoking cigarettes per day: 20.0 Years smoked: 6 Smoking pack-years: 6.00 Smoking status: Never smoker Tobacco type: cigarettes Second hand tobacco smoke exposure: No Alcohol intake: former Drinks per week: 2 Substance use: never Substance use type: does not use Gender identity (if verbalized by the patient): Female Spiritual care concerns: Yes Agree to blood products: Yes Meds Home Medications and Allergies Home Medications Medication Instructions Recorded Confirmed Type albuterol sulfate 90 mcg/actuation 2 puff inhalation Q4H PRN 07/26/20 09/07/21 History aerosol inhaler Shortness Of Breath cholecalciferol (vitamin D3) 25 50 mcg PO DAILY 07/26/20 09/07/21 History mcg (1,000 unit) capsule clonidine HCl 0.2 mg tablet 0.2 mg PO BID 07/26/20 09/07/21 History docusate sodium 100 mg capsule 100 mg PO TID 07/26/20 09/07/21 History (Colace) famotidine 20 mg tablet 20 mg PO BID 07/26/20 09/07/21 History fluticasone propionate 50 1 spray intranasal DAILY 07/26/2008/24
[2021-09-08] MEDS: MICONAZOLE NITRATE 2% CREAM 30 GM TUBE 1 APPLIC TOPICAL ×2 (09:00→21:18)
[2021-09-08] MEDS: ENOXAPARIN 40 MG/0.4 ML SYRINGE SUB-Q (09:17)
[2021-09-08] MEDS: FAMOTIDINE 20 MG TABLET PO (09:17)
[2021-09-08] MEDS: POTASSIUM CHLORIDE 20 MEQ TABLET 40 MEQ PO (09:18)
[2021-09-08] MEDS: DULoxetine HCL 30 MG CAPSULE.DR 90 MG PO (09:18)
[2021-09-08] MEDS: CHOLECALCIFEROL 1,000 UNITS TABLET 2000 UNITS PO (09:19)
[2021-09-08] MEDS: TORSEMIDE 20 MG TABLET 40 MG PO (09:19)
[2021-09-08] MEDS: CYANOCOBALAMIN 1,000 MCG TABLET 1000 MCG PO (09:19)
[2021-09-08] MEDS: LOSARTAN POTASSIUM 50 MG TABLET 100 MG PO (09:19)
[2021-09-08] MEDS: ISOSORBIDE MONONITRATE 30 MG TAB.ER.24H PO (09:20)
[2021-09-08] MEDS: DOCUSATE SODIUM 100 MG CAPSULE PO (09:20)
[2021-09-08] MEDS: lamoTRIgine 100 MG TABLET PO (09:20)
[2021-09-08] MEDS: FLUTICASONE PROPIONATE 0.05% NA SPR 16 GM BTL (*BKC) 1 SPRAY NASAL (09:20)
[2021-09-08] MEDS: PANTOPRAZOLE SOD SESQUIHYDRATE 20 MG TAB PO (09:21)
[2021-09-08] MEDS: cloNIDine HCL 0.2 MG TABLET PO ×2 (09:21→21:17)
[2021-09-08] MEDS: RANOLAZINE 500 MG TAB.ER.12H 1000 MG PO ×2 (09:21→21:15)
[2021-09-08] MEDS: ASPIRIN 81 MG ENTERIC TABLET PO (09:21)
[2021-09-08 11:55] LABS: Glucose Point of Care 166 mg/dl (65-105)
[2021-09-08] MEDS: ONDANSETRON INJ 4 MG/2 ML VIAL IV PUSH ×2 (16:40→23:27)
--- NOTE | 2021-09-08 16:40 | PC.NURSE ---
Patient reporting nausea/vomiting. Patient had several episodes of emesis, resulting in 300ml of measured emesis and 3 unmeasured emesis. GOLF RANGE ATTENDANT Celestine contacted, N.O. for zofran received. This nurse assisted patient to get cleaned up, clean gown applied.
[2021-09-08 16:45] VITALS: BP 167/82; PULSE 89; RESP 18; TEMP 36.8; O2SAT 90
[2021-09-08 17:57] LABS: Glucose Point of Care 114 mg/dl (65-105)
--- NOTE | 2021-09-08 18:16 | PC.NURSE ---
Chen Flowers NP, notified that patient continues to have nausea and emisis. New orders received.
[2021-09-08] MEDS: PROCHLORPERAZINE EDISYLATE 10 MG/2 ML VIAL IV PUSH (18:55)
--- NOTE | 2021-09-08 18:55 | PC.NURSE ---
Patient has several more large emesis. Brown in color, liquid. GIAN Sprague contacted, N.O received for Compazine. Given per order. Patient assisted with bed bath and clean gown applied. Clean linens applied to bed. Call light provided. Patient sitting up in bed, hob elevated.
--- NOTE | 2021-09-08 20:03 | PC.NURSE ---
Upon palpation the upper left quadrant of the abdomen the pt stated a tenderness. This subsided when palpation stopped, and pt did not complain of pain then. Pt has n/v and has an emesis bag within reach along w/her call light.
[2021-09-08] MEDS: lamoTRIgine 100 MG TABLET 200 MG PO (21:13)
[2021-09-08] MEDS: ROSUVASTATIN 10 MG TABLET 20 MG PO (21:13)
[2021-09-08 21:15] LABS: Glucose Point of Care 146 mg/dl (65-105)
[2021-09-08] MEDS: traZODone HCL 50 MG TABLET 200 MG PO (21:15)
[2021-09-08] MEDS: risperiDONE 1 MG TABLET 4 MG PO (21:17)
--- NOTE | 2021-09-08 21:27 | PC.NURSE ---
Pt stated the last time she vomited was 20:15. Med pass took place and this RN instructed the pt to sip the water to not disturb the pt's nausea any further than necessary w/PO meds. Pt verbalized understanding, but then proceeded to drink half of the water jug. Pt then vomited after med pass; it is unsure what medications were absorbed at this time.
--- NOTE | 2021-09-08 22:55 | PC.NURSE ---
Pt performed oral hygiene at bedside w/supplies brought to her. Pt brushed teeth independently.
[2021-09-08 23:09] VITALS: BP 140/83; PULSE 103; RESP 20; TEMP 37.2; O2SAT 91
--- NOTE | 2021-09-08 23:10 | PC.NURSE ---
Chen Flowers, Hospitalist, notified that patient continues with nausea and emisis. Patient's O2 sats 82% on room air. New orders received of CT of pelvis and abd and O2. Pt made NPO at this time.
[2021-09-08] MEDS: LORazepam INJ (*CRX) 2 MG/ML VIAL 0.5 MG IV PUSH (23:27)
[2021-09-08 23:55] VITALS: BP 142/74; PULSE 96; RESP 19; TEMP 37.2; O2SAT 92
[2021-09-08 23:56] VITALS: RESP 19; O2SAT 92
[2021-09-09 01:15] VITALS: O2SAT 92
--- NOTE | 2021-09-09 01:23 | PC.NURSE ---
Judy states that she is still feeling nauseous, and she is vomiting. Upon inspection of the emesis bag, contents included expectorant and tissues. Belching is present. This RN educated the pt on how to use an incentive spirometer and the benefits that would apply to her as the pt. Pt verbalized understanding and demonstrated use of device. Call light within reach, side railsx3, and room light lit on lowest setting per pt request.
--- NOTE | 2021-09-09 03:10 | PC.NURSE ---
Pt states that her nausea is starting to subside, but is still somewhat present. Pt has not vomited in the last hour and only expectorates at times. Call light within reach; side railsx3.
[2021-09-09 05:05] LABS: Hematocrit 45.4 % (35.0-49.0); Hemoglobin 14.4 g/dL (12.0-15.0); Mean Corpuscular HGB Conc 31.7 g/dL (32.0-36.0); Mean Corpuscular Hemoglobin 30.5 pg (27.0-31.0); Mean Corpuscular Volume 96.2 fL (78.0-102.0); Mean Platelet Volume 9.5 fl (9.2-11.8); Platelet Count Result 271 K/mm3 (150-420); Red Blood Count 4.72 M/mm3 (4.20-5.40); Red Cell Distribution Width 14.2 % (11.6-14.4); White Blood Count 9.7 K/mm3 (4.8-10.8)
[2021-09-09 05:20] LABS: Alanine Aminotransferase 11 U/L (14-59); Albumin Level 3.1 g/dL (3.4-5.0); Alkaline Phosphatase 65 U/L (46-116); Anion Gap 5 mmol/L (8-16); Aspartate Amino Transferase 11 U/L (15-37); Bilirubin,Total 0.4 mg/dL (0.00-1.00); Blood Urea Nitrogen 10 mg/dL (7-18); Calcium 8.2 mg/dL (8.5-10.1); Carbon Dioxide 35 mmol/L (21-32); Chloride 99 mmol/L (98-108); Estimated CRCL calculation 61 ml/min; Estimated Glomerular Filt Rate 50; Glucose 146 mg/dL (70-99); Magnesium 1.9 mg/dL (1.8-2.4); Osmolality Calculated 290 mOsm/kg (285-295); Potassium 4.1 mmol/L (3.5-5.1); Sodium 139 mmol/L (136-145); Total Protein 6.3 g/dL (6.4-8.2)
[2021-09-09 05:21] LABS: Hemoglobin A1C 6.1 % (<5.7)
[2021-09-09 06:02] VITALS: O2SAT 92
[2021-09-09 07:00] VITALS: O2SAT 93
[2021-09-09 07:39] LABS: Glucose Point of Care 132 mg/dl (65-105)
[2021-09-09 08:00] VITALS: BP 107/56; PULSE 93; RESP 18; RESP 20; TEMP 36.9; O2SAT 93
--- NOTE | 2021-09-09 09:03 | WPDPN ---
Progress Note: A&P Assessment and Plan (1) Acute alteration in mental status: Code(s): R41.82 - Altered mental status, unspecified Status: Acute Assessment and Plan: Secondary to urinary tract infection versus pneumonia Blood culture pending Treat underlying cause Continue Levaquin Lactic acid, ammonia WBC and CT of the head within normal limits (2) Hypothyroidism: Code(s): E03.9 - Hypothyroidism, unspecified Status: Acute Assessment and Plan: TSH 20.97 Patient received 150 MCG's in ED Continue 175 mg daily (3) UTI (urinary tract infection): Code(s): N39.0 - Urinary tract infection, site not specified Status: Acute Assessment and Plan: Chronic Blood culture pending Lactic acid, ammonia WBC and CT of the head within normal limits (4) Acute renal failure: Code(s): N17.9 - Acute kidney failure, unspecified Status: Acute Assessment and Plan: Resolved Possibly secondary to urinary tract infection Creatinine1.09>0.88>0.99 (5) GERD (gastroesophageal reflux disease): Code(s): K21.9 - Gastro-esophageal reflux disease without esophagitis Status: Acute Assessment and Plan: Continue pantoprazole (6) Obstructive sleep apnea: Code(s): G47.33 - Obstructive sleep apnea (adult) (pediatric) Status: Acute Assessment and Plan: Use of supplementary oxygen at night Patient does not have CPAP (7) COPD (chronic obstructive pulmonary disease): Code(s): J44.9 - Chronic obstructive pulmonary disease, unspecified Status: Acute Assessment and Plan: Stable Continue albuterol (8) Hypertension: Code(s): I10 - Essential (primary) hypertension Status: Acute Assessment and Plan: Better controlled Continue clonidine isosorbide losartan losartan and metoprolol Vital signs as ordered Will adjust medication as needed (9) Type 2 diabetes mellitus: Code(s): E11.9 - Type 2 diabetes mellitus without complications Status: Acute Assessment and Plan: Less than 300 Continue with Accu-Chek sliding scale hypoglycemic protocol Will adjust medication as needed Continue diabetic diet A1c 6.1 (10) PNA (pneumonia): Code(s): J18.9 - Pneumonia, unspecified organism Status: Acute Assessment and Plan: Continue Levaquin Patient with excessive nausea and vomiting Will add vancomycin for possible aspirating pneumonia WBCs within normal limits Subjective Date/time seen: 09/19/21 09:03 Interval history: Patient is more alert today. We will resume her diet. The patient denies SOB, CP, palpitation, extremity numbness, lightheadedness, dizziness, constipation, diarrhea, chills, or fever. Received report the patient had several episodes of nausea and vomiting 2 days prior. Chest x-ray repeated which shows worsening pneumonia possibly aspirating pneumonia we will start vancomycin. Review of Systems Review of Systems: A 14 organ system Review of Systems was performed and pertinent positives included in the HPI, otherwise remaining ROS is negative. Exam Narrative: GENERAL: Morbidly obese poor hygiene in no apparent distress. HEAD: normocephalic, atraumatic. EYES: PERRL. Sclera clear/white. Vision is grossly intact. EARS: External ears normal, auditory canals clear and without drainage, TMs normal without perforation. Hearing grossly intact. NOSE: External nose normal with no obvious nasal discharge, nares without redness, no rhinorrhea. THROAT: Mucous membranes moist, posterior pharynx clear. NECK: Neck supple, non-tender without lymphadenopathy, masses or thyromegaly. CARDIOVASCULAR: Regular rate and rhythm without murmurs, gallops, or rubs. RESPIRATORY: Clear to auscultation. Breath sounds equal bilaterally. No wheezes, rales, or rhonchi. GASTROINTESTINAL: Abdomen soft, non-tender, nondistended. Bowel sounds are active. No hepato-s
--- NOTE | 2021-09-09 09:03 | P.PN_ITS ---
Progress Note: A&P Assessment and Plan (1) Acute alteration in mental status: Code(s): R41.82 - Altered mental status, unspecified Status: Acute Assessment and Plan: * Secondary to urinary tract infection versus pneumonia * Blood culture pending * Treat underlying cause * Continue Levaquin * Lactic acid, ammonia WBC and CT of the head within normal limits (2) Hypothyroidism: Code(s): E03.9 - Hypothyroidism, unspecified Status: Acute Assessment and Plan: * TSH 20.97 * Patient received 150 MCG's in ED * Continue 175 mg daily (3) UTI (urinary tract infection): Code(s): N39.0 - Urinary tract infection, site not specified Status: Acute Assessment and Plan: * Chronic * Blood culture pending * Lactic acid, ammonia WBC and CT of the head within normal limits (4) Acute renal failure: Code(s): N17.9 - Acute kidney failure, unspecified Status: Acute Assessment and Plan: * * Resolved * Possibly secondary to urinary tract infection * Creatinine1.09>0.88>0.99 (5) GERD (gastroesophageal reflux disease): Code(s): K21.9 - Gastro-esophageal reflux disease without esophagitis Status: Acute Assessment and Plan: * Continue pantoprazole (6) Obstructive sleep apnea: Code(s): G47.33 - Obstructive sleep apnea (adult) (pediatric) Status: Acute Assessment and Plan: * Use of supplementary oxygen at night * Patient does not have CPAP (7) COPD (chronic obstructive pulmonary disease): Code(s): J44.9 - Chronic obstructive pulmonary disease, unspecified Status: Acute Assessment and Plan: * Stable * Continue albuterol (8) Hypertension: Code(s): I10 - Essential (primary) hypertension Status: Acute Assessment and Plan: * Better controlled * Continue clonidine isosorbide losartan losartan and metoprolol * Vital signs as ordered * Will adjust medication as needed (9) Type 2 diabetes mellitus: Code(s): E11.9 - Type 2 diabetes mellitus without complications Status: Acute Assessment and Plan: * Less than 300 * Continue with Accu-Chek sliding scale hypoglycemic protocol * Will adjust medication as needed * Continue diabetic diet * A1c 6.1 (10) PNA (pneumonia): Code(s): J18.9 - Pneumonia, unspecified organism Status: Acute Assessment and Plan: * Continue Levaquin * Patient with excessive nausea and vomiting * Will add vancomycin for possible aspirating pneumonia * WBCs within normal limits Subjective Date/time seen: 09/19/21 09:03 Interval history: Patient is more alert today. We will resume her diet. The patient denies SOB, CP, palpitation, extremity numbness, lightheadedness, dizziness, constipation, diarrhea, chills, or fever. Received report the patient had several episodes of nausea and vomiting 2 days prior. Chest x-ray repeated which shows worsening pneumonia possibly aspirating pneumonia we will start vancomycin. Review of Systems Review of Systems: A 14 organ system Review of Systems was performed and pertinent positives included in the HPI, otherwise remaining ROS is negative. Exam Narrative: GENERAL: Morbidly obese poor hygiene in no apparent distress. HEAD: normocephalic, atraumatic. EYES: PERRL. Sclera clear/white. Vision is grossly intact. EARS: External ears normal, auditory canals clear and without drainage, TMs normal without perforation. Hearing grossly intact. NOSE: External
[2021-09-09] MEDS: ONDANSETRON INJ 4 MG/2 ML VIAL IV PUSH (09:23)
[2021-09-09 11:52] LABS: Glucose Point of Care 131 mg/dl (65-105)
[2021-09-09] MEDS: METOCLOPRAMIDE HCL INJ 10 MG/2 ML VIAL 5 MG IV PUSH ×3 (12:05→23:33)
[2021-09-09] MEDS: SODIUM CHLORIDE 0.9% IV 1,000 ML 75 ML IV CONT (14:39)
[2021-09-09 16:35] VITALS: BP 117/66; PULSE 74; RESP 20; TEMP 36.4; O2SAT 98
[2021-09-09] MEDS: FAMOTIDINE 20 MG TABLET PO (17:20)
[2021-09-09 17:27] LABS: Glucose Point of Care 96 mg/dl (65-105)
[2021-09-09] MEDS: cloNIDine HCL 0.2 MG TABLET PO (20:21)
[2021-09-09] MEDS: lamoTRIgine 100 MG TABLET 200 MG PO (20:21)
[2021-09-09] MEDS: risperiDONE 1 MG TABLET 4 MG PO (20:27)
[2021-09-09] MEDS: MICONAZOLE NITRATE 2% CREAM 30 GM TUBE 1 APPLIC TOPICAL (20:28)
[2021-09-09] MEDS: ROSUVASTATIN 10 MG TABLET 20 MG PO (20:28)
[2021-09-09] MEDS: RANOLAZINE 500 MG TAB.ER.12H 1000 MG PO (20:28)
[2021-09-09 21:06] LABS: Glucose Point of Care 102 mg/dl (65-105)
[2021-09-09 23:31] VITALS: BP 126/72; PULSE 79; RESP 17; TEMP 37.2; O2SAT 92
[2021-09-10] MEDS: SODIUM CHLORIDE 0.9% IV 1,000 ML 75 ML IV CONT (04:28)
[2021-09-10] MEDS: METOCLOPRAMIDE HCL INJ 10 MG/2 ML VIAL 5 MG IV PUSH ×3 (05:23→17:30)
[2021-09-10] MEDS: LEVOTHYROXINE SODIUM 100 MCG, LEVOTHYROXINE SODIUM 75 MCG 175 MCG PO (05:50)
[2021-09-10 05:57] VITALS: O2SAT 92
[2021-09-10 07:33] LABS: Glucose Point of Care 118 mg/dl (65-105)
--- NOTE | 2021-09-10 07:51 | P.PN_ITS ---
Progress Note: A&P Assessment and Plan (1) Acute alteration in mental status: Code(s): R41.82 - Altered mental status, unspecified Status: Acute Assessment and Plan: * Secondary to urinary tract infection versus pneumonia * UA with the growth of Pseudomas aeruginosa sensitive to Levaquin * Treat underlying cause * Continue Levaquin day 3 * Lactic acid, ammonia WBC and CT of the head within normal limits (2) Hypothyroidism: Code(s): E03.9 - Hypothyroidism, unspecified Status: Acute Assessment and Plan: * TSH 20.97 * Patient received 150 MCG's in ED * Continue 175 mg daily (3) UTI (urinary tract infection): Code(s): N39.0 - Urinary tract infection, site not specified Status: Acute Assessment and Plan: * Chronic * UA with the growth of Pseudomas aeruginosa sensitive to Levaquin * Continue Levaquin day 3 * Lactic acid, ammonia WBC and CT of the head within normal limits (4) Acute renal failure: Code(s): N17.9 - Acute kidney failure, unspecified Status: Acute Assessment and Plan: * * Resolved * Possibly secondary to urinary tract infection * Creatinine1.09>0.88>0.99 (5) GERD (gastroesophageal reflux disease): Code(s): K21.9 - Gastro-esophageal reflux disease without esophagitis Status: Acute Assessment and Plan: * Continue pantoprazole (6) Obstructive sleep apnea: Code(s): G47.33 - Obstructive sleep apnea (adult) (pediatric) Status: Acute Assessment and Plan: * Use of supplementary oxygen at night * Patient does not have CPAP (7) COPD (chronic obstructive pulmonary disease): Code(s): J44.9 - Chronic obstructive pulmonary disease, unspecified Status: Acute Assessment and Plan: * Stable * Continue albuterol (8) Hypertension: Code(s): I10 - Essential (primary) hypertension Status: Acute Assessment and Plan: * Better controlled 126/72 * Continue clonidine isosorbide losartan losartan and metoprolol * Vital signs as ordered * Will adjust medication as needed (9) Type 2 diabetes mellitus: Code(s): E11.9 - Type 2 diabetes mellitus without complications Status: Acute Assessment and Plan: * Less than 300 * Continue with Accu-Chek sliding scale hypoglycemic protocol * Will adjust medication as needed * Continue diabetic diet * A1c 6.1 (10) PNA (pneumonia): Code(s): J18.9 - Pneumonia, unspecified organism Status: Acute Assessment and Plan: * Repeat chest x-ray indicate worsening pneumonia * Patient with excessive nausea and vomiting * Will add vancomycin for possible aspirating pneumonia * Blood culture pending * WBCs within normal limits Subjective Date/time seen: 09/10/21 07:51 Interval history: Patient is more alert today. We will resume her diet. The patient denies SOB, CP, palpitation, extremity numbness, lightheadedness, dizziness, constipation, diarrhea, chills, or fever. Received report the patient had several episodes of nausea and vomiting 2 days prior. Chest x-ray repeated which shows worsening pneumonia possibly aspirating pneumonia we will start vancomycin. Exam Narrative: GENERAL: Morbidly obese poor hygiene in no apparent distress. HEAD: normocephalic, atraumatic. EYES: PERRL. Sclera clear/white. Vision is grossly intact. EARS: External ears normal, auditory canals clear and without drainage, TMs normal without perforation. Hearing grossly intact. NOSE: External nose normal with no o
--- NOTE | 2021-09-10 07:51 | WPDPN ---
Progress Note: A&P Assessment and Plan (1) Acute alteration in mental status: Code(s): R41.82 - Altered mental status, unspecified Status: Acute Assessment and Plan: Secondary to urinary tract infection versus pneumonia UA with the growth of Pseudomas aeruginosa sensitive to Levaquin Treat underlying cause Continue Levaquin day 3 Lactic acid, ammonia WBC and CT of the head within normal limits (2) Hypothyroidism: Code(s): E03.9 - Hypothyroidism, unspecified Status: Acute Assessment and Plan: TSH 20.97 Patient received 150 MCG's in ED Continue 175 mg daily (3) UTI (urinary tract infection): Code(s): N39.0 - Urinary tract infection, site not specified Status: Acute Assessment and Plan: Chronic UA with the growth of Pseudomas aeruginosa sensitive to Levaquin Continue Levaquin day 3 Lactic acid, ammonia WBC and CT of the head within normal limits (4) Acute renal failure: Code(s): N17.9 - Acute kidney failure, unspecified Status: Acute Assessment and Plan: Resolved Possibly secondary to urinary tract infection Creatinine1.09>0.88>0.99 (5) GERD (gastroesophageal reflux disease): Code(s): K21.9 - Gastro-esophageal reflux disease without esophagitis Status: Acute Assessment and Plan: Continue pantoprazole (6) Obstructive sleep apnea: Code(s): G47.33 - Obstructive sleep apnea (adult) (pediatric) Status: Acute Assessment and Plan: Use of supplementary oxygen at night Patient does not have CPAP (7) COPD (chronic obstructive pulmonary disease): Code(s): J44.9 - Chronic obstructive pulmonary disease, unspecified Status: Acute Assessment and Plan: Stable Continue albuterol (8) Hypertension: Code(s): I10 - Essential (primary) hypertension Status: Acute Assessment and Plan: Better controlled 126/72 Continue clonidine isosorbide losartan losartan and metoprolol Vital signs as ordered Will adjust medication as needed (9) Type 2 diabetes mellitus: Code(s): E11.9 - Type 2 diabetes mellitus without complications Status: Acute Assessment and Plan: Less than 300 Continue with Accu-Chek sliding scale hypoglycemic protocol Will adjust medication as needed Continue diabetic diet A1c 6.1 (10) PNA (pneumonia): Code(s): J18.9 - Pneumonia, unspecified organism Status: Acute Assessment and Plan: Repeat chest x-ray indicate worsening pneumonia Patient with excessive nausea and vomiting Will add vancomycin for possible aspirating pneumonia Blood culture pending WBCs within normal limits Subjective Date/time seen: 09/10/21 07:51 Interval history: Patient is more alert today. We will resume her diet. The patient denies SOB, CP, palpitation, extremity numbness, lightheadedness, dizziness, constipation, diarrhea, chills, or fever. Received report the patient had several episodes of nausea and vomiting 2 days prior. Chest x-ray repeated which shows worsening pneumonia possibly aspirating pneumonia we will start vancomycin. Exam Narrative: GENERAL: Morbidly obese poor hygiene in no apparent distress. HEAD: normocephalic, atraumatic. EYES: PERRL. Sclera clear/white. Vision is grossly intact. EARS: External ears normal, auditory canals clear and without drainage, TMs normal without perforation. Hearing grossly intact. NOSE: External nose normal with no obvious nasal discharge, nares without redness, no rhinorrhea. THROAT: Mucous membranes moist, posterior pharynx clear. NECK: Neck supple, non-tender without lymphadenopathy, masses or thyromegaly. CARDIOVASCULAR: Regular rate and rhythm without murmurs, gallops, or rubs. RESPIRATORY: Clear to auscultation. Breath sounds equal bilaterally. No wheezes, rales, or rhonchi. GASTROINTESTINAL: Abdomen soft, non-tender, nondistended. Bowel sounds are active. No hepato
[2021-09-10 07:52] LABS: Hematocrit 43.3 % (35.0-49.0); Hemoglobin 13.1 g/dL (12.0-15.0); Mean Corpuscular HGB Conc 30.3 g/dL (32.0-36.0); Mean Corpuscular Hemoglobin 30.1 pg (27.0-31.0); Mean Corpuscular Volume 99.5 fL (78.0-102.0); Platelet Count Result 216 K/mm3 (150-420); Red Blood Count 4.35 M/mm3 (4.20-5.40); Red Cell Distribution Width 14.6 % (11.6-14.4); White Blood Count 7.8 K/mm3 (4.8-10.8)
[2021-09-10 08:00] VITALS: BP 111/60; PULSE 76; RESP 16; TEMP 36.6; O2SAT 95
[2021-09-10 08:08] LABS: Alanine Aminotransferase 11 U/L (14-59); Albumin Level 2.8 g/dL (3.4-5.0); Alkaline Phosphatase 59 U/L (46-116); Anion Gap -1 mmol/L (8-16); Aspartate Amino Transferase < 10 U/L (15-37); Bilirubin,Total 0.4 mg/dL (0.00-1.00); Blood Urea Nitrogen 11 mg/dL (7-18); Calcium 7.7 mg/dL (8.5-10.1); Carbon Dioxide 36 mmol/L (21-32); Chloride 98 mmol/L (98-108); Estimated CRCL calculation 68 ml/min; Estimated Glomerular Filt Rate 57; Glucose 116 mg/dL (70-99); Magnesium 1.9 mg/dL (1.8-2.4); Osmolality Calculated 276 mOsm/kg (285-295); Potassium 3.9 mmol/L (3.5-5.1); Sodium 133 mmol/L (136-145)
[2021-09-10] MEDS: MICONAZOLE NITRATE 2% CREAM 30 GM TUBE 1 APPLIC TOPICAL ×2 (09:22→21:22)
[2021-09-10] MEDS: PANTOPRAZOLE SODIUM IV 40 MG VIAL IV PUSH (10:56)
[2021-09-10] MEDS: FUROSEMIDE INJ 40 MG/4 ML VIAL IV PUSH (10:56)
[2021-09-10 11:38] LABS: Glucose Point of Care 124 mg/dl (65-105)
[2021-09-10] MEDS: DOCUSATE SODIUM 100 MG CAPSULE PO ×2 (13:24→16:58)
[2021-09-10 15:32] VITALS: BP 138/91; PULSE 82; RESP 18; TEMP 36.8; O2SAT 92
[2021-09-10 16:46] LABS: Glucose Point of Care 114 mg/dl (65-105)
[2021-09-10] MEDS: FAMOTIDINE 20 MG TABLET PO (16:58)
[2021-09-10] MEDS: POTASSIUM CHLORIDE 20 MEQ TABLET 40 MEQ PO (16:59)
[2021-09-10] MEDS: RANOLAZINE 500 MG TAB.ER.12H 1000 MG PO (21:19)
[2021-09-10] MEDS: risperiDONE 1 MG TABLET 4 MG PO (21:19)
[2021-09-10] MEDS: cloNIDine HCL 0.2 MG TABLET PO (21:20)
[2021-09-10] MEDS: ROSUVASTATIN 10 MG TABLET 20 MG PO (21:21)
[2021-09-10] MEDS: lamoTRIgine 100 MG TABLET 200 MG PO (21:21)
[2021-09-10 21:24] LABS: Glucose Point of Care 124 mg/dl (65-105)
[2021-09-11] VITALS: BP 110/62; PULSE 81; RESP 16; TEMP 36.7; O2SAT 92
[2021-09-11] MEDS: METOCLOPRAMIDE HCL INJ 10 MG/2 ML VIAL 5 MG IV PUSH ×2 (00:39→06:26)
--- NOTE | 2021-09-11 05:58 | P.DS_ITS ---
DS: Admitting Diagnosis Discharge Date 09/11/2021 Admitting Diagnosis Mental status and UTI DS: Discharge Diagnosis Discharge Diagnosis (1) Acute alteration in mental status: Code(s): R41.82 - Altered mental status, unspecified Status: Acute Assessment and Plan: * Secondary to urinary tract infection versus pneumonia * UA with the growth of Pseudomas aeruginosa sensitive to Levaquin * Treat underlying cause * Continue Levaquin day 4 * Lactic acid, ammonia WBC and CT of the head within normal limits (2) Hypothyroidism: Code(s): E03.9 - Hypothyroidism, unspecified Status: Acute Assessment and Plan: * TSH 20.97 * Patient received 150 MCG's in ED * Continue 175 mg daily (3) UTI (urinary tract infection): Code(s): N39.0 - Urinary tract infection, site not specified Status: Acute Assessment and Plan: * Chronic * UA with the growth of Pseudomas aeruginosa sensitive to Levaquin * Continue Levaquin day 4 * Lactic acid, ammonia WBC and CT of the head within normal limits (4) Acute renal failure: Code(s): N17.9 - Acute kidney failure, unspecified Status: Acute Assessment and Plan: * * Resolved * Possibly secondary to urinary tract infection * Creatinine1.09>0.88>0.99 (5) GERD (gastroesophageal reflux disease): Code(s): K21.9 - Gastro-esophageal reflux disease without esophagitis Status: Acute Assessment and Plan: * Continue pantoprazole (6) Obstructive sleep apnea: Code(s): G47.33 - Obstructive sleep apnea (adult) (pediatric) Status: Acute Assessment and Plan: * Use of supplementary oxygen at night * Patient does not have CPAP (7) COPD (chronic obstructive pulmonary disease): Code(s): J44.9 - Chronic obstructive pulmonary disease, unspecified Status: Acute Assessment and Plan: * Stable * Continue albuterol (8) Hypertension: Code(s): I10 - Essential (primary) hypertension Status: Acute Assessment and Plan: * Better controlled * Continue clonidine isosorbide losartan losartan and metoprolol * Vital signs as ordered * Will adjust medication as needed (9) Type 2 diabetes mellitus: Code(s): E11.9 - Type 2 diabetes mellitus without complications Status: Acute Assessment and Plan: * Less than 300 * Continue with Accu-Chek sliding scale hypoglycemic protocol * Will adjust medication as needed * Continue diabetic diet * A1c 6.1 (10) PNA (pneumonia): Code(s): J18.9 - Pneumonia, unspecified organism Status: Acute Assessment and Plan: * Continue Levaquin * Patient with excessive nausea and vomiting * Will add vancomycin for possible aspirating pneumonia * WBCs within normal limits DS: Summary Hospital Course Reason for hospitalization: Altered mental status possibly secondary to UTI Hospital Course: This is a 61-year-old female who presented to our emergency department via EMS due to weakness.? Patient has a past medical history of GERD, anxiety, arthritis, asthma, COPD, diabetes, heart disease, hypertension, thyroid disorder.? According to the patient for the last couple of days she has been hallucinating.? She also noted that she had not been taking her medication pr operly due to confusion.? Patient notes that she was getting her medication mixed up.? She notes that occasionally her helps her with the medication but she did not receive help at this time.? Patient condition has improved since her admission she is anamika
--- NOTE | 2021-09-11 05:58 | PM.DS ---
DS: Admitting Diagnosis Discharge Date 09/11/2021 Admitting Diagnosis Mental status and UTI DS: Discharge Diagnosis Discharge Diagnosis (1) Acute alteration in mental status: Code(s): R41.82 - Altered mental status, unspecified Status: Acute Assessment and Plan: Secondary to urinary tract infection versus pneumonia UA with the growth of Pseudomas aeruginosa sensitive to Levaquin Treat underlying cause Continue Levaquin day 4 Lactic acid, ammonia WBC and CT of the head within normal limits (2) Hypothyroidism: Code(s): E03.9 - Hypothyroidism, unspecified Status: Acute Assessment and Plan: TSH 20.97 Patient received 150 MCG's in ED Continue 175 mg daily (3) UTI (urinary tract infection): Code(s): N39.0 - Urinary tract infection, site not specified Status: Acute Assessment and Plan: Chronic UA with the growth of Pseudomas aeruginosa sensitive to Levaquin Continue Levaquin day 4 Lactic acid, ammonia WBC and CT of the head within normal limits (4) Acute renal failure: Code(s): N17.9 - Acute kidney failure, unspecified Status: Acute Assessment and Plan: Resolved Possibly secondary to urinary tract infection Creatinine1.09>0.88>0.99 (5) GERD (gastroesophageal reflux disease): Code(s): K21.9 - Gastro-esophageal reflux disease without esophagitis Status: Acute Assessment and Plan: Continue pantoprazole (6) Obstructive sleep apnea: Code(s): G47.33 - Obstructive sleep apnea (adult) (pediatric) Status: Acute Assessment and Plan: Use of supplementary oxygen at night Patient does not have CPAP (7) COPD (chronic obstructive pulmonary disease): Code(s): J44.9 - Chronic obstructive pulmonary disease, unspecified Status: Acute Assessment and Plan: Stable Continue albuterol (8) Hypertension: Code(s): I10 - Essential (primary) hypertension Status: Acute Assessment and Plan: Better controlled Continue clonidine isosorbide losartan losartan and metoprolol Vital signs as ordered Will adjust medication as needed (9) Type 2 diabetes mellitus: Code(s): E11.9 - Type 2 diabetes mellitus without complications Status: Acute Assessment and Plan: Less than 300 Continue with Accu-Chek sliding scale hypoglycemic protocol Will adjust medication as needed Continue diabetic diet A1c 6.1 (10) PNA (pneumonia): Code(s): J18.9 - Pneumonia, unspecified organism Status: Acute Assessment and Plan: Continue Levaquin Patient with excessive nausea and vomiting Will add vancomycin for possible aspirating pneumonia WBCs within normal limits DS: Summary Hospital Course Reason for hospitalization: Altered mental status possibly secondary to UTI Hospital Course: This is a 61-year-old female who presented to our emergency department via EMS due to weakness.? Patient has a past medical history of GERD, anxiety, arthritis, asthma, COPD, diabetes, heart disease, hypertension, thyroid disorder.? According to the patient for the last couple of days she has been hallucinating.? She also noted that she had not been taking her medication properly due to confusion.? Patient notes that she was getting her medication mixed up.? She notes that occasionally her helps her with the medication but she did not receive help at this time.? Patient condition has improved since her admission she is being treated for UTI. She was discharged to [facility] facility for PT OT. Patient agrees she is ready for discharge. The patient denies SOB, CP, palpitation, extremity numbness, lightheadedness, dizziness, constipation, diarrhea, chills, or fever. Patient is medically stable for discharge Time Spent with Patient Time attestation: Total time spent providing and/or coordinating discharge services: Exam Narrative: GENERAL: Morbidly obese
[2021-09-11 06:17] LABS: Hemoglobin 14.6 g/dL (12.0-15.0); Mean Corpuscular HGB Conc 31.1 g/dL (32.0-36.0); Mean Corpuscular Hemoglobin 31.1 pg (27.0-31.0); Mean Platelet Volume 9.1 fl (9.2-11.8); Platelet Count Result 227 K/mm3 (150-420); Red Cell Distribution Width 14.1 % (11.6-14.4); White Blood Count 7.1 K/mm3 (4.8-10.8)
[2021-09-11] MEDS: LEVOTHYROXINE SODIUM 100 MCG, LEVOTHYROXINE SODIUM 75 MCG 175 MCG PO (06:27)
[2021-09-11 06:43] LABS: Alanine Aminotransferase 12 U/L (14-59); Albumin Level 2.8 g/dL (3.4-5.0); Alkaline Phosphatase 59 U/L (46-116); Anion Gap 2 mmol/L (8-16); Aspartate Amino Transferase < 10 U/L (15-37); Bilirubin,Total 0.2 mg/dL (0.00-1.00); Blood Urea Nitrogen 12 mg/dL (7-18); Calcium 7.9 mg/dL (8.5-10.1); Carbon Dioxide 36 mmol/L (21-32); Chloride 102 mmol/L (98-108); Estimated CRCL calculation 63 ml/min; Estimated Glomerular Filt Rate 52; Glucose 152 mg/dL (70-99); Osmolality Calculated 292 mOsm/kg (285-295); Potassium 4.4 mmol/L (3.5-5.1); Sodium 140 mmol/L (136-145)
[2021-09-11 08:00] VITALS: BP 132/74; PULSE 72; RESP 20; TEMP 36.8; O2SAT 93
[2021-09-11 08:12] LABS: Glucose Point of Care 152 mg/dl (65-105)
[2021-09-11] MEDS: ENOXAPARIN 40 MG/0.4 ML SYRINGE SUB-Q (08:38)
[2021-09-11] MEDS: cloNIDine HCL 0.2 MG TABLET PO (08:39)
[2021-09-11] MEDS: POTASSIUM CHLORIDE 20 MEQ TABLET 40 MEQ PO (08:39)
[2021-09-11] MEDS: RANOLAZINE 500 MG TAB.ER.12H 1000 MG PO (08:39)
[2021-09-11] MEDS: DULoxetine HCL 30 MG CAPSULE.DR 90 MG PO (08:39)
[2021-09-11] MEDS: TORSEMIDE 20 MG TABLET 40 MG PO (08:39)
[2021-09-11] MEDS: LOSARTAN POTASSIUM 50 MG TABLET 100 MG PO (08:40)
[2021-09-11] MEDS: lamoTRIgine 100 MG TABLET PO (08:40)
[2021-09-11] MEDS: CHOLECALCIFEROL 1,000 UNITS TABLET 2000 UNITS PO (08:40)
[2021-09-11] MEDS: CYANOCOBALAMIN 1,000 MCG TABLET 1000 MCG PO (08:40)
[2021-09-11] MEDS: ISOSORBIDE MONONITRATE 30 MG TAB.ER.24H PO (08:40)
[2021-09-11] MEDS: CALCIUM CARBONATE (OSCAL) 250 MG TABLET PO (08:40)
[2021-09-11] MEDS: MICONAZOLE NITRATE 2% CREAM 30 GM TUBE 1 APPLIC TOPICAL (08:41)
[2021-09-11] MEDS: PANTOPRAZOLE SOD SESQUIHYDRATE 20 MG TAB PO (08:41)
[2021-09-11] MEDS: ASPIRIN 81 MG ENTERIC TABLET PO (08:41)
[2021-09-11] MEDS: FAMOTIDINE 20 MG TABLET PO (08:41)
[2021-09-11] MEDS: DOCUSATE SODIUM 100 MG CAPSULE PO (08:44)
[2021-09-11 09:58] LABS: SARS-CoV-2 RNA PCR Negative (Negative)
[2021-09-11 11:44] LABS: Glucose Point of Care 144 mg/dl (65-105)
[2021-09-11 13:00] VITALS: O2SAT 92
--- NOTE | 2021-09-11 15:26 | PC.NURSE ---
1200 ambulance here . report and care turned over to them. report was called to darian @ [facility]ist[facility] stauffer
--- NOTE | 2021-09-12 13:59 | PC.NURSE ---
[facility] nurse states they received and understood the discharge instructions.
== END 2021-09-11 12:00 | DRG 391 ==
LOC: CHSED 08:29 → CHS2ND 08:50
PROVIDERS: Nurse Practitioner; Admitting Provider Internal Medicine; Emergency Provider Family Medicine; PCP Family Medicine; Visit Provider Internal Medicine
DX: K21.9 Gastro-esophageal reflux disease without esophagitis (principal); J18.9 Pneumonia, unspecified organism; N17.9 Acute kidney failure, unspecified; N39.0 Urinary tract infection, site not specified; J44.9 Chronic obstructive pulmonary disease, unspecified; I10 Essential (primary) hypertension; E11.9 Type 2 diabetes mellitus without complications; E03.9 Hypothyroidism, unspecified; F41.9 Anxiety disorder, unspecified; M19.90 Unspecified osteoarthritis, unspecified site; G47.33 Obstructive sleep apnea (adult) (pediatric); B96.5 Pseudomonas (aeruginosa) (mallei) (pseudomallei) as the cause of diseases classified elsewhere
CPT/HCPCS: 36415; 70450; 71045; 74176; 80053; 80307; 81001; 82140; 82550; 82948; 83036; 83605; 83690; 83735; 83880; 84443; 84484; 85025; 85027; 85610; 87086; 87186; 87426; 93005; 96361; 96365; 96366; 96372; 96375; 97161; 97165; 99285; A9270; C9113; C9803; G0378; J0780; J1650; J1940; J1956; J2060; J2405; J2765; J7030; U0003; U0005

== ENCOUNTER 2022-08-13 16:50 | Emergency (ER) | payer MEDICARE, OTHER, SELFPAY ==
--- NOTE | ~2022-08-13 | CT_ITS ---
EXAMINATION: CT abdomen pelvis w con DATE: 08/13/2022 19:15 INDICATION: pyelonephritis TECHNIQUE: Computed tomography (CT) of the abdomen and pelvis was performed with 100 mL Omnipaque-350 intravenous contrast. Automated exposure control and iterative reconstruction technique were employe d. The dose-length product was 1379.26 mGy-cm. COMPARISON: 09/09/2021. FINDINGS: Lower thorax: Motion artifact in the lung bases. Calcified granulomas in the right lower lobe. Cardio megaly. Liver: Mild hepatomegaly. Biliary/Gallbladder: Gallbladder is normal. No bile duct dilation. Pancreas: No mass or duct dilation. Spleen: Normal. Adrenals:No mass. Kidneys: No mass, stone, or hydronephrosis. GI tract: No small or large bowel dilation. Normal appendix. Mild diverticulosis without diverticulit is. Mesentery/Peritoneum: No ascites, mass, or free air. Retroperitoneum: No mass. Mild atherosclerotic abdominal aortic and/or arterial calcifications. Pelvis: Normal uterus. Partially distended urinary bladder with wall thickening. Soft Tissues: Large umbilical hernia containing multiple loops of nondilated small bowel. No signific ant inflammatory change or fluid within the hernia sac. Bones: No acute osseous finding. IMPRESSION: Cardiomegaly. Mild hepatomegaly. Urinary bladder wall thickening which may be secondary to incomplete distention or cystitis. Large umbilical hernia containing multiple loops of small bowel, without CT evidence of strangulation or obstruction. Reviewed, dictated and finalized at location K. IMPRESSION: Cardiomegaly. Mild hepatomegaly. Urinary bladder wall thickening which may be s econdary to incomplete distention or cystitis. Large umbilical hernia containin g multiple loops of small bowel, without CT evidence of strangulation or obstru ction.
--- NOTE | ~2022-08-13 | CT_ITS ---
EXAMINATION: CT brain wo con DATE: 08/13/2022 17:48 INDICATION: CONFUSION . TECHNIQUE: Computed tomography (CT) of the head was performed without intravenous contrast. The mA wa s adjusted according to patient size. Iterative reconstruction technique was employed. The dose-lengt h product was 605.33 mGy-cm. COMPARISON: 09/07/2021. FINDINGS: No acute intracranial hemorrhage or extra-axial fluid collection. No hydrocephalus, mass, or herniation. No acute ischemic infarct. Unremarkable dural venous sinus attenuation. No acute osseous abnormality. The aerated spaces are clear. IMPRESSION: No acute intracranial process. Reviewed, dictated and finalized at location K.
--- NOTE | ~2022-08-13 | XR_ITS ---
EXAMINATION: XR chest 1V portable Exam Date/Time: 08/13/2022 17:36 CDT HISTORY: shortness of breath Comparison: 09/09/2021. RESULT: Lines, tubes, and devices: None. Lungs and pleura: Low volumes with crowding. Prominent pulmonary vessels. Streaky bibasilar opacitie s likely representing atelectasis or scar. Improved aeration of the bilateral lung bases. Cardiomediastinal silhouette: Stable. Other: No acute osseous or upper abdominal finding. IMPRESSION: Pulmonary vascular congestion. Reviewed, dictated and finalized at location K.
[2022-08-13 16:50] VITALS: PULSE 62; PULSE 66; RESP 18; O2SAT 98
[2022-08-13 17:00] VITALS: BP 112/71; PULSE 63; RESP 20; TEMP 36.9; O2SAT 92
--- NOTE | 2022-08-13 17:01 | ED.AMS ---
HPI - Altered Mental Status General Chief Complaint: Altered Mental Status Stated Complaint: UTI; confusion Time Seen by Provider: 08/13/22 16:55 Source: patient Mode of arrival: EMS History of Present Illness HPI narrative: 62-year-old a history of obesity, VAN, diabetes mellitus, dyslipidemia,asthma, COPD, anxiety, arthritis, hypothyroidism, CKD, hypertension, coronary artery disease, candidiasis has a history of recurrent urinary tract infection. She has had 2 rounds of antibiotics in the recent past including Cipro and Keflex. She is noted to have -- ongoing urinary tract infection with a positive UA. The patient has been having intermittent urinary tract infections off and on for the past 6 weeks. The patient had been on nitrofurantoin prophylaxis which was discontinued after 2 weeks. Patient does not complain of any fever or chills. No dysuria or hematuria. -- altered mental status. The patient is confused and has hallucinations. The patient has a history of bipolar and has a history of altered mental status in the past. Patient denied any chest pain or shortness of breath. MD complaint: altered mental status and confusion Onset (ago): unknown Timing confirmed by: spouse Context: diabetes and other ( Urinary tract infections) Associated symptoms: denies other symptoms, foul smelling urine and incontinence Related Data Home Medications Medication Instructions Recorded Confirmed albuterol sulfate 90 mcg/actuation 2 puff inhalation Q4H PRN 07/26/20 08/13/22 aerosol inhaler Shortness Of Breath cholecalciferol (vitamin D3) 25 50 mcg PO DAILY 07/26/20 08/13/22 mcg (1,000 unit) capsule clonidine HCl 0.2 mg tablet 0.2 mg PO BID 07/26/20 08/13/22 docusate sodium 100 mg capsule 100 mg PO TID 07/26/20 08/13/22 (Colace) famotidine 20 mg tablet 20 mg PO BID 07/26/20 08/13/22 fluticasone propionate 50 1 spray intranasal DAILY 07/26/20 08/13/22 mcg/actuation nasal spray,suspension losartan 100 mg tablet 100 mg PO DAILY 07/26/20 08/13/22 potassium chloride 20 mEq 40 meq PO BID 07/26/20 08/13/22 tablet,extended release ranolazine 500 mg tablet,extended 1,000 mg PO BID 07/26/20 08/13/22 release,12 hr risperidone 4 mg tablet 2 mg PO HS 07/26/20 08/13/22 trazodone 100 mg tablet 200 mg PO HS 07/26/20 08/13/22 cyanocobalamin (vitamin B-12) 1,000 mcg PO DAILY 11/12/20 08/13/22 1,000 mcg capsule duloxetine 30 mg capsule,delayed 90 mg PO DAILY 11/12/20 08/13/22 release fluocinolone acetonide oil 0.01 % 3 - 5 drp EACH EAR BID PRN Itching 11/12/20 08/13/22 ear drops isosorbide mononitrate 30 mg 30 mg PO DAILY 11/12/20 08/13/22 tablet,extended release 24 hr lamotrigine 100 mg tablet 100 mg PO QAM 11/12/20 08/13/22 lamotrigine 100 mg tablet 200 mg PO HS 11/12/20 08/13/22 metoprolol tartrate 25 mg tablet 25 mg PO Q12H 11/12/20 08/13/22 nitroglycerin 0.4 mg sublingual 0.4 mg sublingual Q5M PRN Chest 11/12/20 08/13/22 tablet Pain rosuvastatin 20 mg tablet 20 mg PO HS 11/12/20 08/13/22 sitagliptin phosphate 100 mg 50 mg PO DAILY 11/12/20 08/13/22 tablet (Januvia) torsemide 20 mg tablet 40 mg PO DAILY 11/12/20 08/13/22 aspirin 81 mg tablet 81 mg PO DAILY 09/07/21 08/13/22 fluticasone 250 mcg-salmeterol 50 1 inh inhalation Q12H 09/07/21 08/13/22 mcg/dose blistr powdr for inhalation (Advair Diskus) levothyroxine 175 mcg tablet 175 mcg PO DAILY 09/07/21 08/13/22 loratadine 10 mg tablet (Claritin) 10 mg PO DAILY PRN Allergy Symptoms 09/07/21 08/13/22 benztropine 0.5 mg tablet 0.5 mg PO BID 08/13/22 08/13/22 quetiapine 150 mg tablet 150 mg PO DAILY 08/13/22 08/13/22 Allergies Allergy/AdvReac Type Severity Reaction Status Date / Time dapagliflozin [From Farxiga] Allergy Intermediate Unknown Verified 08/13/22 16:59 Penicillins Allergy Unknown Unknown Verified 08/13/22 16:59 Sulfa (Sulfonamide Allergy Unknown Unknown Verified 08/13/22 16:59 Antibiotics) Review of Systems Review of Systems: All systems rev
--- NOTE | 2022-08-13 17:10 | ECG_ITS ---
Measurements Intervals [place] Rate: 61 P: 42 WA: 209 QRS: -31 QRSD: 102 T: -3 QT: 415 QTc: 421 Interpretive Statements SINUS RHYTHM LOW QRS VOLTAGE IN PRECORDIAL LEADS [QRS DEFLECTION < 1.0 mV IN CHEST LEADS] POOR R-WAVE PROGRESSION, PROBABLE OLD ANTERIOR NH PROBABLE OLD iNFERIOR MYOCARDIAL INFARCTION COMPARED TO ECG 09/07/2021 07:30:20 NO SIGNIFICANT CHANGES Electronically Signed On 08-13-2022 18:27:02 CDT by Sonali Carpenter M.D.
--- NOTE | 2022-08-13 17:36 | PC.NURSE ---
PT IS IN CT AT THIS TIME. PT IS AWAITING LAB RESULTS. AND SON AT BEDSIDE. PT TOLERATED STRAIGHT URINARY CATH WELL. DRY DEPEND WAS IN PLACE.
[2022-08-13 17:38] LABS: Appearance Urine Clear (Clear); Basophils Absolute Auto 0.03 K/mm3 (0.00-0.10); Basophils Percent Auto 0.3 % (0.0-1.0); Bilirubin Urine 1+ (Negative); Blood Urine Negative (Negative); Color Urine Yellow (Yellow); Eosinophils Absolute Auto 0.25 K/mm3 (0.02-0.50); Eosinophils Percent Auto 2.8 % (1.0-6.0); Glucose Urine UA Negative (Negative); Hematocrit 43.4 % (35.0-49.0); Hemoglobin 13.4 g/dL (12.0-15.0); Immature Granulocyte Absolute 0.04 K/mm3 (0.00-0.00); Immature Granulocyte Percent A 0.4 % (0.0-0.0); Ketones Urine Negative (Negative); Leukocyte Esterase Ur 2+ LEU/UL (Negative); Lymphocytes Absolute Auto 1.01 K/mm3 (1.10-4.50); Lymphocytes Percent Auto 11.3 % (18.0-42.0); Mean Corpuscular HGB Conc 30.9 g/dL (32.0-36.0); Mean Corpuscular Hemoglobin 30.7 pg (27.0-31.0); Mean Corpuscular Volume 99.5 fL (78.0-102.0); Mean Platelet Volume 9.8 fl (9.2-11.8); Monocytes Percent Auto 8.9 % (2.0-11.0); Neutrophils Absolute Auto 6.8 K/mm3 (1.7-7.2); Neutrophils Percent Auto 76.3 % (50.0-70.0); Nitrate Urine Positive (Negative); Platelet Count Result 255 K/mm3 (150-420); Protein Urine 1+ (Negative); Red Blood Count 4.36 M/mm3 (4.20-5.40); Red Cell Distribution Width 13.8 % (11.6-14.4); Specific Grav Ur >= 1.030 (1.010-1.020); Urobilinogen Urine 0.2 mg/dL (0.2-1.0); pH Urine 5.5 (5.0-8.0)
[2022-08-13 17:48] LABS: Add Urine Microscopic? YES; Bacteria Urine 4+ /hpf; RBC Urine 0-2 /hpf (0-2); Squamous Epithelial Cell Urine None seen /hpf (Few); WBC Urine 21-50 /hpf (0-3)
[2022-08-13 17:52] LABS: Prothrombin Time 10.9 Seconds (9.50-12.10)
[2022-08-13 17:59] LABS: Lactic Acid Reflex 0.6 mmol/L (0.4-2.0)
[2022-08-13 18:04] VITALS: BP 131/74; PULSE 60; RESP 18; O2SAT 97
[2022-08-13 18:07] LABS: Alanine Aminotransferase 14 U/L (14-59); Albumin Level 3.4 g/dL (3.4-5.0); Alkaline Phosphatase 75 U/L (46-116); Ammonia 14 umol/L (11-32); Anion Gap 5 mmol/L (8-16); Aspartate Amino Transferase 15 U/L (15-37); Bilirubin,Total 0.5 mg/dL (0.00-1.00); Blood Urea Nitrogen 22 mg/dL (7-18); Calcium 8.7 mg/dL (8.5-10.1); Carbon Dioxide 35 mmol/L (21-32); Chloride 101 mmol/L (98-108); Creatine Kinase 180 U/L (26-192); Estimated CRCL calculation 113 ml/min; Estimated Glomerular Filt Rate 53; Glucose 118 mg/dL (70-99); Lipase 15 U/L (16-77); NT Pro B Type Natriuretic Pept 68 pg/mL (0-125); Osmolality Calculated 296 mOsm/kg (285-295); Potassium 4.1 mmol/L (3.5-5.1); Sodium 141 mmol/L (136-145); Thyroid Stimulating Hormone 10.74 uIU/mL (0.36-3.74); Total Protein 6.7 g/dL (6.4-8.2)
[2022-08-13 18:31] VITALS: BP 120/77; PULSE 62; RESP 18; O2SAT 96
--- NOTE | 2022-08-13 18:49 | PC.NURSE ---
PT IS TO BE TRANSFERRED TO [facility], AWAITING ROOM ASSIGNMENT. PT IS TO HAVE ABD CT, AWAITING RAD AT THIS TIME. FAMILY HAVE LEFT FOR A WHILE TO EAT DINNER, THEY ARE AWARE OF PLAN OF CARE. VSS PER MONITOR. NAD NOTED. WILL CONTINUE TO MONITOR. PT IS ABLE TO ANSWER QUESTIONS, THEN TALKS ABOUT RANDOM ISSUES UNRELATED TO QUESTIONS.
[2022-08-13] MEDS: LACTATED RINGERS 500 ML 999 ML IV CONT (19:19)
[2022-08-13] MEDS: CEFEPIME 2 GM/NS 50 ML 2 GM/50 ML BAG IVPB (19:59)
--- NOTE | 2022-08-13 20:14 | PC.NURSE ---
Report given to tracey at [facility]
[2022-08-13 20:55] VITALS: BP 163/92; PULSE 67; RESP 18; TEMP 37.1; O2SAT 98
--- NOTE | 2022-08-16 12:56 | PC.NURSE ---
FINAL URINE CULTURE RESULTS: GREATER THAN 100,000 CFU/ML OF E COLI. RESULTS WERE CALLED TO SARAH CUELLAR AT [facility].
--- NOTE | 2022-08-19 12:54 | PC.NURSE ---
final blood culture reports x2 reviewed. no growth after 5 days. no change in plan of care.
== END 2022-08-13 20:45 | disposition short-term general hospital (02) ==
PROVIDERS: Emergency Provider Internal Medicine Critical Care Medicine; PCP Family Medicine
DX: R41.0 Disorientation, unspecified (principal); I13.0 Hypertensive heart and chronic kidney disease with heart failure and stage 1 through stage 4 chronic kidney disease, or unspecified chronic kidney disease; E11.22 Type 2 diabetes mellitus with diabetic chronic kidney disease; N18.9 Chronic kidney disease, unspecified; I50.9 Heart failure, unspecified; I25.10 Atherosclerotic heart disease of native coronary artery without angina pectoris; E78.5 Hyperlipidemia, unspecified; J44.9 Chronic obstructive pulmonary disease, unspecified; E03.9 Hypothyroidism, unspecified; F17.210 Nicotine dependence, cigarettes, uncomplicated; Z79.82 Long term (current) use of aspirin
CPT/HCPCS: 36415; 70450; 71045; 74177; 80053; 81001; 82140; 82550; 82948; 83605; 83690; 83880; 84443; 84484; 85025; 85610; 87040; 87077; 87086; 87088; 87186; 93005; 96365; 99285; J0692; J7120; Q9967

== ENCOUNTER 2022-08-13 21:25 | Inpatient (IN) | payer MEDICARE, OTHER, SELFPAY ==
--- NOTE | ~2022-08-13 | US_ITS ---
EXAMINATION:US venous doppler LE BI INDICATION:Leg edema TECHNIQUE: Multiple grayscale, color flow and Doppler images of the bilateral lower extremity deep ve nous systems were obtained and reviewed. COMPARISON:No prior studies for comparison. FINDINGS: The common femoral, superficial femoral and popliteal veins demonstrate normal respiratory variation, augmentation and compressibility. Color flow is also seen within the posterior tibial, pe roneal, greater saphenous and profunda veins. IMPRESSION: 1: No lower extremity deep venous thrombosis. Reviewed, dictated and finalized at location []
[2022-08-13 21:38] VITALS: BP 154/80; PULSE 63; RESP 20; TEMP 36.2; O2SAT 97
[2022-08-13 21:40] VITALS: BMI 53.9
--- NOTE | 2022-08-13 21:46 | ADMGEN ---
This patient, Judy Panchal, was admitted to Medical Room 344-01. Patient/family oriented to hospital policies and general routines including ID bracelet, bed and alarms, visiting hours, pain management, procedures, bathroom and other care routines, personal items, smoking policy, room service/diet, and visiting hours. Information on how to activate the Rapid Response Team has been discussed. Patient/Family are encouraged to report perceived risks to care and to ask questions if they do not understand what they are told or what they should do.
--- NOTE | 2022-08-13 21:53 | PM.IMHP ---
H&P: HPI History of Present Illness Date/Time: 08/13/22 21:53 Chief Complaint: Altered mental status Narrative: This is a 62-year-old female patient who states that she has had multiple UTIs. She has a history of obesity dyslipidemia asthma anxiety hypothyroidism. The patient has had 2 rounds of antibiotics including Cipro and Keflex. We have no records in our system for the past year with cultures and sensitivities. The patient had been on nitro fair 29 prophylaxis it was discontinued 2 weeks ago. The patient was having hallucinations. She also has a history of bipolar and history of multiple UTIs. The patient is aware of who she is but she keeps saying that her parents who are in their 90s are going to come up and take care of her. The patient is typically treated at [facility] however the provider at [place] felt that the patient has frequent UTIs and needs to be seen by Urology. The patient is afebrile and has no white count. Neutrophil percentage is 76.3. Patient's creatinine is 1.05 which appears to be her baseline. Glucose is 118. Her TSH is 10.74 and no T3 was performed. Her urine was positive for nitrates. 2+ leukocyte esterase and 4+ bacteria. Cardiomegaly. Mild hepatomegaly. Urinary bladder wall thickening which may be secondary to incomplete distention or cystitis. Large umbilical hernia containing multiple loops of small bowel, without CT evidence of strangulation or obstruction. The patient was transferred to [facility] from [facility] as a direct admit. The patient is being admitted to observation status on the date of service of 08/13/2022. Review of Systems Review of Systems: All systems reviewed & are unremarkable except as noted in HPI and below Constitutional: Constitutional: Reports as per HPI and Reports no additional constitutional complaints Eyes: Eyes: Reports as per HPI and Reports no additional eye complaints ENT: Reports system reviewed and no additional complaints, except as documented and Reports Normal hearing present Cardiovascular: Cardiovascular: Reports no additional cardiovascular complaints Respiratory: Respiratory: Reports no additional respiratory complaints and Reports no additional respiratory complaints Gastrointestinal: Gastrointestinal: Reports as per HPI and Reports no additional gastrointestinal complaints Musculoskeletal: Musculoskeletal: Reports no additional musculoskeletal complaints Integumentary/Breasts: Skin/Breast: Reports system reviewed and no additional complaints, except as docu and Reports as per HPI Neurologic: Reports system reviewed and no additional complaints, except as documented, Reports as per HPI and Reports Normal hearing present Psychiatric: Psychiatric: Reports no additional psychiatric complaints and Reports as per HPI Endocrine: Endocrine: Reports no additional endocrine complaints Hematologic/Lymphatic: Hematologic/Lymphatic: Reports no additional hematologic/lymphatic complaints Allergic/Immunologic: Allergic/Immunologic: Reports no additional allergic/immunologic complaints [facility] Past Medical History Medical History (Updated 08/14/22 @ 00:36 by Arpita Dan NP) Acid reflux Anxiety Anxiety and depression Arthritis Asthma CHF (congestive heart failure), NYHA class I CHF exacerbation COPD (chronic obstructive pulmonary disease) Deviated septum Diabetes Heart disease Hyperlipidemia Hypertension Thyroid disorder Surgical History Surgical History History of dilation and curettage History of sinus surgery History of tonsillectomy and adenoidectomy Family History Family History Father Hypertension Heart disease Skin cancer Mother Asthma Diabetes mellitus Hypertension Depression Heart disease Thyroid disorder Sibling Asthma Diabetes mellitus Hypertension Depression Heart disease
[2022-08-14] VITALS (8 sets, daily range): BP systolic 105–148; BP diastolic 62–97; PULSE 63–92; RESP 16–20; TEMP 36.2–37.2; O2SAT 92–99
--- NOTE | 2022-08-14 | ECHO_ITS ---
Patient Info Name: Judy Panchal Age: 62 years : 1960 Gender: Female Ht: 60 in Wt: 276 lbs BSA: 2.39 m2 HR: 80 bpm BP: 136 / 60 mmHg Heart Rhythm: Sinus Rhythm Technical Quality: Fair Exam Date: 08/14/2022 9:32 AM Exam Location: [facility] Patient Status: Outpatient Admit Date: 08/13/2022 Staff Ordering Physician: Arpita Dan NP Nursing Staff Development Coordinator: Helen Allan RDCS Attending Provider: Dahiana Wright PA-C Referring Physician: Ni RAGSDALE; Exam Type: CA echo doppler color flow Study Info Indications - cardiomegaly and edema Complete two-dimensional, color flow and Doppler transthoracic echocardiogram is performed. Summary 1. Complete two-dimensional, color flow and Doppler transthoracic echocardiogram is performed. 2. Normal left ventricular size with mild concentric hypertrophy. Good systolic function of all segments with ejection fraction of 70%. Grade 2 diastolic dysfunction is present. 3. Left atrial chamber dimension is mildly enlarged. 4. No significant valve disease. 5. Normal sinus rhythm. Left Ventricle Left ventricular chamber dimension is normal. Left ventricular systolic function is normal, estimated at >70%. There is mildly increased left ventricular wall thickness. Left ventricular septal wall motion is normal. The left ventricular diastolic function is grade II diastolic dysfunction. Right Ventricle Right ventricular chamber dimension is normal. Right ventricular systolic function is normal. Left Atria Left atrial chamber dimension is mildly enlarged. Right Atria Right atrial chamber dimension is normal. Aortic Valve The aortic valve is trileaflet. There is no aortic valve sclerosis. There is no aortic valve stenosis. There is no aortic valve regurgitation. Pulmonic Valve The pulmonic valve is normal. There is no pulmonic valve stenosis. There is no pulmonic regurgitation. Mitral Valve The mitral valve has normal leaflets. There is no mitral valve stenosis. There is no mitral valve regurgitation. Tricuspid Valve The tricuspid valve leaflets are normal. There is no significant tricuspid valve stenosis. There is trace tricuspid valve regurgitation. No pulmonary hypertension, estimated pulmonary arterial systolic pressure is 15 mmHg. Pericardium/Pleural The pericardium appears normal. There is no pericardial effusion. Inferior Vena Cava Normal inferior vena cava with >50% collapse upon inspiration consistent with Empty right atrial pressure, 10 mmHg. Aorta The aortic root size at the sinus of Valsalva is normal. The prox ascending aorta size is normal. Left Ventricular Outflow Tract Name Value Normal LVOT 2D LVOT Diameter 2.0 cm LVOT Doppler LVOT Peak Gradient 5 mmHg LVOT Mean Gradient 3 mmHg LVOT VTI 25 cm LVOT VTI/AV VTI Ratio 0.6 LVOT Stroke Volume 80 ml Pulmonic Valve Name Value Normal RV
[2022-08-14] MEDS: risperiDONE 1 MG TABLET 2 MG PO ×3 (01:14→21:04)
[2022-08-14] MEDS: BENZTROPINE MESYLATE 0.5 MG TABLET PO ×3 (01:14→16:27)
[2022-08-14] MEDS: METOPROLOL TARTRATE 25 MG TABLET PO ×3 (01:14→21:05)
[2022-08-14] MEDS: lamoTRIgine 100 MG TABLET 200 MG PO ×2 (01:15→21:04)
[2022-08-14] MEDS: ROSUVASTATIN 10 MG TABLET 20 MG PO ×2 (01:15→21:05)
[2022-08-14] MEDS: cloNIDine HCL 0.2 MG TABLET PO ×3 (01:15→16:27)
[2022-08-14] MEDS: lamoTRIgine 100 MG TABLET PO (01:15)
[2022-08-14] MEDS: traZODone HCL 50 MG TABLET 200 MG PO ×2 (01:16→21:04)
[2022-08-14] MEDS: LEVOTHYROXINE SODIUM 75 MCG TABLET PO (05:28)
[2022-08-14] MEDS: LEVOTHYROXINE SODIUM 100 MCG TABLET PO (05:28)
[2022-08-14 06:05] LABS: Basophils Percent Auto 0.5 % (0.2-1.2); Eosinophils Absolute Auto 0.3 K/mm3 (0-0.3); Eosinophils Percent Auto 3.6 % (0-4.4); Hematocrit 41.7 % (37.0-47.0); Immature Granulocyte Absolute 0.04 K/mm3 (0.00-0.031); Immature Granulocyte Percent A 0.5 % (0-0.5); Lymphocytes Absolute Auto 1.08 K/mm3 (0.9-3.2); Lymphocytes Percent Auto 14.6 % (18.3-44.2); Mean Corpuscular HGB Conc 31.2 g/dl (32-36); Mean Corpuscular Volume 99.5 fl (80-100); Mean Platelet Volume 9.8 fl (7.4-10.4); Monocytes Absolute Auto 0.8 K/mm3 (0.1-0.6); Monocytes Percent Auto 10.9 % (2.6-8.5); Neutrophils Absolute Auto 5.2 K/mm3 (1.3-6.7); Neutrophils Percent Auto 69.9 % (45.5-73.1); Platelet Count Result 228 k/mm3 (150-375); Red Blood Count 4.19 M/mm3 (4.2-5.4); Red Cell Distribution Width 13.9 % (11.5-14.5); White Blood Count 7.4 K/mm3 (4.5-10.0)
[2022-08-14 06:15] LABS: Alanine Aminotransferase 10 U/L (6-35); Albumin Level 3.4 g/dL (3.5-5.1); Alkaline Phosphatase 57 U/L (38-126); Anion Gap 5 mmol/L (8-16); Aspartate Amino Transferase 18 U/L (14-36); Bilirubin,Total 0.5 mg/dL (0.2-1.3); Blood Urea Nitrogen 18 mg/dL (7-17); Calcium 7.7 mg/dL (8.4-10.2); Carbon Dioxide 30 mmol/L (22-30); Chloride 100 mmol/L (98-107); Estimated CRCL calculation 85 ml/min; Estimated Glomerular Filt Rate > 60; Glucose 91 mg/dL (65-110); Lactic Acid Reflex 0.6 mmol/L (0.7-2.0); Magnesium 2.1 mg/dL (1.6-2.3); Potassium 3.8 mmol/L (3.4-5.0); Sodium 135 mmol/L (137-145)
[2022-08-14 08:15] LABS: Glucose Point of Care 100 mg/dl (65-105)
[2022-08-14 08:22] LABS: Hemoglobin A1C 6.1 % (<5.7)
[2022-08-14] MEDS: TORSEMIDE 20 MG TABLET 40 MG PO (10:11)
[2022-08-14] MEDS: POTASSIUM CHLORIDE 20 MEQ ER TABLET 40 MEQ PO ×2 (10:12→16:26)
[2022-08-14] MEDS: RANOLAZINE 500 MG TAB.ER.12H 1000 MG PO ×2 (10:12→16:27)
[2022-08-14] MEDS: CHOLECALCIFEROL 1,000 UNITS TABLET 2000 UNITS PO (10:12)
[2022-08-14] MEDS: ISOSORBIDE MONONITRATE 30 MG TAB.ER.24H PO (10:12)
[2022-08-14] MEDS: LOSARTAN POTASSIUM 100 MG TABLET PO (10:12)
[2022-08-14] MEDS: DOCUSATE SODIUM 100 MG CAPSULE PO ×3 (10:13→16:27)
[2022-08-14] MEDS: CYANOCOBALAMIN 1,000 MCG TABLET 1000 MCG PO (10:13)
[2022-08-14] MEDS: ASPIRIN 81 MG ENTERIC TABLET PO (10:13)
[2022-08-14] MEDS: DULoxetine HCL 30 MG CAPSULE.DR 90 MG PO (10:13)
[2022-08-14] MEDS: FAMOTIDINE 20 MG TABLET PO ×2 (10:13→16:27)
[2022-08-14] MEDS: FLUTICASONE PROPIONATE 0.05% NA SPR 16 GM BTL (*BKC) 1 SPRAY NASAL (10:14)
[2022-08-14] MEDS: TOLNAFTATE 1% POWDER 45 GM BTL 1 APPLIC TOPICAL ×2 (10:14→21:07)
[2022-08-14 10:55] LABS: Free T4 Free Thyroxine Reflex 1.97 ng/dL (0.78-2.19)
[2022-08-14 11:44] LABS: Total Triiodothyronine (T3) 0.83 NG/ML (0.97-1.69)
--- NOTE | 2022-08-14 12:26 | PM.IMPN ---
Progress Note: A&P Assessment and Plan (1) UTI (urinary tract infection): Code(s): N39.0 - Urinary tract infection, site not specified Status: Acute Assessment and Plan: Urinalysis abnormal. Urine culture pending. Blood cultures pending. Patient remains afebrile, no leukocytosis. Continue empiric treatment with IV Rocephin and await culture results. Patient has reportedly had multiple UTIs, recently treated with Cipro and Keflex. Also reportedly on prophylactic therapy with Macrobid which was discontinued 2 weeks ago. Patient was transferred from [facility] for Urology consultation, recommendations are appreciated (2) Acute alteration in mental status: Code(s): R41.82 - Altered mental status, unspecified Status: Acute Assessment and Plan: A&O x2. Head CT with acute findings this. Likely secondary to urinary tract infection. Unsure with patient's mental status is at baseline. (3) Hypothyroidism: Code(s): E03.9 - Hypothyroidism, unspecified Status: Acute Assessment and Plan: TSH markedly elevated, 10.3. Free T4 is within normal limits, 1.97. Total T3 slightly decreased, 0.83. Unsure if patient has been taking her levothyroxine as prescribed. At this time, will continue with current dose, 175 mcg daily, and will attempt to confer with family to determine if patient is taking medications appropriately. If so, will consider dose increase of levothyroxine. (4) Obstructive sleep apnea: Code(s): G47.33 - Obstructive sleep apnea (adult) (pediatric) Status: Acute Assessment and Plan: Patient is noncompliant with CPAP (5) Hypertension: Code(s): I10 - Essential (primary) hypertension Status: Acute Assessment and Plan: Blood pressures are stable. Continue home antihypertensives, clonidine, isosorbide, losartan, metoprolol, torsemide (6) Type 2 diabetes mellitus: Code(s): E11.9 - Type 2 diabetes mellitus without complications Status: Acute Assessment and Plan: A1c is 6.1. Blood sugars are controlled at this time. Continue with Accu-Cheks, sliding scale insulin, hypoglycemic protocol. Continue home Januvia (7) CHF (congestive heart failure), NYHA class I: Code(s): I50.9 - Heart failure, unspecified Status: Acute Assessment and Plan: Patient with history of CHF, unknown type and chronicity. No prior echo available for review. CXR on presentation showed pulmonary vascular congestion. BNP well within normal limits. Does not appear to be in acute exacerbation at this time. Echocardiogram is pending. Continue home medications. Monitor volume status Subjective Date/time seen: 08/14/22 12:26 Interval history: Date of service: 08/14/2022 Judy Panchal is a 62-year-old female with a history of CHF, COPD, hypertension, CAD, and frequent UTI who is seen in follow-up for altered mental status, felt to be secondary to UTI. Patient states she feels ?foggy? today. She is oriented to self. She can accurately state the year and states that we are in the ?6th month? then states the month is June. She believes that we are at [facility] and that she was transferred here from [facility]. She reports chronic urinary incontinence. To denies any flank pain or back pain. She reports chronic abdominal pressure secondary to a large umbilical hernia. She denies shortness breath, cough, or chest pain. Review of Systems Review of Systems: All systems reviewed & are unremarkable except as noted in HPI and below Exam Narrative: General: Obese, chronically ill-appearing 62-year-old female, sitting up in bed, comfortable, NARD Neuro: awake, alert and oriented x2, speech clear, no focal neuro deficits noted HEENMT: normocephalic, atraumatic, EOMI, sclerae anicteric Respiratory: clear to auscultation bilaterally, nonlabored breathing Cardio: regular rate, reg
--- NOTE | 2022-08-14 12:47 | WPDURCON ---
Assessment and Plan Assessment and plan (1) UTI (urinary tract infection): Code(s): N39.0 - Urinary tract infection, site not specified Status: Acute Assessment and Plan: Increase water intake, resume prophylaxis after treatment of this UTI. Continue IV antibiotics, tailor to culture results. No further evaluation at this time. Ok to discharge when cultures result. No etiology on CT for chronic UTI's, likely a combination of non compliance with antibiotics and dehydration. Urology Consult Note HPI Date Seen: 08/14/22 Time Seen: 12:47 Requesting Physician: Dahiana Wright PA-C Primary Care Provider: Dion Gunn MD Consult Narrative Reason for consult: Chronic UTI Narrative: Judy Panchal is a 62 year old female who was transferred from [facility] as a direct admit for treatment of her UTI. She was being treated at home for a persistent UTI with Ciprofloxacin and Keflex, which didn't improve her symptoms and she continued to experience hematuria, frequency, dysuria, urgency and cloudy urine for the past two weeks. She states that she normally takes Nitrofurantoin prophylaxis but held this dose during the treatment of her Ciprofloxacin and Keflex. She states that she doesn't drink water nearly as often as she should and she realizes this contributes to her frequent UTI's. She is also A&O x1-2 today and is non compliant with her antibiotics, which makes them difficult to treat at home. She had a CT scan which was urologically normal except showing some mild cystitis. She has blood and urine cultures pending, WBC is 7.4, creatinine 0.70, UA is suggestive of a UTI. Review of Systems Respiratory: Respiratory: Reports no additional respiratory complaints Gastrointestinal: Gastrointestinal: Denies abdominal pain, Denies nausea and Denies vomiting Genitourinary: Genitourinary: Reports no additional female genitourinary complaints [facility] Past Medical History Medical History Acid reflux Anxiety Anxiety and depression Arthritis Asthma CHF (congestive heart failure), NYHA class I CHF exacerbation COPD (chronic obstructive pulmonary disease) Deviated septum Diabetes Heart disease Hyperlipidemia Hypertension Thyroid disorder Surgical History Surgical History History of dilation and curettage History of sinus surgery History of tonsillectomy and adenoidectomy Family History Family History Father Hypertension Heart disease Skin cancer Mother Asthma Diabetes mellitus Hypertension Depression Heart disease Thyroid disorder Sibling Asthma Diabetes mellitus Hypertension Depression Heart disease Son Depression Other Family history of arthritis Family history of chronic obstructive pulmonary disease Family history of mental disorder Social History Social History Social History: The patient is and lives with her . She is retired from the [employer] [place]. She is a former smoker. She has 1 child. Code status full code Smoking packs per day: 1 Smoking cigarettes per day: 20.0 Years smoked: 6 Smoking pack-years: 6.00 Smoking status: Former smoker Tobacco type: cigarettes Second hand tobacco smoke exposure: No Alcohol intake: current Drinks per week: 2 Substance use: never Substance use type: does not use Lack of Transportation: No Lack of Food: Never True Current Housing: I Have Housing Concerned About Future Housing: No Difficulty Paying Gas/Electric Bills: No Difficulty Paying for Meds: No Currently Unemployed: No Education: High School Diploma/GED Difficulty w/ Childcare or Family Care: No Living arrangements: with family Occupation/Education: retired Gender identity
[2022-08-14 13:47] LABS: Glucose Point of Care 164 mg/dl (65-105)
[2022-08-14 15:24] LABS: Glucose Point of Care 124 mg/dl (65-105)
[2022-08-14 16:32] LABS: Glucose Point of Care 172 mg/dl (65-105)
[2022-08-14] MEDS: FLUTICASONE/SALMETEROL 115-21 MCG INHALER 1 PUFF 2 PUFF INHALATION (21:06)
[2022-08-15] VITALS (7 sets, daily range): BP systolic 122–139; BP diastolic 56–74; PULSE 63–73; RESP 16–20; TEMP 36.7–37.2; O2SAT 91–95
[2022-08-15] MEDS: LEVOTHYROXINE SODIUM 100 MCG TABLET PO (04:30)
[2022-08-15] MEDS: LEVOTHYROXINE SODIUM 75 MCG TABLET PO (04:30)
[2022-08-15] MEDS: FLUTICASONE/SALMETEROL 115-21 MCG INHALER 1 PUFF 2 PUFF INHALATION ×2 (07:49→21:46)
[2022-08-15 08:17] LABS: Glucose Point of Care 126 mg/dl (65-105)
[2022-08-15 08:18] LABS: Glucose Point of Care 122 mg/dl (65-105)
[2022-08-15] MEDS: DULoxetine HCL 30 MG CAPSULE.DR 90 MG PO (08:29)
[2022-08-15] MEDS: ISOSORBIDE MONONITRATE 30 MG TAB.ER.24H PO (08:29)
[2022-08-15] MEDS: RANOLAZINE 500 MG TAB.ER.12H 1000 MG PO ×2 (08:29→18:11)
[2022-08-15] MEDS: BENZTROPINE MESYLATE 0.5 MG TABLET PO ×2 (08:29→18:12)
[2022-08-15] MEDS: POTASSIUM CHLORIDE 20 MEQ ER TABLET 40 MEQ PO ×2 (08:30→18:12)
[2022-08-15] MEDS: TORSEMIDE 20 MG TABLET 40 MG PO (08:30)
[2022-08-15] MEDS: ASPIRIN 81 MG ENTERIC TABLET PO (08:30)
[2022-08-15] MEDS: lamoTRIgine 100 MG TABLET PO (08:30)
[2022-08-15] MEDS: CYANOCOBALAMIN 1,000 MCG TABLET 1000 MCG PO (08:30)
[2022-08-15] MEDS: CHOLECALCIFEROL 1,000 UNITS TABLET 2000 UNITS PO (08:30)
[2022-08-15] MEDS: FAMOTIDINE 20 MG TABLET PO ×2 (08:30→18:11)
[2022-08-15] MEDS: cloNIDine HCL 0.2 MG TABLET PO ×2 (08:30→18:11)
[2022-08-15] MEDS: FLUTICASONE PROPIONATE 0.05% NA SPR 16 GM BTL (*BKC) 1 SPRAY NASAL (08:30)
[2022-08-15] MEDS: risperiDONE 1 MG TABLET 2 MG PO ×2 (08:30→20:47)
[2022-08-15] MEDS: LOSARTAN POTASSIUM 100 MG TABLET PO (08:30)
[2022-08-15] MEDS: DOCUSATE SODIUM 100 MG CAPSULE PO ×2 (08:30→18:11)
[2022-08-15] MEDS: TOLNAFTATE 1% POWDER 45 GM BTL 1 APPLIC TOPICAL ×2 (08:31→20:48)
[2022-08-15] MEDS: METOPROLOL TARTRATE 25 MG TABLET PO ×2 (08:34→20:48)
[2022-08-15 12:17] LABS: Glucose Point of Care 112 mg/dl (65-105)
--- NOTE | 2022-08-15 13:57 | PM.IMPN ---
Progress Note: A&P Assessment and Plan (1) UTI (urinary tract infection): Code(s): N39.0 - Urinary tract infection, site not specified Status: Acute Assessment and Plan: Urine culture with growth of E coli. Blood cultures pending, negative to date. Patient remains afebrile, no leukocytosis. Continue IV Rocephin. Patient has reportedly had multiple UTIs, recently treated with Cipro and Keflex. Also reportedly on prophylactic therapy with Macrobid which was discontinued 2 weeks ago. Patient was transferred from [facility] for Urology consultation, recommendations are appreciated. Plan to resume prophylaxis following treatment of UTI. Patient instructed to increase oral hydration (2) Acute alteration in mental status: Code(s): R41.82 - Altered mental status, unspecified Status: Acute Assessment and Plan: A&O x3. Head CT with no acute findings. Likely secondary to urinary tract infection. Patient seems to be closer to her baseline at this time (3) Hypothyroidism: Code(s): E03.9 - Hypothyroidism, unspecified Status: Acute Assessment and Plan: TSH markedly elevated, 10.3. Free T4 is within normal limits, 1.97. Total T3 slightly decreased, 0.83. Pt reports her adminsters her meds to her. Spoke with , Milton, who reports has been regularly taking with no missed doses. States thyroid is managed by PCP and has had to have dose adjusted up and down several times, states last time was over 1 year ago. Discussed adjusting dose now vs outpt follow up and repeat labs in 1-2 weeks. Pt request dose adjustment at this time with subsequent outpt follow up. Will increase levothyroxine to 200 mcg daily. Will need repeat TSH in 4-6 weeks with PCP. (4) Obstructive sleep apnea: Code(s): G47.33 - Obstructive sleep apnea (adult) (pediatric) Status: Acute Assessment and Plan: Patient is noncompliant with CPAP (5) Hypertension: Code(s): I10 - Essential (primary) hypertension Status: Acute Assessment and Plan: Blood pressures are stable. Continue home antihypertensives, clonidine, isosorbide, losartan, metoprolol, torsemide (6) Type 2 diabetes mellitus: Code(s): E11.9 - Type 2 diabetes mellitus without complications Status: Acute Assessment and Plan: A1c is 6.1. Blood sugars are controlled at this time. Continue with Accu-Cheks, sliding scale insulin, hypoglycemic protocol. Continue home Tomas (7) CHF (congestive heart failure), NYHA class I: Code(s): I50.9 - Heart failure, unspecified Status: Acute Assessment and Plan: Diastolic CHF. Echo completed this admission showed EF 70% with grade 2 diastolic dysfunction. CXR on presentation showed pulmonary vascular congestion. BNP well within normal limits. Does not appear to be in acute exacerbation at this time. Continue home medications. Monitor volume status Plan Planning for SNF following discharge. Appreciate care coordination recommendations Time Spent With Patient Time: 50 minutes Subjective Date/time seen: 08/15/22 13:57 Interval history: Date of service: 08/14/2022 Judy Panchal is a 62-year-old female with a history of CHF, COPD, hypertension, CAD, and frequent UTI who is seen in follow-up for altered mental status, felt to be secondary to UTI. She is feeling better today. She still endorses some confusion but feels overall improved. She denies urinary symptoms including dysuria, hematuria, urgency, or frequency. She has no additional complaints at this time. She is oriented to self, consider date of , age, the month, year, and president. She knows she is at a hospital but thought she was in [place]. Review of Systems Review of Systems: All systems reviewed & are unremarkable except as noted in HPI and below Exam Narrative: General: Obese, chronically ill-appear
[2022-08-15 17:19] LABS: Glucose Point of Care 122 mg/dl (65-105)
[2022-08-15 20:41] LABS: Glucose Point of Care 142 mg/dl (65-105)
[2022-08-15] MEDS: ROSUVASTATIN 10 MG TABLET 20 MG PO (20:46)
[2022-08-15] MEDS: traZODone HCL 50 MG TABLET 200 MG PO (20:46)
[2022-08-15] MEDS: lamoTRIgine 100 MG TABLET 200 MG PO (20:47)
[2022-08-16] VITALS (8 sets, daily range): BP systolic 108–118; BP diastolic 50–95; PULSE 62–70; RESP 18; TEMP 36.5–36.9; O2SAT 92–98
[2022-08-16 04:20] LABS: Hematocrit 41.9 % (37.0-47.0); Hemoglobin 13.1 g/dL (12.0-15.0); Mean Corpuscular HGB Conc 31.3 g/dl (32-36); Mean Corpuscular Hemoglobin 30.9 pg (26-34); Mean Corpuscular Volume 98.8 fl (80-100); Mean Platelet Volume 9.7 fl (7.4-10.4); Platelet Count Result 247 k/mm3 (150-375); Red Blood Count 4.24 M/mm3 (4.2-5.4); Red Cell Distribution Width 14.1 % (11.5-14.5); White Blood Count 7.7 K/mm3 (4.5-10.0)
[2022-08-16 04:37] LABS: Blood Urea Nitrogen 19 mg/dL (7-17); Calcium 7.6 mg/dL (8.4-10.2); Carbon Dioxide > 40 mmol/L (22-30); Chloride 92 mmol/L (98-107); Estimated CRCL calculation 56 ml/min; Estimated Glomerular Filt Rate 50; Glucose 114 mg/dL (65-110); Potassium 4.4 mmol/L (3.4-5.0); Sodium 134 mmol/L (137-145)
[2022-08-16] MEDS: LEVOTHYROXINE SODIUM 75 MCG TABLET PO (05:55)
[2022-08-16] MEDS: LEVOTHYROXINE SODIUM 100 MCG TABLET PO (05:55)
[2022-08-16] MEDS: FLUTICASONE/SALMETEROL 115-21 MCG INHALER 1 PUFF 2 PUFF INHALATION ×2 (07:53→21:10)
[2022-08-16 08:08] LABS: Glucose Point of Care 124 mg/dl (65-105)
[2022-08-16] MEDS: DULoxetine HCL 30 MG CAPSULE.DR 90 MG PO (09:28)
[2022-08-16] MEDS: FLUTICASONE PROPIONATE 0.05% NA SPR 16 GM BTL (*BKC) 1 SPRAY NASAL (09:28)
[2022-08-16] MEDS: DOCUSATE SODIUM 100 MG CAPSULE PO ×3 (09:28→17:39)
[2022-08-16] MEDS: FAMOTIDINE 20 MG TABLET PO ×2 (09:28→17:39)
[2022-08-16] MEDS: BENZTROPINE MESYLATE 0.5 MG TABLET PO ×2 (09:29→17:39)
[2022-08-16] MEDS: ASPIRIN 81 MG ENTERIC TABLET PO (09:29)
[2022-08-16] MEDS: cloNIDine HCL 0.2 MG TABLET PO ×2 (09:29→17:39)
[2022-08-16] MEDS: ISOSORBIDE MONONITRATE 30 MG TAB.ER.24H PO (09:29)
[2022-08-16] MEDS: CHOLECALCIFEROL 1,000 UNITS TABLET 2000 UNITS PO (09:29)
[2022-08-16] MEDS: CYANOCOBALAMIN 1,000 MCG TABLET 1000 MCG PO (09:29)
[2022-08-16] MEDS: RANOLAZINE 500 MG TAB.ER.12H 1000 MG PO ×2 (09:30→17:39)
[2022-08-16] MEDS: LOSARTAN POTASSIUM 100 MG TABLET PO (09:30)
[2022-08-16] MEDS: risperiDONE 1 MG TABLET 2 MG PO ×2 (09:30→21:33)
[2022-08-16] MEDS: POTASSIUM CHLORIDE 20 MEQ ER TABLET 40 MEQ PO ×2 (09:30→17:39)
[2022-08-16] MEDS: lamoTRIgine 100 MG TABLET PO (09:30)
[2022-08-16] MEDS: TORSEMIDE 20 MG TABLET 40 MG PO (09:30)
[2022-08-16] MEDS: METOPROLOL TARTRATE 25 MG TABLET PO ×2 (09:33→21:27)
[2022-08-16] MEDS: TOLNAFTATE 1% POWDER 45 GM BTL 1 APPLIC TOPICAL ×2 (09:34→21:36)
[2022-08-16 12:09] LABS: Glucose Point of Care 101 mg/dl (65-105)
--- NOTE | 2022-08-16 12:42 | PC.NURSE ---
Call from Patti ER nurse at [facility] called with urine culture results. Isha. They gave pt one dose of cefepime in ER. Hospitalist made aware.
--- NOTE | 2022-08-16 15:06 | PM.IMPN ---
Progress Note: A&P Assessment and Plan (1) UTI (urinary tract infection): Code(s): N39.0 - Urinary tract infection, site not specified Status: Acute Assessment and Plan: Urine culture with growth of E coli. Blood cultures pending, negative to date. Patient remains afebrile, no leukocytosis. Received IV ceftriaxone which is susceptible based on results. Will transition to oral cefdinir at this time Patient has reportedly had multiple UTIs, recently treated with Cipro and Keflex. Also reportedly on prophylactic therapy with Macrobid which was discontinued 2 weeks ago. Patient was transferred from [facility] for Urology consultation, recommendations are appreciated. Plan to resume prophylaxis following treatment of UTI. Patient instructed to increase oral hydration (2) Acute alteration in mental status: Code(s): R41.82 - Altered mental status, unspecified Status: Acute Assessment and Plan: A&O x3. She answers all questions correctly, but thinks that she is in [place] Head CT with no acute findings. Likely secondary to urinary tract infection. Patient seems to be back to her baseline mental status at this time (3) Hypothyroidism: Code(s): E03.9 - Hypothyroidism, unspecified Status: Acute Assessment and Plan: TSH markedly elevated, 10.3. Free T4 is within normal limits, 1.97. Total T3 slightly decreased, 0.83. Reportedly has been taking levothyroxine appropriately, no missed doses Discussed up titrating levothyroxine versus repeat labs in 4-6 weeks with both her and with my supervising physician Given normal T4, will hold off on making any adjustments at this time. Continue levothyroxine at current dose Will need repeat TSH in 4-6 weeks as an outpatient (4) Obstructive sleep apnea: Code(s): G47.33 - Obstructive sleep apnea (adult) (pediatric) Status: Acute Assessment and Plan: Patient is noncompliant with CPAP Did have an episode of desaturation while sleeping last night, placed on 2 L supplemental O2. Maintaining adequate O2 sats on room air at this time Strict compliance with CPAP imperative (5) Hypertension: Code(s): I10 - Essential (primary) hypertension Status: Acute Assessment and Plan: Blood pressures are stable. Continue home antihypertensives, clonidine, isosorbide, losartan, metoprolol, torsemide (6) Type 2 diabetes mellitus: Code(s): E11.9 - Type 2 diabetes mellitus without complications Status: Acute Assessment and Plan: A1c is 6.1. Blood sugars are controlled at this time. Continue with Accu-Cheks, sliding scale insulin, hypoglycemic protocol. Continue home [place]orin (7) CHF (congestive heart failure), NYHA class I: Code(s): I50.9 - Heart failure, unspecified Status: Acute Assessment and Plan: Diastolic CHF. Echo completed this admission showed EF 70% with grade 2 diastolic dysfunction. CXR on presentation showed pulmonary vascular congestion. BNP well within normal limits. Does not appear to be in acute exacerbation at this time. Continue home medications. Monitor volume status Plan Planning for SNF following discharge. Appreciate care coordination recommendations Episode yesterday with concerns of vaginal bleeding noted once. No further issues and H&H remains stable. May have been due to pure wick catheter causing irritation, this was discontinued. Consider pelvic ultrasound if persistent Subjective Date/time seen: 08/16/22 15:06 Interval history: Date of service: 08/16/2022 Judy Panchal is a 62-year-old female with a history of CHF, COPD, hypertension, CAD, and frequent UTI who is seen in follow-up for altered mental status, felt to be secondary to UTI. She is doing well today. Offers no complaints. Denies shortness of breath, cough, chest pain. Appetite is good. No nausea, vomiting, fever, chills
[2022-08-16 17:01] LABS: Glucose Point of Care 123 mg/dl (65-105)
[2022-08-16] MEDS: QUEtiapine FUMARATE XR 50 MG TAB.ER.24H 150 MG PO (21:34)
[2022-08-16] MEDS: lamoTRIgine 100 MG TABLET 200 MG PO (21:34)
[2022-08-16] MEDS: CEFDINIR 300 MG CAPSULE PO (21:34)
[2022-08-16] MEDS: traZODone HCL 50 MG TABLET 200 MG PO (21:35)
[2022-08-16] MEDS: ROSUVASTATIN 10 MG TABLET 20 MG PO (21:35)
[2022-08-16 22:13] LABS: Glucose Point of Care 163 mg/dl (65-105)
[2022-08-17] VITALS (8 sets, daily range): BP systolic 101–108; BP diastolic 53–62; PULSE 60–80; RESP 14–18; TEMP 36.1–36.2; O2SAT 95–99
[2022-08-17] MEDS: LEVOTHYROXINE SODIUM 100 MCG TABLET PO (05:56)
[2022-08-17] MEDS: LEVOTHYROXINE SODIUM 75 MCG TABLET PO (05:56)
[2022-08-17 06:45] LABS: Blood Urea Nitrogen 21 mg/dL (7-17); Calcium 7.6 mg/dL (8.4-10.2); Carbon Dioxide > 40 mmol/L (22-30); Chloride 92 mmol/L (98-107); Estimated CRCL calculation 56 ml/min; Estimated Glomerular Filt Rate 50; Glucose 108 mg/dL (65-110); Potassium 4.4 mmol/L (3.4-5.0); Sodium 135 mmol/L (137-145)
[2022-08-17 08:16] LABS: Glucose Point of Care 125 mg/dl (65-105)
[2022-08-17] MEDS: FLUTICASONE/SALMETEROL 115-21 MCG INHALER 1 PUFF 2 PUFF INHALATION ×2 (08:54→21:30)
[2022-08-17] MEDS: BENZTROPINE MESYLATE 0.5 MG TABLET PO ×2 (09:49→17:25)
[2022-08-17] MEDS: CEFDINIR 300 MG CAPSULE PO ×2 (09:49→20:56)
[2022-08-17] MEDS: POTASSIUM CHLORIDE 20 MEQ ER TABLET 40 MEQ PO ×2 (09:49→17:24)
[2022-08-17] MEDS: ISOSORBIDE MONONITRATE 30 MG TAB.ER.24H PO (09:49)
[2022-08-17] MEDS: TORSEMIDE 20 MG TABLET 40 MG PO (09:49)
[2022-08-17] MEDS: DULoxetine HCL 30 MG CAPSULE.DR 90 MG PO (09:50)
[2022-08-17] MEDS: CYANOCOBALAMIN 1,000 MCG TABLET 1000 MCG PO (09:50)
[2022-08-17] MEDS: METOPROLOL TARTRATE 25 MG TABLET PO ×2 (09:50→20:56)
[2022-08-17] MEDS: ASPIRIN 81 MG ENTERIC TABLET PO (09:52)
[2022-08-17] MEDS: FAMOTIDINE 20 MG TABLET PO ×2 (09:52→17:24)
[2022-08-17] MEDS: DOCUSATE SODIUM 100 MG CAPSULE PO ×3 (09:52→17:23)
[2022-08-17] MEDS: cloNIDine HCL 0.2 MG TABLET PO ×2 (09:52→17:25)
[2022-08-17] MEDS: LOSARTAN POTASSIUM 100 MG TABLET PO (09:53)
[2022-08-17] MEDS: CHOLECALCIFEROL 1,000 UNITS TABLET 2000 UNITS PO (09:53)
[2022-08-17] MEDS: RANOLAZINE 500 MG TAB.ER.12H 1000 MG PO ×2 (09:53→17:27)
[2022-08-17] MEDS: risperiDONE 1 MG TABLET 2 MG PO ×2 (09:54→20:56)
[2022-08-17] MEDS: FLUTICASONE PROPIONATE 0.05% NA SPR 16 GM BTL (*BKC) 1 SPRAY NASAL (09:55)
[2022-08-17] MEDS: TOLNAFTATE 1% POWDER 45 GM BTL 1 APPLIC TOPICAL ×2 (09:57→21:00)
[2022-08-17 12:10] LABS: Glucose Point of Care 159 mg/dl (65-105)
[2022-08-17] MEDS: lamoTRIgine 100 MG TABLET PO (12:44)
--- NOTE | 2022-08-17 14:05 | PM.DS ---
DS: Admitting Diagnosis Discharge Date 08/17/2022 Admitting Diagnosis Altered mental status DS: Discharge Diagnosis Discharge Diagnosis (1) UTI (urinary tract infection): Code(s): N39.0 - Urinary tract infection, site not specified Status: Acute Assessment and Plan: Urine culture with growth of E coli. Blood cultures pending, negative to date. Patient remained afebrile, no leukocytosis. Received IV ceftriaxone which is susceptible based on results. Transitioned to p.o. cefdinir which she will continue as an outpatient to complete a 7 day course of antibiotics Patient has reportedly had multiple UTIs, recently treated with Cipro and Keflex. Also reportedly on prophylactic therapy with Macrobid which was discontinued 2 weeks ago. Patient was transferred from [facility] for Urology consultation. She was seen by Urology during admission who recommended adequate oral hydration and restarting prophylactic therapy following completion of antibiotics Prescription provided for 1 month course of nitrofurantoin 50 mg daily. Renal function noted. Patient will need close continued monitoring by her PCP and urologist. (2) Acute alteration in mental status: Code(s): R41.82 - Altered mental status, unspecified Status: Resolved Assessment and Plan: Patient presented with significant confusion, felt to be secondary to urinary tract infection Mental status improved, patient returned to her baseline Head CT with no acute findings. (3) Hypothyroidism: Code(s): E03.9 - Hypothyroidism, unspecified Status: Acute Assessment and Plan: TSH markedly elevated, 10.3. Free T4 is within normal limits, 1.97. Total T3 slightly decreased, 0.83. Reportedly has been taking levothyroxine appropriately, no missed doses Given normal T4, will hold off on dose adjustment at this time. Continue levothyroxine at current dose Will need repeat TSH in 4-6 weeks as an outpatient (4) Obstructive sleep apnea: Code(s): G47.33 - Obstructive sleep apnea (adult) (pediatric) Status: Acute Assessment and Plan: Patient is noncompliant with CPAP Strict compliance with CPAP is imperative (5) Hypertension: Code(s): I10 - Essential (primary) hypertension Status: Acute Assessment and Plan: Blood pressures remained stable. Continue home antihypertensives, clonidine, isosorbide, losartan, metoprolol, torsemide (6) Type 2 diabetes mellitus: Code(s): E11.9 - Type 2 diabetes mellitus without complications Status: Acute Assessment and Plan: A1c is 6.1. Blood sugars stable Continue home Tomas (7) CHF (congestive heart failure), NYHA class I: Code(s): I50.9 - Heart failure, unspecified Status: Acute Assessment and Plan: Diastolic CHF. Echo completed this admission showed EF 70% with grade 2 diastolic dysfunction. CXR on presentation showed pulmonary vascular congestion. BNP well within normal limits Not in acute exacerbation Continue home medications DS: Summary Hospital Course Hospital Course: Judy Panchal is 62-year-old female a history of?CHF, COPD, hypertension, CAD, and frequent UTI who presented to [facility] on 08/13/22 with concerns for recurrent urinary tract infection. She was transferred to [facility] where she was seen in consultation by Urology. Please see above for further details. Patient was treated appropriately for UTI and will continue with prophylaxis as an outpatient. She will then follow-up with urology for continued monitoring. Her mental status returned to baseline. She participated in PT/OT during admission and will continue therapy at SNF. Patient was back to her baseline state of health and determined to no longer require inpatient care. She was discharged in hemodynamically stable condition on 08/19/2022. Time Spent with Patient Time attestation: Total
[2022-08-17 17:20] LABS: Glucose Point of Care 116 mg/dl (65-105)
[2022-08-17 20:45] LABS: Glucose Point of Care 88 mg/dl (65-105)
[2022-08-17] MEDS: traZODone HCL 50 MG TABLET 200 MG PO (20:55)
[2022-08-17] MEDS: QUEtiapine FUMARATE XR 50 MG TAB.ER.24H 150 MG PO (20:55)
[2022-08-17] MEDS: lamoTRIgine 100 MG TABLET 200 MG PO (20:56)
[2022-08-17] MEDS: ROSUVASTATIN 10 MG TABLET 20 MG PO (20:56)
== END 2022-08-17 14:05 | DRG 690 ==
PROVIDERS: Internal Medicine Critical Care Medicine; Nurse Practitioner; Admitting Provider Internal Medicine; PCP Family Medicine; Visit Provider Physician Assistant
DX: N39.0 Urinary tract infection, site not specified (principal); I50.32 Chronic diastolic (congestive) heart failure; Z68.43 Body mass index [BMI] 50.0-59.9, adult; B96.20 Unspecified Escherichia coli [E. coli] as the cause of diseases classified elsewhere; E03.9 Hypothyroidism, unspecified; G47.33 Obstructive sleep apnea (adult) (pediatric); I11.0 Hypertensive heart disease with heart failure; E11.9 Type 2 diabetes mellitus without complications; J44.9 Chronic obstructive pulmonary disease, unspecified; K21.9 Gastro-esophageal reflux disease without esophagitis; F41.8 Other specified anxiety disorders; I25.10 Atherosclerotic heart disease of native coronary artery without angina pectoris; R32 Unspecified urinary incontinence; E86.0 Dehydration; M19.90 Unspecified osteoarthritis, unspecified site; Z91.148 Patient's other noncompliance with medication regimen for other reason; Z87.891 Personal history of nicotine dependence; E66.9 Obesity, unspecified
CPT/HCPCS: 36415; 80048; 80053; 82948; 83036; 83605; 83735; 84439; 84443; 84480; 85025; 85027; 87040; 93306; 93970; 94640; 97110; 97161; 97165; 97530; 97535; A9270; G0378; G0379; J0696

== ENCOUNTER 2022-08-18 18:26 | Emergency (ER) | payer MEDICARE, OTHER, SELFPAY ==
--- NOTE | ~2022-08-18 | CT_ITS ---
Non-contrast Head CT History: Head injury COMPARISON: 08/13/2022 Technique: Axial non-contrast imaging of the brain was performed. Dose reduction technique was used on this scan by utilizing automated exposure control and iterative reconstruction technique. The dose -length product (DLP) was 681.00 mGy-cm. Findings: There is no evidence of intracranial hemorrhage, mass lesion, or acute infarct. Brain par enchyma appears normal. The ventricles and subarachnoid spaces are normal in size. The calvarium ap pears normal. The visualized paranasal sinuses and mastoid air cells are clear. Impression: No significant abnormality seen. Reviewed, dictated and finalized at location . Impression: No significant abnormality seen.
[2022-08-18 18:27] VITALS: BP 142/70; PULSE 87; RESP 18; TEMP 36.7; O2SAT 93
--- NOTE | 2022-08-18 19:17 | ED.FALL ---
HPI - Fall General Chief Complaint: Fall Stated Complaint: FELL AT 0800 THIS AM (TAKES 81MG ASA) Time Seen by Provider: 08/18/22 18:43 Source: patient, EMS and RN notes reviewed Mode of arrival: EMS Limitations: dementia History of Present Illness HPI Narrative: This is a 62 year old female who presents from [facility] for evaluation of fall. Patient states she was trying to walk when she felt that she was going to fall so she slid down to her knees. Nursing reports this fall occurred this morning but she was sent due to [place] policy. Patient has no complaints. She states she does not think she hit her head. Patient also tells me that she is here because she needs to be placed in longterm. Patient was discharged from [facility] yesterday after treatment of UTI with urology consult. Related Data Home Medications Medication Instructions Recorded Confirmed albuterol sulfate 90 mcg/actuation 2 puff inhalation Q4H PRN 07/26/20 08/13/22 aerosol inhaler Shortness Of Breath cholecalciferol (vitamin D3) 25 50 mcg PO DAILY 07/26/20 08/13/22 mcg (1,000 unit) capsule clonidine HCl 0.2 mg tablet 0.2 mg PO BID 07/26/20 08/13/22 docusate sodium 100 mg capsule 100 mg PO TID 07/26/20 08/13/22 (Colace) famotidine 20 mg tablet 20 mg PO BID 07/26/20 08/13/22 fluticasone propionate 50 1 spray intranasal DAILY 07/26/20 08/13/22 mcg/actuation nasal spray,suspension losartan 100 mg tablet 100 mg PO DAILY 07/26/20 08/13/22 potassium chloride 20 mEq 40 meq PO BID 07/26/20 08/13/22 tablet,extended release ranolazine 500 mg tablet,extended 1,000 mg PO BID 07/26/20 08/13/22 release,12 hr risperidone 4 mg tablet 2 mg PO HS 07/26/20 08/13/22 trazodone 100 mg tablet 200 mg PO HS 07/26/20 08/13/22 cyanocobalamin (vitamin B-12) 1,000 mcg PO DAILY 11/12/20 08/13/22 1,000 mcg capsule duloxetine 30 mg capsule,delayed 90 mg PO DAILY 11/12/20 08/13/22 release fluocinolone acetonide oil 0.01 % 3 - 5 drp EACH EAR BID PRN Itching 11/12/20 08/13/22 ear drops isosorbide mononitrate 30 mg 30 mg PO DAILY 11/12/20 08/13/22 tablet,extended release 24 hr lamotrigine 100 mg tablet 100 mg PO QAM 11/12/20 08/13/22 lamotrigine 100 mg tablet 200 mg PO HS 11/12/20 08/13/22 metoprolol tartrate 25 mg tablet 25 mg PO Q12H 11/12/20 08/13/22 nitroglycerin 0.4 mg sublingual 0.4 mg sublingual Q5M PRN Chest 11/12/20 08/13/22 tablet Pain rosuvastatin 20 mg tablet 20 mg PO HS 11/12/20 08/13/22 sitagliptin phosphate 100 mg 50 mg PO DAILY 11/12/20 08/13/22 tablet (Januvia) torsemide 20 mg tablet 40 mg PO DAILY 11/12/20 08/13/22 aspirin 81 mg tablet 81 mg PO DAILY 09/07/21 08/13/22 fluticasone 250 mcg-salmeterol 50 1 inh inhalation Q12H 09/07/21 08/13/22 mcg/dose blistr powdr for inhalation (Advair Diskus) levothyroxine 175 mcg tablet 175 mcg PO DAILY 09/07/21 08/13/22 loratadine 10 mg tablet (Claritin) 10 mg PO DAILY PRN Allergy Symptoms 09/07/21 08/13/22 acetaminophen 500 mg tablet 1,000 mg PO Q6H PRN Pain (Scale 08/13/22 08/13/22 Score 1-3) benztropine 0.5 mg tablet 0.5 mg PO BID 08/13/22 08/13/22 quetiapine 150 mg tablet 150 mg PO DAILY 08/13/22 08/13/22 Allergies Allergy/AdvReac Type Severity Reaction Status Date / Time dapagliflozin [From [facility]] Allergy Intermediate Unknown Verified 08/13/22 16:59 Penicillins Allergy Unknown Unknown Verified 08/13/22 16:59 Sulfa (Sulfonamide Allergy Unknown Unknown Verified 08/13/22 16:59 Antibiotics) Review of Systems Constitutional: Constitutional: Denies weakness Cardiovascular: Cardiovascular: Denies syncope, Denies rapid heart rate, Denies irregular heart rhythm, Denies leg edema and Denies dyspnea Respiratory: Respiratory: Denies chest congestion, Denies hemoptysis, Denies excessive phlegm production and Denies dyspnea Gastrointestinal: Gastrointestinal: Denies abdominal pain, Denies hematochezia, Denies diarrhea and Denies vomiting Genitourinary: Genitourinary: Denie
== END 2022-08-18 20:58 ==
PROVIDERS: Emergency Provider General Practice; PCP Family Medicine
DX: S09.90XA Unspecified injury of head, initial encounter (principal); W19.XXXA Unspecified fall, initial encounter; K21.9 Gastro-esophageal reflux disease without esophagitis; J44.9 Chronic obstructive pulmonary disease, unspecified; E11.9 Type 2 diabetes mellitus without complications; E78.5 Hyperlipidemia, unspecified; Z79.82 Long term (current) use of aspirin; J45.909 Unspecified asthma, uncomplicated; I50.9 Heart failure, unspecified; I11.0 Hypertensive heart disease with heart failure; Z87.891 Personal history of nicotine dependence
CPT/HCPCS: 70450; 99284

== ENCOUNTER 2023-12-10 14:44 | Emergency (ER) | payer MEDICARE, OTHER, SELFPAY ==
[2023-12-10 14:54] VITALS: BP 114/85; PULSE 100; RESP 20; TEMP 37.1; O2SAT 94
--- NOTE | 2023-12-10 15:05 | ED.WOUNDLAC ---
HPI - Wound/Laceration General Chief Complaint: Wound/Laceration Stated Complaint: FALL Time Seen by Provider: 12/10/23 14:51 Source: patient Mode of arrival: ambulatory Limitations: no limitations History of Present Illness HPI narrative: 63-year-old multiple medical including bilateral leg swelling/ lymphedema, on Eliquis was attempting to transfer from the wheelchair into the car. Wheelchair slid and left wiggins hit the edge of the car and she sustained -- 1.5 cm laceration over the left wiggins. Surrounding that she has a small area with superficial skin loss. No other injuries noted. No head injury. Onset (ago): hour(s) ( 1 hour ago) Location: other ( left lower extremity) Extremity Location: Left: lower leg Body four view annotation: 1. superficial skin loss 2. 1.5 cm full-thickness laceration Place: outdoors Patient tetanus UTD: No Context: accidental Associated symptoms: pain Related Data Home Medications Medication Instructions Recorded Confirmed albuterol sulfate 90 mcg/actuation 2 puff inhalation Q4H PRN 07/26/20 08/13/22 aerosol inhaler Shortness Of Breath cholecalciferol (vitamin D3) 25 50 mcg PO DAILY 07/26/20 08/13/22 mcg (1,000 unit) capsule clonidine HCl 0.2 mg tablet 0.2 mg PO BID 07/26/20 08/13/22 docusate sodium 100 mg capsule 100 mg PO TID 07/26/20 08/13/22 (Colace) famotidine 20 mg tablet 20 mg PO BID 07/26/20 08/13/22 fluticasone propionate 50 1 spray intranasal DAILY 07/26/20 08/13/22 mcg/actuation nasal spray,suspension losartan 100 mg tablet 100 mg PO DAILY 07/26/20 08/13/22 potassium chloride 20 mEq 40 meq PO BID 07/26/20 08/13/22 tablet,extended release ranolazine 500 mg tablet,extended 1,000 mg PO BID 07/26/20 08/13/22 release,12 hr risperidone 4 mg tablet 2 mg PO HS 07/26/20 08/13/22 trazodone 100 mg tablet 200 mg PO HS 07/26/20 08/13/22 cyanocobalamin (vitamin B-12) 1,000 mcg PO DAILY 11/12/20 08/13/22 1,000 mcg capsule duloxetine 30 mg capsule,delayed 90 mg PO DAILY 11/12/20 08/13/22 release fluocinolone acetonide oil 0.01 % 3 - 5 drp EACH EAR BID PRN Itching 11/12/20 08/13/22 ear drops isosorbide mononitrate 30 mg 30 mg PO DAILY 11/12/20 08/13/22 tablet,extended release 24 hr lamotrigine 100 mg tablet 100 mg PO QAM 11/12/20 08/13/22 lamotrigine 100 mg tablet 200 mg PO HS 11/12/20 08/13/22 metoprolol tartrate 25 mg tablet 25 mg PO Q12H 11/12/20 08/13/22 nitroglycerin 0.4 mg sublingual 0.4 mg sublingual Q5M PRN Chest 11/12/20 08/13/22 tablet Pain rosuvastatin 20 mg tablet 20 mg PO HS 11/12/20 08/13/22 sitagliptin phosphate 100 mg 50 mg PO DAILY 11/12/20 08/13/22 tablet (Januvia) torsemide 20 mg tablet 40 mg PO DAILY 11/12/20 08/13/22 aspirin 81 mg tablet 81 mg PO DAILY 09/07/21 08/13/22 fluticasone 250 mcg-salmeterol 50 1 inh inhalation Q12H 09/07/21 08/13/22 mcg/dose blistr powdr for inhalation (Advair Diskus) levothyroxine 175 mcg tablet 175 mcg PO DAILY 09/07/21 08/13/22 loratadine 10 mg tablet (Claritin) 10 mg PO DAILY PRN Allergy Symptoms 09/07/21 08/13/22 acetaminophen 500 mg tablet 1,000 mg PO Q6H PRN Pain (Scale 08/13/22 08/13/22 Score 1-3) benztropine 0.5 mg tablet 0.5 mg PO BID 08/13/22 08/13/22 quetiapine 150 mg tablet 150 mg PO DAILY 08/13/22 08/13/22 Allergies Allergy/AdvReac Type Severity Reaction Status Date / Time dapagliflozin [From [facility]] Allergy Intermediate Unknown Verified 08/13/22 16:59 Penicillins Allergy Unknown Unknown Verified 08/13/22 16:59 Sulfa (Sulfonamide Allergy Unknown Unknown Verified 08/13/22 16:59 Antibiotics) Review of Systems Review of Systems: All systems reviewed & are unremarkable except as noted in HPI and below Constitutional: Constitutional: Reports as per HPI and Reports no additional constitutional complaints Eyes: Eyes: Reports as per HPI and Reports no additional eye complaints ENT: Reports system reviewed and no additional complaints, except as documented and Reports as per HPI
[2023-12-10] MEDS: TETANUS,DIPHTHERIA,AC PERTUSSIS ADULT 0.5 ML (ADACEL) IM (15:10)
== END 2023-12-10 15:31 | disposition home or self-care (01) ==
PROVIDERS: Emergency Provider Internal Medicine Critical Care Medicine; PCP Family Medicine
DX: S81.812A Laceration without foreign body, left lower leg, initial encounter (principal); I11.0 Hypertensive heart disease with heart failure; I50.9 Heart failure, unspecified; E11.9 Type 2 diabetes mellitus without complications; E78.5 Hyperlipidemia, unspecified; Z87.891 Personal history of nicotine dependence; Z23 Encounter for immunization; W45.8XXA Other foreign body or object entering through skin, initial encounter
CPT/HCPCS: 12001; 90471; 90715; 99282

== ENCOUNTER 2024-04-28 09:37 | Emergency (ER) | payer MEDICARE, SELFPAY ==
--- NOTE | 2024-04-28 09:43 | ED.FEMALEGU ---
HPI - Female Genitourinary General Chief complaint: GI Bleed Stated complaint: vaginal bleeding Time Seen by Provider: 04/28/24 09:43 Source: patient and EMS Mode of arrival: ambulatory Limitations: no limitations History of Present Illness HPI Narrative: 63-year-old female with a history of obesity, VAN, diabetes mellitus, dyslipidemia, asthma/ COPD, anxiety/ depression, arthritis hypothyroid, hypothyroidism, CKD, hypertension, CAD, Bipolar, recurrent urinary tract infection , Atrial fibrillation on Eliquispresents to the ED with -- blood in her depends. she had 1 bowel movement this morning following which she noted blood on the wipes. Patient has a history of hemorrhoids and hemorrhoidal bleeding in the past. No dysuria or hematuria. No vaginal discharge. On examining blood was noted on the diaper around her anal orifice. She has external hemorrhoids which currently not bleeding. Patient had a colonoscopy 5-7 years ago which was unremarkable. MD elicited complaint: other ( Bleeding from rectal hemorrhoids) Pertinent past history: recurrent UTIs Onset (ago): hour(s) ( 2 hours) Location of symptoms: external genitalia Related Data Home Medications ?Medication ?Instructions ?Recorded ?Confirmed ?Last Taken ?Type albuterol sulfate 90 mcg/actuation 2 puff inhalation Q4H PRN 07/26/20 08/13/22 Unknown History aerosol inhaler Shortness Of Breath cholecalciferol (vitamin D3) 25 50 mcg PO DAILY 07/26/20 08/13/22 Unknown History mcg (1,000 unit) capsule clonidine HCl 0.2 mg tablet 0.2 mg PO BID 07/26/20 04/28/24 Unknown History docusate sodium 100 mg capsule 100 mg PO TID 07/26/20 04/28/24 Unknown History (Colace) famotidine 20 mg tablet 20 mg PO BID 07/26/20 04/28/24 Unknown History fluticasone propionate 50 1 spray intranasal DAILY 07/26/20 04/28/24 Unknown History mcg/actuation nasal spray,suspension losartan 100 mg tablet 100 mg PO DAILY 07/26/20 08/13/22 Unknown History potassium chloride 20 mEq 40 meq PO BID 07/26/20 08/13/22 Unknown History tablet,extended release ranolazine 500 mg tablet,extended 1,000 mg PO BID 07/26/20 08/13/22 Unknown History release,12 hr risperidone 4 mg tablet 2 mg PO HS 07/26/20 08/13/22 Unknown History trazodone 100 mg tablet 200 mg PO HS 07/26/20 08/13/22 Unknown History cyanocobalamin (vitamin B-12) 1,000 mcg PO DAILY 11/12/20 08/13/22 Unknown History 1,000 mcg capsule duloxetine 30 mg capsule,delayed 90 mg PO DAILY 11/12/20 08/13/22 Unknown History release fluocinolone acetonide oil 0.01 % 3 - 5 drp EACH EAR BID PRN Itching 11/12/20 04/28/24 Unknown History ear drops isosorbide mononitrate 30 mg 30 mg PO DAILY 11/12/20 08/13/22 Unknown History tablet,extended release 24 hr lamotrigine 100 mg tablet 100 mg PO QAM 11/12/20 08/13/22 Unknown History lamotrigine 100 mg tablet 200 mg PO HS 11/12/20 08/13/22 Unknown History metoprolol tartrate 25 mg tablet 25 mg PO Q12H 11/12/20 08/13/22 Unknown History nitroglycerin 0.4 mg sublingual 0.4 mg sublingual Q5M PRN Chest 11/12/20 08/13/22 Unknown History tablet Pain rosuvastatin 20 mg tablet 20 mg PO HS 11/12/20 04/28/24 Unknown History sitagliptin phosphate 100 mg 50 mg PO DAILY 11/12/20 04/28/24 Unknown History tablet (Januvia) torsemide 20 mg tablet 40 mg PO DAILY 11/12/20 08/13/22 Unknown History aspirin 81 mg tablet 81 mg PO DAILY 09/07/21 04/28/24 Unknown History fluticasone 250 mcg-salmeterol 50 1 inh inhalation Q12H 09/07/21 04/28/24 Unknown History mcg/dose blistr powdr for inhalation (Advair Diskus) levothyroxine 175 mcg tablet 175 mcg PO DAILY 09/07/21 08/13/22 Unknown History loratadine 10 mg tablet (Claritin) 10 mg PO DAILY PRN Allergy Symptoms 09/07/21 08/13/22 Unknown History acetaminophen 500 mg tablet 1,000 mg PO Q6H PRN Pain (Scale 08/13/22 08/13/22 Unknown History Score 1-3) benztropine 0.5 mg tablet 0.5 mg PO BID 08/13/22 08/13/22 Unknown History quetiapine 150 mg tablet 150 mg PO DAILY 08/13/22 04/28/24 Unknown History Saccharomyces boulardii 250 mg 250 mg PO DAILY 04/28/24 Unknown History capsule (Daily Probiotic (S. boulardii)) alogliptin 12.5 mg tablet 12.5 mg PO DAILY 04/28/24 Unknown History apixaban 5 mg tablet (Eliquis) 5 mg PO BID 04/28/24 Unknown History atorvastatin 40 mg tablet (Lipitor) 40 mg PO HS 04/28/24 Unknown History famotidine 20 mg tablet (Pepcid) 20 mg PO BID 04/28/24 Unknown History fluticasone 250 mcg-salmeterol 50 1 inh inhalation Q12H 04/28/24 Unknown History mcg/dose blistr powdr for inhalation (Advair Diskus) Allergies Allergy/AdvReac Type Severity Reaction Status Date / Time dapagliflozin (From [facility]) Allergy Intermediate Unknown Verified 08/13/22 16:59 Penicillins Allergy Unknown Unknown Verified 08/13/22 16:59 Sulfa (Sulfonamide Allergy Unknown Unknown Verified 08/13/22 16:59 Antibiotics) Review of Systems Review of Systems: All systems reviewed & are unremarkable except as noted in HPI and below Constitutional: Constitutional: Reports as per HPI and Reports no additional constitutional complaints Eyes: Eyes: Reports as per HPI and Reports no additional eye complaints ENT: Reports system reviewed and no additional complaints, except as documented and Reports as per HPI Cardiovascular: Cardiovascular: Reports as per HPI and Reports no additional cardiovascular complaints Respiratory: Respiratory: Reports as per HPI and Reports no additional respiratory complaints Gastrointestinal: Gastrointestinal: Reports as per HPI, Reports no additional gastrointestinal complaints and Reports constipation Comments: rectal bleed/ hemorrhoids umbilical hernia Genitourinary: Genitourinary: Reports no additional female genitourinary complaints Musculoskeletal: Musculoskeletal: Reports as per HPI Integumentary/Breasts: Comments: chronic venous stasis changes both legs Neurologic: Reports system reviewed and no additional complaints, except as documented and Reports as per HPI Psychiatric: Psychiatric: Reports no additional psychiatric complaints and Reports as per HPI Endocrine: Endocrine: Reports no additional endocrine complaints and Reports as per HPI Hematologic/Lymphatic: Hematologic/Lymphatic: Reports no additional hematologic/lymphatic complaints and Reports as per HPI Allergic/Immunologic: Allergic/Immunologic: Reports no additional allergic/immunologic complaints and Reports as per HPI [facility] Past Medical History Medical History Anxiety and depression CHF (congestive heart failure), NYHA class I CHF exacerbation Hyperlipidemia Deviated septum Thyroid disorder Hypertension Heart disease Acid reflux Diabetes COPD (chronic obstructive pulmonary disease) Arthritis Anxiety Asthma Surgical History Surgical History History of dilation and curettage History of sinus surgery History of tonsillectomy and adenoidectomy Family History Family History Father Hypertension Heart disease Skin cancer Mother Asthma Diabetes mellitus Hypertension Depression Heart disease Thyroid disorder Sibling Asthma Diabetes mellitus Hypertension Depression Heart disease Son Depression Other Family history of arthritis Family history of chronic obstructive pulmonary disease Family history of mental disorder Social History Social History Social History: The patient is and lives with her . She is retired from the [employer]. She is a former smoker. She has 1 child. Code status full code Smoking packs per day: 1 Smoking cigarettes per day: 20.0 Years smoked: 6 Smoking pack-years: 6.00 Smoking status: Former smoker Tobacco type: cigarettes Second hand tobacco smoke exposure: No Alcohol intake: current Drinks per week: 2 Substance use: never Substance use type: does not use Lack of Transportation: No Lack of Food: Never True Current Housing: I Have Housing Concerned About Future Housing: No Difficulty Paying Gas/Electric Bills: No Difficulty Paying for Meds: No Currently Unemployed: No Education: High School Diploma/GED Difficulty w/ Childcare or Family Care: No Living arrangements: with family Occupation/Education: retired Gender identity (if verbalized by the patient): Female Spiritual care concerns: No Agree to blood products: Yes Exam Narrative: vitals are stable Const: General: healthy appearing Nutritional Appearance: obese Orientation/consciousness: patient oriented x3 Limitations: no limitations HENMT: Head: normal to inspection Ears: external ears normal Face/Nose/Sinus: Normal external nose present Face and sinus: normal facial exam Mouth: Yes Normal oral and palatal mucosa present Throat: posterior oropharynx normal Eyes: Conjunctivae: conjunctivae normal Pupils: Equal, round and reactive pupils present EOM: EOMs intact bilaterally Direct Ophthalmoscopy: no photophobia Neck: Neck: normal visual inspection and no lymphadenopathy Chest: Chest palpation & inspection: normal inspection of the chest Resp: Effort & Inspection: normal respiratory effort Auscultation: clear to auscultation bilaterally Cardio: Rate: regular rate Rhythm: regular rhythm GI: GI Palp: Yes Soft to palpation Auscultation: normal bowel sounds Other: no tenderness/ rigidity / rebound. Large umbilical hernia which is easily reducible rectal exam-- hemorrhoids around anal orifice : General: Yes no CVA tenderness Back/Spine/Pelvis: Back: no CVA tenderness Cervical Spine: collar present Skin: Rashes: no rashes Wounds: no wounds Other: chronic venous stasis changes both lower legs. Neuro: General: patient oriented x3, moves all extremities, no meningeal signs, no focal motor deficits and CN's II-XI intact bilaterally Cranial nerves: Yes Nystagmus not present Speech: normal speech Gait exam (Neuro): Normal gait present Extrem: General: normal to inspection and edema Other: Bilateral leg swelling with lower legs having chronic venous stasis changes. Psych: Appearance: grossly normal Mental Status: mental status grossly normal Affect: normal affect Attitude: cooperative Course Course Emergency Course: Rectal bleeding. Hemorrhoidal bleeding. H&H was noted to be 12.6/40.6. CT of the abdomen and pelvis did not show any obvious focus of infection. UA is positive for infection. CKD with a BUN/creatinine of 15/1.13. Vital Signs Vital signs: Vital Signs Temperature 36.6 C 04/28/24 10:08 Pulse Rate 66 04/28/24 10:08 Respiratory Rate 18 04/28/24 10:08 Blood Pressure 121/69 04/28/24 10:08 Pulse Oximetry 90 04/28/24 10:08 Oxygen Delivery Room Air 04/28/24 10:08 Temperature 36.6 C 04/28/24 10:08 Pulse Rate 66 04/28/24 10:08 Respiratory Rate 18 04/28/24 10:08 Blood Pressure 121/69 04/28/24 10:08 Pulse Oximetry 90 04/28/24 10:08 Oxygen Delivery Room Air 04/28/24 10:08 MDM - Female Genitourinary MDM Narrative Medical decision making narrative: Rectal bleeding/ hemorrhoidal bleeding urinary tract infection Differential Diagnosis Differential diagnosis: Likely vaginitis and cystitis Medical Records Attestation: I reviewed the patient's medical records. Lab Data Attestation: I reviewed the patient's lab results. 04/28/24 09:50 04/28/24 09:50 Labs: Lab Results 04/28/24 04/28/24 Range/Units 09:50 10:10 WBC 8.6 (4.8-10.8) K/mm3 RBC 4.10 L (4.20-5.40) M/mm3 Hgb 12.6 (11.7-13.8) g/dL Hct 40.6 (35.0-42.0) % MCV 99.0 (78.0-102.0) fL MCH 30.7 (27.0-31.0) pg MCHC 31.0 L (32-36) g/dL RDW 14.0 (11.6-14.4) % Plt Count 235 (150-420) K/mm3 MPV 9.7 (9.2-11.8) fl Immature Gran % (Auto) 1.2 H (0.0-0.0) % Neut % (Auto) 67.2 (50.0-70.0) % Lymph % (Auto) 13.1 L (18.0-42.0) % [place] % (Auto) 8.8 (2.0-11.0) % Eos % (Auto) 9.0 H (1.0-6.0) % Baso % (Auto) 0.7 (0.0-1.0) % Lymph # (Auto) 1.13 (1.10-4.50) K/mm3 [place] # (Auto) 0.76 (0.10-0.90) K/mm3 Eos # (Auto) 0.78 H (0.02-0.50) K/mm3 Baso # (Auto) 0.06 (0.00-0.10) K/mm3 Abs Immat Gran (auto) 0.10 H (0.00-0.00) K/mm3 Absolute Neuts (auto) 5.79 (1.70-7.20) K/mm3 Absolute Nucleated RBC 0.00 (0.00-0.00) K/mm3 Nucleated RBC % 0.0 (0-0.0) % PT 10.7 (9.50-12.1) Seconds INR 1.0 APTT 28.9 (23.9-30.70) Sec Sodium 141 (136-145) mmol/L Potassium 3.8 (3.5-5.1) mmol/L Chloride 100 (98-108) mmol/L Carbon Dioxide 36 H (21-32) mmol/L Anion Gap 5 (4-12) mmol/L BUN 15 (7-18) mg/dL Creatinine 1.13 H (0.55-1.02) mg/dL Estim Creat Clear Calc Not Reportable Estimated GFR 48 L (59 - ) Glucose 168 H (70-99) mg/dL Calculated Osmolality 296 H (285-295) mOsm/kg Calcium 8.6 (8.5-10.1) mg/dL Total Bilirubin 0.3 (0.00-1.00) mg/dL AST 14 L (15-37) U/L ALT 10 L (14-59) U/L Alkaline Phosphatase 86 (46-116) U/L Total Protein 6.9 (6.4-8.2) g/dL Albumin 3.1 L (3.4-5.0) g/dL Lipase 27 (16-77) U/L Urine Color Light yellow (Yellow) Urine Appearance Clear (Clear) Urine pH 6.0 (5.0-8.0) Ur Specific [place] 1.010 (1.010-1.020) Urine Protein Negative (Negative) Urine Glucose (UA) Negative (Negative) Urine Ketones Negative (Negative) Ur Blood (Man) 3+ H (Negative) Urine Nitrate Negative (Negative) Urine Bilirubin Negative (Negative) Urine Urobilinogen 0.2 (0.2-1.0) mg/dL Leukocyte Esterase Rfl 3+ H (Negative) JIL/UL Urine RBC 51-75 H (0-2) /hpf Urine WBC 31-50 H (0-3) /hpf Urine WBC Clumps Present H (None) /hpf Ur Squamous Epith Cells Few (Few) /hpf Urine Bacteria 1+ (None) /hpf Discharge Plan Discharge Clinical Impression: Rectal bleed UTI (urinary tract infection) Qualifiers: Urinary tract infection type: site unspecified Hematuria presence: with hematuria Qualified Code(s): N39.0 - Urinary tract infection, site not specified Hemorrhoids Qualifiers: Hemorrhoid type: unspecified Qualified Code(s): K64.9 - Unspecified hemorrhoids Patient Disposition: Home, Self-Care Condition: Stable Instructions: Antibiotic Form, Hemorrhoids (ED), Urinary Tract Infection in Women (ED) Patient Language: Lao Prescriptions: New nitrofurantoin macrocrystal 100 mg capsule 100 mg PO Q12H 5 Days Qty: 10 0RF Rx Instructions: must administer with a meal/food No Action torsemide 20 mg tablet 40 mg PO DAILY isosorbide mononitrate 30 mg tablet extended release 24 hr 30 mg PO DAILY nitroglycerin 0.4 mg tablet, sublingual 0.4 mg sublingual Q5M PRN (Reason: Chest Pain) Rx Instructions: up to 3 doses lamotrigine 100 mg tablet 100 mg PO QAM lamotrigine 100 mg tablet 200 mg PO HS rosuvastatin 20 mg tablet 20 mg PO HS metoprolol tartrate 25 mg tablet 25 mg PO Q12H duloxetine 30 mg capsule,delayed release(DR/EC) 90 mg PO DAILY fluocinolone acetonide oil 0.01 % drops 3 - 5 drp EACH EAR BID PRN (Reason: Itching) Januvia 100 mg tablet 50 mg PO DAILY cyanocobalamin (vitamin B-12) 1,000 mcg Capsule 1,000 mcg PO DAILY levothyroxine 175 mcg Tablet 175 mcg PO DAILY fluticasone propion-salmeterol [Advair Diskus] 250-50 mcg/dose Blister With Device 1 inh INHALATION Q12H aspirin 81 mg Tablet 81 mg PO DAILY loratadine [Claritin] 10 mg Tablet 10 mg PO DAILY PRN (Reason: Allergy Symptoms) benztropine 0.5 mg tablet 0.5 mg PO BID quetiapine 150 mg tablet 150 mg PO DAILY fluticasone propion-salmeterol [Advair Diskus] 250-50 mcg/dose blister with device 1 inh inhalation Q12H alogliptin 12.5 mg tablet 12.5 mg PO DAILY atorvastatin [Lipitor] 40 mg tablet 40 mg PO HS Eliquis 5 mg tablet 5 mg PO BID famotidine [Pepcid] 20 mg tablet 20 mg PO BID Saccharomyces boulardii [Daily Probiotic (S. boulardii)] 250 mg capsule 250 mg PO DAILY fluticasone propionate 50 mcg/actuation spray,suspension 1 spray intranasal DAILY Rx Instructions: administer into each nostril cholecalciferol (vitamin D3) 25 mcg (1,000 unit) capsule 50 mcg PO DAILY docusate sodium [Colace] 100 mg capsule 100 mg PO TID risperidone 4 mg tablet 2 mg PO HS trazodone 100 mg tablet 200 mg PO HS famotidine 20 mg tablet 20 mg PO BID losartan 100 mg tablet 100 mg PO DAILY clonidine HCl 0.2 mg tablet 0.2 mg PO BID albuterol sulfate 90 mcg/actuation HFA aerosol inhaler 2 puff inhalation Q4H PRN (Reason: Shortness Of Breath) ranolazine 500 mg tablet extended release 12 hr 1,000 mg PO BID potassium chloride 20 mEq tablet extended release 40 meq PO BID acetaminophen 500 mg tablet 1,000 mg PO Q6H PRN (Reason: Pain (Scale Score 1-3)) cefdinir 300 mg Capsule 300 mg PO Q12HR Qty: 6 0RF nitrofurantoin macrocrystal 50 mg capsule 50 mg PO DAILY Qty: 30 0RF Rx Instructions: must administer with a meal/food Follow-up/Referrals: Tommie Day MD [Primary Care Provider] - Time of Disposition: 11:49
[2024-04-28 10:08] VITALS: BP 121/69; PULSE 66; RESP 18; TEMP 36.6; O2SAT 90
[2024-04-28 10:17] LABS: Basophils Absolute Auto 0.06 K/mm3 (0.00-0.10); Basophils Percent Auto 0.7 % (0.0-1.0); Eosinophils Absolute Auto 0.78 K/mm3 (0.02-0.50); Hematocrit 40.6 % (35.0-42.0); Hemoglobin 12.6 g/dL (11.7-13.8); Immature Granulocyte Percent A 1.2 % (0.0-0.0); Lymphocytes Absolute Auto 1.13 K/mm3 (1.10-4.50); Lymphocytes Percent Auto 13.1 % (18.0-42.0); Mean Corpuscular Hemoglobin 30.7 pg (27.0-31.0); Mean Platelet Volume 9.7 fl (9.2-11.8); Monocytes Absolute Auto 0.76 K/mm3 (0.10-0.90); Monocytes Percent Auto 8.8 % (2.0-11.0); Neutrophils Absolute Auto 5.79 K/mm3 (1.70-7.20); Neutrophils Percent Auto 67.2 % (50.0-70.0); Platelet Count Result 235 K/mm3 (150-420); White Blood Count 8.6 K/mm3 (4.8-10.8)
[2024-04-28 10:20] LABS: Alanine Aminotransferase 10 U/L (14-59); Albumin Level 3.1 g/dL (3.4-5.0); Alkaline Phosphatase 86 U/L (46-116); Anion Gap 5 mmol/L (4-12); Aspartate Amino Transferase 14 U/L (15-37); Bilirubin,Total 0.3 mg/dL (0.00-1.00); Blood Urea Nitrogen 15 mg/dL (7-18); Calcium 8.6 mg/dL (8.5-10.1); Carbon Dioxide 36 mmol/L (21-32); Chloride 100 mmol/L (98-108); Estimated Glomerular Filt Rate 48; Glucose 168 mg/dL (70-99); Lipase 27 U/L (16-77); Osmolality Calculated 296 mOsm/kg (285-295); Potassium 3.8 mmol/L (3.5-5.1); Sodium 141 mmol/L (136-145); Total Protein 6.9 g/dL (6.4-8.2)
[2024-04-28 10:26] LABS: Partial Thromboplastin Time 28.9 Sec (23.9-30.70); Prothrombin Time 10.7 Seconds (9.50-12.1)
[2024-04-28 10:29] LABS: Add Urine Microscopic? YES; Appearance Urine Clear (Clear); Bilirubin Urine Negative (Negative); Blood Urine 3+ (Negative); Color Urine Light Yellow (Yellow); Glucose Urine UA Negative (Negative); Ketones Urine Negative (Negative); Leukocyte Esterase Ur 3+ LEU/UL (Negative); Nitrate Urine Negative (Negative); Protein Urine Negative (Negative); Urobilinogen Urine 0.2 mg/dL (0.2-1.0)
[2024-04-28 10:40] LABS: RBC Urine 51-75 /hpf (0-2); WBC Urine 31-50 /hpf (0-3)
[2024-04-28 10:42] LABS: Squamous Epithelial Cell Urine Few /hpf (Few); WBC Clumps Urine Present /hpf
[2024-04-28 10:43] LABS: Bacteria Urine 1+ /hpf
[2024-04-28 13:02] VITALS: BP 111/78; PULSE 59; RESP 18; TEMP 36.6; O2SAT 95
--- NOTE | 2024-04-28 13:21 | PC.NURSE ---
On 04/28/24, the student, [norm sanchez ], provided care and completed [facility] documentation on this patient. I have reviewed the student's documentation and agree with the findings.
== END 2024-04-28 13:16 | disposition home or self-care (01) ==
PROVIDERS: Emergency Provider Internal Medicine Critical Care Medicine; PCP Family Medicine
DX: N39.0 Urinary tract infection, site not specified (principal); K64.9 Unspecified hemorrhoids; E11.22 Type 2 diabetes mellitus with diabetic chronic kidney disease; I13.0 Hypertensive heart and chronic kidney disease with heart failure and stage 1 through stage 4 chronic kidney disease, or unspecified chronic kidney disease; N18.9 Chronic kidney disease, unspecified; I50.9 Heart failure, unspecified; E78.5 Hyperlipidemia, unspecified; J44.9 Chronic obstructive pulmonary disease, unspecified; Z87.891 Personal history of nicotine dependence
CPT/HCPCS: 36415; 74176; 80053; 81001; 83690; 85025; 85610; 85730; 87086; 99284